=== PATIENT | female | born 1990 | race Caucasian/White ===

== ENCOUNTER 2020-02-07 13:38 | Emergency (ER) | payer OTHER, SELFPAY ==
[2020-02-07 13:48] VITALS: BP 109/59; PULSE 80; RESP 16; TEMP 36.8; O2SAT 100
--- NOTE | 2020-02-07 14:11 | ED.URI ---
HPI - URI/Sore Throat General Chief Complaint: Upper Respiratory Infection Stated Complaint: sore throat Time Seen by Provider: 02/07/20 14:11 Source: patient Mode of arrival: ambulatory Limitations: no limitations History of Present Illness HPI Narrative: Ken Cespedes is a 29 yo female with no PMH who is here with a sore throat , rated pain in throat as 9/10, headache today, that started 1 week ago. Related Data Allergies Allergy/AdvReac Type Severity Reaction Status Date / Time Penicillins Allergy Mild Rash Verified 02/07/20 14:04 Review of Systems Review of Systems: Narrative: CONSTITUTIONAL: Denies fever, chills, sweats. EYES: Denies visual changes, redness, discharge. ENT: Denies rhinorrhea, congestion, has sore throat, otalgia. Has headache CARDIOVASCULAR: Denies chest pain, palpitations, edema. RESPIRATORY: Denies dyspnea, wheezing, cough GASTROINTESTINAL: Denies abdominal pain, nausea, vomiting, diarrhea. GENITOURINARY: Denies dysuria, hematuria, abnormal discharge SKIN: Denies rash or itching. NEUROLOGIC: Denies numbness, or focal weakness. PSYCHIATRIC: Denies anxiety or depression. [facility] Family History Family History (Updated 02/07/20 @ 14:17 by Abena Sarmiento CNP) Other No active medical problems Social History Social History (Updated 02/07/20 @ 14:17 by Abena Sarmiento CNP) Smoking status: Never smoker Alcohol intake: current Gender identity (if verbalized by the patient): Female Exam Narrative: Exam Narrative: GENERAL: This is a well-nourished, well-developed patient, in mild distress. HEAD: normocephalic, atraumatic. EYES: Sclera clear/white. Vision is grossly intact. EARS: External ears normal, auditory canals clear and without drainage, TMs normal without perforation. Hearing grossly intact. NOSE: External nose normal without nasal discharge, nares without redness, no rhinorrhea. THROAT: Mucous membranes moist, erythema posterior pharynx with mucus but no exudate NECK: Neck supple, nmild tender CARDIOVASCULAR: Regular rate and rhythm without murmurs, gallops, or rubs. RESPIRATORY: Clear to auscultation. Breath sounds equal bilaterally. No wheezes, rales, or rhonchi. GASTROINTESTINAL: Abdomen soft, SKIN: warm, intact with no suspicious lesions or rash, good texture and turgor. NEURO: awake, alert, and oriented to person, place and time. There were no obvious focal neurologic abnormalities. Steady gait EXTREMITIES: Normal range of motion. BACK: Nontender without deformity Course Course Emergency Course: Nilo is started on prednisone, Jihan-discussed hydration take medication with patient. Patient states does not need a work excuse; patient is tested for COVID every Monday morning Vital Signs Vital signs: Vital Signs Temperature 98.2 F 02/07/20 13:48 Pulse Rate 80 02/07/20 13:48 Respiratory Rate 16 02/07/20 13:48 Blood Pressure 109/59 L 02/07/20 13:48 Pulse Oximetry 100 02/07/20 13:48 Temperature 98.2 F 02/07/20 13:48 Pulse Rate 80 02/07/20 13:48 Respiratory Rate 16 02/07/20 13:48 Blood Pressure 109/59 L 02/07/20 13:48 Pulse Oximetry 100 02/07/20 13:48 MDM - URI/Sore Throat Differential Diagnosis Differential diagnosis: Likely upper respiratory infection, sinusitis, pharyngitis and other Lab Data Labs: Strep Screen Presumptive Negative *(Reference Range: Negative)* Discharge Plan Discharge Clinical Impression: Cough Pharyngitis Qualifiers: Pharyngitis/tonsillitis etiology: unspecified etiology Qualified Code(s): J02.9 - Acute pharyngitis, unspecified Patient Disposition: Home, Self-Care Condition: Stable Instructions: Pharyngitis (ED) Additional Instructions: Sure to hydrate well, use Cepacol lozenges in addition to other medication for sore throat Prescriptions: New Cepacol Sore Throat (jair-men) 15-3.6 mg lozenge 1 lozenge MUCOUS MEM Q2-4H PRN (Reason: sore throat) Qt
== END 2020-02-07 14:25 | disposition home or self-care (01) ==
PROVIDERS: Emergency Provider Nurse Practitioner
DX: R05 Cough (principal); J02.9 Acute pharyngitis, unspecified
CPT/HCPCS: 87081; 87880; 99213; G0463

== ENCOUNTER 2020-08-30 15:09 | Emergency (ER) | payer OTHER, SELFPAY ==
[2020-08-30 15:33] VITALS: BP 113/57; RESP 16; TEMP 36.3; O2SAT 100
--- NOTE | 2020-08-30 15:47 | ED.GENADULT ---
HPI - General Adult General Chief complaint: Urogenital-Female Stated complaint: pos uti Source: patient Mode of arrival: ambulatory Limitations: no limitations History of Present Illness HPI narrative: Patient presents for evaluation of urinary symptoms. She reports urinary frequency for the last 2 weeks. Today she experienced some dysuria which is mild. She is also experiencing some low back pain bilaterally. No fever, chills, nausea, vomiting, abdominal pain, vaginal bleeding or discharge. LMP at the end of July. No recent STI exposures. States no chance of . She has had urinary tract infections in the past and this feels similar. No additional complaints or concerns. Related Data Allergies Allergy/AdvReac Type Severity Reaction Status Date / Time Penicillins Allergy Mild Rash Verified 02/07/20 14:04 Review of Systems Review of Systems: Narrative: CONSTITUTIONAL: Denies fever, chills, or sweats. EYES: Denies visual changes, redness, or discharge. ENT: Denies rhinorrhea, congestion, sore throat, or otalgia. CARDIOVASCULAR: Denies chest pain, palpitations, or edema. RESPIRATORY: Denies cough or dyspnea. GASTROINTESTINAL: Denies abdominal pain, nausea, vomiting, or diarrhea. GENITOURINARY: Reports urinary frequency and mild dysuria. Denies hematuria and other urinary symptoms. SKIN: Denies rash or itching. MUSCULOSKELETAL: Reports low back pain. Denies joint pain, or myalgia. NEUROLOGIC: Denies headache, numbness, dizziness, or weakness. PSYCHIATRIC: Denies anxiety or depression. PMFSH Past Medical History Medical History (Updated 08/30/20 @ 15:56 by PIA Hurtado, ) Depression Surgical History Surgical History No pertinent past surgical history Family History Family History Mother No active medical problems Social History Social History Smoking status: Never smoker Substance use: never Living arrangements: with family Gender identity (if verbalized by the patient): Female Spiritual care concerns: No Exam Narrative: Exam Narrative: GENERAL: Well-appearing, well-nourished, and in no acute distress. HEAD: Normocephalic, atraumatic. EYES: PERRLA and EOMI. ENT: Nares clear, no rhinorrhea or epistaxis. Mucous membranes moist. Oropharynx without tonsillar hypertrophy exudate or other lesions. Bilateral TMs pearly redd nonbulging NECK: Supple. No adenopathy or masses. No carotid bruits or JVD CHEST: Clear to auscultation. No respiratory distress. No wheezes rales or rhonchi HEART: Regular rate and rhythm. No murmur heard. Normal peripheral pulses. ABDOMEN: Soft, nontender, nondistended, normal active bowel sounds. No abdominal tenderness, no CVA tenderness EXTREMITIES: Normal range of motion. No edema. SKIN: Warm, dry, no rash. NEURO: No focal deficits. Alert and oriented x3. PSYCH: Normal mood and affect. Course Course Emergency Course: 30-year-old female presents with 2-week history of urinary frequency with mild dysuria as of today. Urine dipstick shows 1+ leukocytes. She states that there is no chance of . Offered to check for STIs, which patient declined. States that current symptoms are consistent with those previously experienced with urinary tract infections. Will start Macrobid. Send urine for culture. Follow-up outpatient for further evaluation and treatment and return for any decline in condition. Vital Signs Vital signs: Vital Signs Temperature 36.3 C L 08/30/20 15:33 Respiratory Rate 16 08/30/20 15:33 Blood Pressure 113/57 L 08/30/20 15:33 Pulse Oximetry 100 08/30/20 15:33 Temperature 36.3 C L 08/30/20 15:33 Respiratory Rate 16 08/30/20 15:33 Blood Pressure 113/57 L 08/30/20 15:33 Pulse Oximetry 100 08/30/20 15:33 Medical Decision
== END 2020-08-30 16:08 | disposition home or self-care (01) ==
PROVIDERS: Emergency Provider Nurse Practitioner
DX: N30.00 Acute cystitis without hematuria (principal)
CPT/HCPCS: 81003; 87077; 87086; 87088; 87186; 99213; G0463

== ENCOUNTER 2021-02-01 16:46 | Emergency (ER) | payer OTHER, SELFPAY ==
[2021-02-01 16:52] VITALS: BP 129/74; PULSE 84; RESP 18; TEMP 37.1; O2SAT 100
--- NOTE | 2021-02-01 17:34 | ED.GENADULT ---
HPI - General Adult General Chief complaint: Urogenital-Female Stated complaint: Possible UTI Time Seen by Provider: 02/01/21 17:36 Source: patient and RN notes reviewed Mode of arrival: ambulatory Limitations: no limitations History of Present Illness HPI narrative: 30 year old female who presents to [facility] care with 2 day history of frequency , urgency of urination with burning with urination. Patient states that she has some back pain but hard to tell if it is her chronic pain or if related to UTI, denies any visual blood in urine, denies any know fevers chills or sweats. no nausea or acute abdominal discomfort. Patient also states one week duration of pain to the right lower #30 tooth with the back of tooth eroded with some redness and swelling of the gums, patient states she has noted some foul clear drainage from area. Patient denies any difficulty with her breathing or any difficulty swallowing, no trismus noted. MD complaint: UTI complaints and dental Onset (ago): day(s) (2days of UTI symptoms, 1 week of dental pain) Location: mouth (dental abscess and dental caries #30) and back (lower) Radiation: non-radiation Severity: severe Severity scale (1-10): 10 Quality: burning and aching Pain Consistency: constant Relieving factors: none Exacerbating factors: cold therapy and eating Treatments prior to arrival: none Related Data Home Medications Medication Instructions Recorded Confirmed acetaminophen-codeine 1 - 2 tablet PO Q6H PRN 02/01/21 02/01/21 methocarbamol 750 mg PO QID 02/01/21 02/01/21 sertraline 100 mg PO DAILY 02/01/21 02/01/21 Allergies Allergy/AdvReac Type Severity Reaction Status Date / Time Penicillins Allergy Mild Rash Verified 02/01/21 17:07 Review of Systems Review of Systems: Narrative: CONSTITUTIONAL: Denies fever, chills, or sweats. EYES: Denies visual changes, redness, or discharge. ENT: Denies rhinorrhea, congestion, sore throat, or otalgia.positive for dental pain #30 tooth CARDIOVASCULAR: Denies chest pain, palpitations, or edema. RESPIRATORY: Denies cough or dyspnea. GASTROINTESTINAL: Denies abdominal pain, nausea, vomiting, or diarrhea. GENITOURINARY: Positive dysuria no visible hematuria. SKIN: Denies rash or itching. MUSCULOSKELETAL: Positive for chronic lower back pain, joint pain, or myalgia. NEUROLOGIC: Denies headache, numbness, or weakness. PSYCHIATRIC: Denies anxiety or depression. All systems reviewed & are unremarkable except as noted in HPI and below PMFSH Past Medical History Medical History (Updated 02/01/21 @ 18:22 by Raquel Logan NP) Chronic back pain Depression UTI (urinary tract infection) Surgical History Surgical History No pertinent past surgical history Family History Family History Mother No active medical problems Social History Social History (Updated 02/01/21 @ 18:22 by Raquel Logan NP) Smoking status: Never smoker Alcohol intake: current Alcohol use details: rare social Substance use: never Gender identity (if verbalized by the patient): Female Spiritual care concerns: No Comments At time of signature, agree with nursing past medical, surgical, social and family history. There is no relevant family history pertinent to the presenting complaint Exam Narrative: Exam Narrative: GENERAL: Well-appearing, well-nourished, and in no acute distress. HEAD: Normocephalic, atraumatic. EYES: PERRLA and EOMI. ENT: Nares clear, no rhinorrhea or epistaxis. Mucous membranes moist.TM normal with good light reflex, throat pink with no lesions noted or tonsil enlargement. #30 tooth has back eroded with swelling and redness surrounding tooth, NECK: Supple. no lymphadenopathy, no Dillon angina, no trismus noted. CHEST: Clear to auscultation. No respiratory distress. SAO2 100% on room air. HEART: Regular rate and rhythm. No murmur hear
== END 2021-02-01 17:58 | disposition home or self-care (01) ==
PROVIDERS: Emergency Provider Registered Nurse; PCP Family Medicine
DX: N39.0 Urinary tract infection, site not specified (principal); K04.7 Periapical abscess without sinus; F41.9 Anxiety disorder, unspecified
CPT/HCPCS: 81003; 87086; 99213; G0463

== ENCOUNTER 2021-05-13 15:15 | Emergency (ER) | payer OTHER, SELFPAY ==
[2021-05-13 15:20] VITALS: BP 115/63; PULSE 65; RESP 18; TEMP 37; O2SAT 100
--- NOTE | 2021-05-13 15:30 | ED.DENTAL ---
HPI - Dental/Oral General Chief complaint: Dental/Oral Stated complaint: Lump in mouth Time Seen by Provider: 05/13/21 15:30 Source: patient History of Present Illness HPI Narrative: Patient presents with a sore under her tongue at the base left side of her tongue. Patient states it is painful to touch and has not tried anything [id number] for her symptoms. Patient denies any complaints no rashes normally healthy. Related Data Allergies Allergy/AdvReac Type Severity Reaction Status Date / Time Penicillins Allergy Mild Rash Verified 05/13/21 15:31 Review of Systems Review of Systems: CONSTITUTIONAL: Denies fever, chills, or sweats. EYES: Denies visual changes, redness, or discharge. ENT: Denies rhinorrhea, congestion, sore throat, or otalgia. CARDIOVASCULAR: Denies chest pain, palpitations, or edema. RESPIRATORY: Denies cough or dyspnea. GASTROINTESTINAL: Denies abdominal pain, nausea, vomiting, or diarrhea. GENITOURINARY: Denies dysuria or hematuria. SKIN: Denies rash or itching. MUSCULOSKELETAL: Denies back pain, joint pain, or myalgia. NEUROLOGIC: Denies headache, numbness, or weakness. PSYCHIATRIC: Denies anxiety or depression. [facility] Past Medical History Medical History (Updated 05/13/21 @ 15:41 by PIA Hart) Chronic back pain Depression UTI (urinary tract infection) Surgical History Surgical History No pertinent past surgical history Family History Family History Mother No active medical problems Social History Social History (Updated 02/01/21 @ 18:22 by Raquel Logan NP) Smoking status: Never smoker Alcohol intake: current Alcohol use details: rare social Substance use: never Gender identity (if verbalized by the patient): Female Spiritual care concerns: No Comments At time of signature, agree with nursing past medical, surgical, social and family history. There is no relevant family history pertinent to the presenting complaint Exam Narrative: GENERAL: Well-appearing, well-nourished, and in no acute distress. HEAD: Normocephalic, atraumatic. EYES: PERRLA and EOMI. ENT: Nares clear, no rhinorrhea or epistaxis. Mucous membranes moist. NECK: Supple. CHEST: Clear to auscultation. No respiratory distress. HEART: Regular rate and rhythm. No murmur heard. Normal peripheral pulses. ABDOMEN: Soft, nontender, nondistended, normal active bowel sounds. EXTREMITIES: Normal range of motion. No edema. SKIN: Warm, dry, no rash. NEURO: No focal deficits. Alert and oriented x3. Becky Coma Scale Eye Opening: Spontaneous 4 Loraine Coma Scale Motor: Obeys Commands 6 Loraine Coma Scale Verbal: Oriented 5 Becky Coma Scale Total 15 HENMT: Mouth: Yes Abnormal oral and palatal mucosa present ulceration (to under sode of tongue consistent with canker sore) Course Vital Signs Vital signs: Vital Signs Temperature 37.0 C 05/13/21 15:20 Pulse Rate 65 05/13/21 15:20 Respiratory Rate 18 05/13/21 15:20 Blood Pressure 115/63 05/13/21 15:20 Pulse Oximetry 100 05/13/21 15:20 Temperature 37.0 C 05/13/21 15:20 Pulse Rate 65 05/13/21 15:20 Respiratory Rate 18 05/13/21 15:20 Blood Pressure 115/63 05/13/21 15:20 Pulse Oximetry 100 05/13/21 15:20 MDM - Dental/Oral Differential Diagnosis Differential diagnosis: Likely gingival abscess, dental caries, dental abscess, fracture of tooth, aphthous ulcer and other Discharge Plan Discharge Clinical Impression: Aphthous ulcer Patient Disposition: Home, Self-Care Condition: Stable Instructions: Antibiotic Form, Canker Sores (ED) Additional Instructions: Avoid any hot and/or spicy foods Use medication to canker sore as prescribed Follow-up with primary care provider in 2 to 3 days for reevaluation If any new or worsening symptoms go to ER immediately for further evaluation tr
== END 2021-05-13 15:45 | disposition home or self-care (01) ==
PROVIDERS: Emergency Provider Nurse Practitioner Family; PCP Family Medicine
DX: K12.0 Recurrent oral aphthae (principal)
CPT/HCPCS: 99213; G0463

== ENCOUNTER 2022-05-05 00:54 | Day surgery (SDC) | payer OTHER, SELFPAY ==
[2022-04-25 16:12] VITALS: BMI 24.8
--- NOTE | 2022-04-25 16:30 | PC.NURSE ---
Report to the Outpatient Waiting Room, entrance under the green pavilion located off [facility], at time 0600 on date 05/05/22. OR Time: 0730. Time changes happen often and if your time is changed the preop area will call you the afternoon before. - You and your visitor will be asked to self-screen and do not enter if you have any COVID symptoms. - Only one visitor and NO children visitors are allowed at this time. - The patient visitor is requested to leave or wait in car when not with patient due to restrictions. - A mask is required within the hospital. Patients may have clear liquids (water, carbonated beverages, clear teas, apple juice) until 3 hours prior to surgery with a maximum of 20 ounces 0430. - No food from midnight until time of surgery - Infants may have breast milk until 4 hours before surgery, infant formula 6 hours prior to surgery. - Children will be allowed to drink immediately following surgery. If applicable, please bring a bottle or sippy cup to assist with drinking. Juice, water, soda, and popsicles are readily available. For infants on formula, please bring formula the day of surgery. Pacifiers are allowed. Take the following medications with a SIP of water the morning of surgery: sertraline Medications to discontinue per physician multivitamin Date to take last dose 05/02/22 Please no make-up, nail german, hairspray, perfume, deodorant, or body powder the day of surgery. No jewelry (including any body piercings) or valuables the day of surgery, leave them at home. Please take a shower or bath the night before, or the morning of, surgery with an antibacterial soap. Wear comfortable, loose fitting clothing. Children are encouraged to wear pajamas. - Jewelry must be removed prior to entering the operating room. Rings and piercings that are not removed may be cut off. - The hospital will not accept responsibility for valuables. - Please leave all valuables, including medications, at home the day of surgery. If you are going home after surgery, a licensed rental car ferry driver must drive you home. - NO public transportation without another adult. - We recommend that an adult stay with you for 24 hours following discharge. - We also recommend that you do not drive, make important decision, drink alcoholic beverages, or take any drugs that were not prescribed by your health care provider for at least 24 hours after your discharge time. For Pediatric surgeries, we recommend two adults accompany the child home (only one inside the building at this time). Follow any additional instructions given to you from your surgeon. If you or anyone in your household have experienced Covid symptoms in the past week, please notify your surgeon or the nurse liaison at the phone number below for possible testing. Telephone instructions given to Ken Cespedes and asked if any additional questions and then verbalized understanding. Patient advised to call surgeon office or pre surgery nurse liaison [phone] if any additional questions.
[2022-05-05] VITALS (8 sets, daily range): BP systolic 105–130; BP diastolic 62–78; PULSE 76–114; RESP 12–24; TEMP 36.1–36.9; O2SAT 97–100
--- NOTE | 2022-05-05 06:50 | WPDANESEPPF ---
Anes - Initial Pre Proc Eval Procedure: Operation Date: 05/05/22 07:30 Proposed Procedures p Bilateral Breast Augmentation - Julio Cesar Harley MD Date/Time: 05/05/22 06:50 Surgeon: Julio Cesar Harley MD Pre Op Diagnosis: micromastia Patient Data Age: 32 Gender: F Height: 1.6 m Weight: 60.4 kg Last Vital Signs Temp 36.9 C 05/05/22 06:31 Pulse 76 05/05/22 06:31 Resp 16 05/05/22 06:31 BP 105/62 05/05/22 06:31 Pulse Ox 100 05/05/22 06:31 O2 Del Method Room Air 05/05/22 06:31 Allergies Allergy/AdvReac Type Severity Reaction Status Date / Time Penicillins Allergy Intermediate Hives Verified 05/05/22 06:37 Home Medications Medication Instructions Recorded Confirmed Type pediatric multivitamin no.25-folic 1 tablet PO DAILY 04/25/22 05/05/22 History acid 300 mcg chewable tablet (Flintstones Multivitamin) sertraline 100 mg tablet (Zoloft) 100 mg PO DAILY 04/25/22 05/05/22 History Patient hx anesthesia problems: none Family hx anesthesia problems: none Results Review: All pre-operative results and documents have been reviewed as part of the pre-operative evaluation. [facility] Past Medical History Medical History Chronic back pain Depression UTI (urinary tract infection) Surgical History Surgical History No pertinent past surgical history Family History Family History Mother No active medical problems Social History Social History Smoking status: Never smoker Alcohol intake: current Alcohol use details: rare social Substance use: never Living arrangements: alone Gender identity (if verbalized by the patient): Female Spiritual care concerns: No Anes - Eval Final PreProcedure Day of Procedure 05/05/22 06:50 Patient weight: normal Heart: regular rate and rhythm Lungs: clear to auscultation Airway: Mallampati scale class 1 Neurological: alert and oriented Last oral intake: >/= 8 hours ASA classification: II Emergent: no Anesthetic plan: proceed Anesthesia type and monitoring: general LMA and standard monitoring Results Review: All pre-operative results and documents have been reviewed as part of the pre-operative evaluation. Informed Consent: The patient's anesthetic plan and its attendant risks and benefits were discussed with the patient/family/POA. Questions were solicited and answers provided to the satisfaction of the patient/family/POA.
[2022-05-05] MEDS: LACTATED RINGERS 1,000 ML 30 ML IV CONT ×2 (06:53→08:23)
[2022-05-05] MEDS: SCOPOLAMINE 1.5 MG PATCH TRANSDERM (06:54)
--- NOTE | 2022-05-05 06:54 | WPDHPUPDATE1 ---
History and Physical Update Update Date/Time: 05/05/22 06:54 History and Physical has been reviewed, including an updated exam of the patient. There are NO changes in the patient's condition. Risks, benefits, and alternatives have been discussed and questions answered. Patient agrees to proceed with procedure.
--- NOTE | 2022-05-05 07:03 | W.PM.PROC2 ---
Procedure Note - Detailed Date of Procedure 05/05/22 Pre-op Diagnosis micromastia Post-op Diagnosis Same Procedure Performed Bilateral Augmentation Mammaplasty Surgeon Julio Cesar Harley MD Anesthesia General Findings Bilateral dual plane 1 augmentation Kalyan Cortez SoftTouch 485cc Right REF# [id number] SN [id number] Left REF# [id number] SN [id number] Description of Procedure She is here today for bilateral breast augmentation. Previously and again today the risks, benefits, alternatives were discussed in extensive detail. I wanted her to be very realistic about the risks involved as well as expectations. We discussed aftercare and what to monitor for. Made sure answered all of her questions to her satisfaction today and consent was obtained. Marked in the preoperative holding area with their verification. The patient was taken to the operating room placed supine on the operating table. Anesthesia was provided by anesthesiology. A surgical time-out was taken. We cleansed the skin and 1% lidocaine and 0.25% Marcaine with epinephrine was used anesthetize as a field block. She was prepped and draped in a standard sterile fashion. Tegaderm nipple Burger were placed. A 15 blade used to make an incision along the inframammary fold. Dissection was continued at 45 degree angle until the chest wall as identified. I incised the pectoralis major along its inferior border and completely released the inferior border leaving the medial border intact. I created a subpectoral pocket in the appropriate dimensions based on our preoperative planning for the implant. I then copiously irrigated with saline solution and verified a strict hemostasis. Next the use a triple antibiotic and Betadine containing solution to irrigate the pocket. I washed my gloves with the triple antibiotic and Betadine solution. We washed the implant immediately upon opening it with this solution and only opened it when we needed it. I used implant funnel and no-touch technique. The implant was introduced into the pocket using the funnel. Having verified positioning of the implant this was closed using 2-0 Vicryl followed by 3-0 Monocryl in a running subcuticular 4-0 Monocryl followed by tissue glue. Fluffs and surgical bra were placed. Patient was awoke and taken to PACU without difficulty. All instrument sponge counts were correct at the end of the case. Estimated Blood Loss 20 Drains No Packing No Pathology None sent Complications No immediate complications Condition Stable Disposition PACU
[2022-05-05] MEDS: TRANEXAMIC ACID 1,000MG/ISO100 1,000 MG/100 ML BAG 200 MG IVPB (07:23)
[2022-05-05] MEDS: BUPIVACAINE/EPINEPHRINE 0.25% 50 ML VIAL 30 ML INFILTRATE (07:24)
[2022-05-05] MEDS: NACL 0.9% IRRIG POUR BOTTLE 900 ML, GENTAMICIN SULFATE INJ 160 MG, CLINDAMYCIN PHOS INJ... IRRIGATION (07:24)
[2022-05-05] MEDS: LIDOCAINE HCL 1% PF 30 ML VIAL INFILTRATE (07:24)
[2022-05-05] MEDS: ceFAZolin 2 GM/D5W 50 ML 2 GM/50 ML BAG IVPB (07:30)
[2022-05-05] MEDS: HYDROmorphone HCL INJ (*CRX) 1 MG/ML SYR 0.5 MG IV PUSH ×4 (08:39→08:57)
[2022-05-05] MEDS: oxyCODONE HCL (*CRX) 5 MG TAB IR PO (09:42)
== END 2022-05-05 10:30 | disposition home or self-care (01) ==
PROVIDERS: PCP Family Medicine; Visit Provider Surgery Plastic and Reconstructive Surgery
PROC: (CPT 19325; principal; 2022-05-05 07:30)
DX: Z41.1 Encounter for cosmetic surgery (principal); N64.82 Hypoplasia of breast; F32.A Depression, unspecified
CPT/HCPCS: 19325; A9270; J0690; J1100; J1170; J1580; J2250; J2405; J2704; J3010; J7120

== ENCOUNTER 2023-07-25 10:42 | Emergency (ER) | payer OTHER, SELFPAY ==
[2023-07-25 10:54] VITALS: BP 105/70; PULSE 79; RESP 18; TEMP 37.1; O2SAT 100
--- NOTE | 2023-07-25 11:47 | ED.FEMALEGU ---
HPI - Female Genitourinary General Chief complaint: Urogenital-Female Stated complaint: Urinary Problem Time Seen by Provider: 07/25/23 11:48 Source: patient, RN notes reviewed and old records reviewed Mode of arrival: ambulatory Limitations: no limitations History of Present Illness HPI Narrative: 33 year old female who presents to [facility] care with complaints of urinary burning, foul odor of urine, and some frequency and urgency with voiding small amounts for the past 5 days with increased symptoms since last night. Patient reports no known fevers, chills or sweats, denies any nausea vomiting or diarrhea.Patient reports some perineal pressure and some low back pain, denies any CVA tenderness or any history of kidney stones. Patient denies any vaginal discharge or any concern for STD's MD elicited complaint: UTI Pertinent past history: other (UTI's) Onset (ago): day(s) (5) Severity: similar to previous episodes Severity scale (1-10): 4 Quality of pain: burning and aching Vaginal discharge: none Vaginal bleeding: none Related Data Home Medications Medication Instructions Recorded Confirmed pediatric multivitamin no.25-folic 1 tablet PO DAILY 04/25/22 07/25/23 acid 300 mcg chewable tablet (Flintstones Multivitamin) Allergies Allergy/AdvReac Type Severity Reaction Status Date / Time Penicillins Allergy Intermediate Hives Verified 07/25/23 11:14 Review of Systems Review of Systems: CONSTITUTIONAL: Denies fever, chills, or sweats. CARDIOVASCULAR: Denies chest pain, palpitations, or edema. RESPIRATORY: Denies cough or dyspnea. GASTROINTESTINAL: Denies abdominal pain, nausea, vomiting, or diarrhea. GENITOURINARY: Reports dysuria, frequency, urgency. Denies flank pain or hematuria, reports perineal pressure SKIN: Denies rash or itching. MUSCULOSKELETAL: reports low back pain or myalgia. Denies CVA tenderness NEUROLOGIC: Denies headache All systems reviewed & are unremarkable except as noted in HPI and below PMFSH Past Medical History Medical History (Updated 07/26/23 @ 00:02 by Artemio Rodriguez) Chronic back pain Depression UTI (urinary tract infection) Surgical History Surgical History (Updated 07/26/23 @ 21:24 by Raquel Logan NP) H/O breast augmentation Family History Family History Mother No active medical problems Social History Social History Smoking status: Never smoker Alcohol intake: current Alcohol use details: rare social Substance use: never Living arrangements: alone Gender identity (if verbalized by the patient): Female Spiritual care concerns: No Comments At time of signature, agree with nursing past medical, surgical, social and family history. There is no relevant family history pertinent to the presenting complaint Exam Narrative: GENERAL: Well-appearing, well-nourished, and in no acute distress. HEAD: Normocephalic, atraumatic. NECK: Supple. no lymphadenopathy CHEST: Clear to auscultation. No respiratory distress.SAO2 100% on room air HEART: Regular rate and rhythm. No murmur heard. Normal peripheral pulses. ABDOMEN: Soft, nontender, nondistended, normal active bowel sounds. No CVA tenderness perineal pressure reported with dysuria, urgency frequency and voiding of small amounts. EXTREMITIES: Normal range of motion. No edema. SKIN: Warm, dry, no rash. NEURO: No focal deficits. Alert and oriented x3. Course Course Emergency Course: Patient is aware of diagnosis, understands and agrees to treatment plan.? Anticipatory guidance given.? Patient agrees to follow-up as directed and is aware of reasons to seek care at the emergency department. Portions of this record may have been created with voice recognition software Level of Care: Express Care Visit Vital Signs Vital signs: Vital Signs Temperature 37.1 C 07/25/23 10:54 Pulse
== END 2023-07-25 12:00 | disposition home or self-care (01) ==
PROVIDERS: Emergency Provider Registered Nurse; PCP Family Medicine
DX: R30.0 Dysuria (principal); R39.15 Urgency of urination
CPT/HCPCS: 81003; 87086; 87088; 99213; G0463

== ENCOUNTER 2024-01-15 16:47 | Emergency (ER) | payer OTHER, SELFPAY ==
[2024-01-15 16:56] VITALS: BP 125/78; PULSE 78; RESP 20; TEMP 37.1; O2SAT 100
--- NOTE | 2024-01-15 16:59 | ED.EYEPROB ---
HPI - Eye Problem General Chief complaint: Eye Problems Stated complaint: poss pink eye Source: patient Mode of arrival: ambulatory Limitations: no limitations History of Present Illness HPI Narrative: 33-year-old female presented for complaint of right eye redness and itching with yellowed drainage. Onset today. Endorses nasal congestion, sore throat cough over the past several days. Denies shortness of breath, wheezing nausea vomiting, fevers or chills. No treatment prior to arrival. MD chief complaint: eye pain Related Data Allergies Allergy/AdvReac Type Severity Reaction Status Date / Time Penicillins Allergy Intermediate Hives Verified 07/25/23 11:14 Review of Systems Review of Systems: CONSTITUTIONAL: Denies body aches, fever, chills EYES:Endorses redness and drainage to right eye; Denies visual changes, FB sensation, photophobia ENT: Denies rhinorrhea, congestion, sore throat, or otalgia. CARDIOVASCULAR: Denies chest pain, palpitations RESPIRATORY: Denies cough or dyspnea. SKIN: Denies rash, itching, or wounds. MUSCULOSKELETAL: Denies back pain, joint pain, or myalgia. NEUROLOGIC: Denies headache, numbness, tingling, or weakness. All systems reviewed & are unremarkable except as noted in HPI and below PMFSH Past Medical History Medical History Chronic back pain Depression UTI (urinary tract infection) Surgical History Surgical History H/O breast augmentation Family History Family History Mother No active medical problems Social History Social History Smoking status: Never smoker Alcohol intake: current Alcohol use details: rare social Substance use: never Living arrangements: alone Gender identity (if verbalized by the patient): Female Spiritual care concerns: No Comments At time of signature, I have reviewed and agree with nursing past medical, surgical, social and family history unless otherwise noted. Please see nursing chart for further information. There is no relevant family history pertinent to the presenting complaint Exam Narrative: GENERAL: Well-appearing EYES: right conjunctival injection and purulent drainage, no eye lid swelling/redness, PERRLA EOMI. Lid eversion shows no foreign body ENT: Mucous membranes pink and moist. No rhinorrhea. TMs normal bilaterally. Throat normal. Uvula midline. CHEST: Clear to auscultation. ABDOMEN: Soft, nontender, nondistended SKIN: Warm, dry, no rash. Normal skin turgor. NEURO: No focal deficits. Alert and oriented x3 PSYCH: Normal affect. Course Course Emergency Course: Patient is aware of diagnosis, understands and agrees to treatment plan. Anticipatory guidance given. Patient agrees to follow-up as directed and is aware of reasons to seek care at the emergency department. Portions of this record may have been created with voice recognition software Level of Care: Express Care Visit Vital Signs Vital signs: Vital Signs Temperature 98.7 F 01/15/24 16:56 Pulse Rate 78 01/15/24 16:56 Respiratory Rate 20 01/15/24 16:56 Blood Pressure 125/78 01/15/24 16:56 Pulse Oximetry 100 01/15/24 16:56 Oxygen Delivery Room Air 01/15/24 16:56 Temperature 98.7 F 01/15/24 16:56 Pulse Rate 78 01/15/24 16:56 Respiratory Rate 20 01/15/24 16:56 Blood Pressure 125/78 01/15/24 16:56 Pulse Oximetry 100 01/15/24 16:56 Oxygen Delivery Room Air 01/15/24 16:56 MDM - Eye Problem Differential Diagnosis Differential diagnosis: Likely corneal abrasion, conjunctivitis, acute iritis and other Discharge Plan Discharge Clinical Impression: Bacterial conjunctivitis Patient Disposition: Home, Self-Care Condition: Stable Instructions: Antibiotic Form,
== END 2024-01-15 17:15 | disposition home or self-care (01) ==
PROVIDERS: Emergency Provider Nurse Practitioner Family; PCP Family Medicine
DX: H10.9 Unspecified conjunctivitis (principal)
CPT/HCPCS: 99213; G0463

== ENCOUNTER 2024-01-24 18:05 | Emergency (ER) | payer OTHER, SELFPAY ==
[2024-01-24 18:08] VITALS: BP 131/67; PULSE 79; RESP 20; TEMP 37.1; O2SAT 100
--- NOTE | 2024-01-24 18:18 | ED.URI ---
HPI - URI/Sore Throat General Chief Complaint: Upper Respiratory Infection Stated Complaint: Strep test Time Seen by Provider: 01/24/24 18:21 History of Present Illness HPI Narrative: 33-year-old female presented for complaint of sore throat and nasal congestion for about 4 weeks. Endorses painful swallow, throat pain is worse at night. She states she has not taken the time to be evaluated. She has taking ibuprofen. Denies shortness of breath, wheezing nausea, vomiting, fevers or chills. Related Data Allergies Allergy/AdvReac Type Severity Reaction Status Date / Time Penicillins Allergy Intermediate Hives Verified 01/24/24 18:10 Review of Systems Review of Systems: CONSTITUTIONAL: Denies body aches, fever, chills, or sweats. EYES: Denies visual changes, redness, or discharge. ENT: reports sore throat, rhinorrhea, congestion CARDIOVASCULAR: Denies chest pain, palpitations, or edema. RESPIRATORY: Denies dyspnea. GASTROINTESTINAL: Denies abdominal pain, nausea, vomiting, or diarrhea. SKIN: Denies rash, itching, or wounds. MUSCULOSKELETAL: Denies back pain, joint pain, or myalgia. NEUROLOGIC: Denies headache PMFSH Past Medical History Medical History Chronic back pain Depression UTI (urinary tract infection) Surgical History Surgical History H/O breast augmentation Family History Family History Mother No active medical problems Social History Social History Smoking status: Never smoker Alcohol intake: current Alcohol use details: rare social Substance use: never Living arrangements: alone Gender identity (if verbalized by the patient): Female Spiritual care concerns: No Exam Narrative: GENERAL: well-appearing, no acute distress. EYES: conjunctivae clear ENT: Mucous membranes moist. TMs pearly redd with normal light reflex bilaterally; no tragal tenderness. Oropharynx erythematous without lesions. Tonsils not enlarged and without exudate. No drooling, no hoarseness, no trismus, uvula midline. No tripod positioning, hot potato voice, or soft palate swelling. NECK: Supple. No lymphadenopathy CHEST: Clear to auscultation, breath sounds equal. No respiratory distress, speaks in full sentences. HEART: Regular rate and rhythm. No murmur heard. SKIN: Warm, dry, no rash. NEURO: Alert and oriented x3. Course Course Emergency Course: Patient is aware of diagnosis, understands and agrees to treatment plan. Anticipatory guidance given. Patient agrees to follow-up as directed and is aware of reasons to seek care at the emergency department. Portions of this record may have been created with voice recognition software Level of Care: Express Care Visit Vital Signs Vital signs: Vital Signs Temperature 98.7 F 01/24/24 18:08 Pulse Rate 79 01/24/24 18:08 Respiratory Rate 20 01/24/24 18:08 Blood Pressure 131/67 01/24/24 18:08 Pulse Oximetry 100 01/24/24 18:08 Oxygen Delivery Room Air 01/24/24 18:08 Temperature 98.7 F 01/24/24 18:08 Pulse Rate 79 01/24/24 18:08 Respiratory Rate 20 01/24/24 18:08 Blood Pressure 131/67 01/24/24 18:08 Pulse Oximetry 100 01/24/24 18:08 Oxygen Delivery Room Air 01/24/24 18:08 MDM - URI/Sore Throat MDM Narrative Medical decision making narrative: neg strep result reviewed with pt. Advise supportive treatments. Patient is appropriate for outpatient treatment and follow-up. Differential Diagnosis Differential diagnosis: Likely upper respiratory infection, viral infection and pharyngitis Discharge Plan Discharge Clinical Impression: Upper respiratory infection Patient Disposition: Home, Self-Care Condition: Stable Instructions: Antibiotic Form, Rhinosinusitis (ED) Additiona
[2024-01-24 18:20] VITALS: BP 131/67; PULSE 79; RESP 20; TEMP 37.1; O2SAT 100
[2024-01-24 18:44] LABS: EDSTREPNEGPOS1 Presumptive Negative
== END 2024-01-24 18:30 | disposition home or self-care (01) ==
PROVIDERS: Emergency Provider Nurse Practitioner Family; PCP Family Medicine
DX: J06.9 Acute upper respiratory infection, unspecified (principal)
CPT/HCPCS: 87081; 87880; 99213; G0463

== ENCOUNTER 2024-02-13 08:45 | Emergency (ER) | payer OTHER, SELFPAY ==
[2024-02-13 08:52] VITALS: BP 115/58; PULSE 73; RESP 18; TEMP 36.7; O2SAT 100
--- NOTE | 2024-02-13 08:56 | ED.EYEPROB ---
HPI - Eye Problem General Chief complaint: Eye Problems Stated complaint: left eye Time Seen by Provider: 02/13/24 08:55 Source: patient and RN notes reviewed Mode of arrival: ambulatory Limitations: no limitations History of Present Illness HPI Narrative: 33 year old female presents concern for left upper eyelid redness, itchiness for 3 days. She denies drainage from the eye, eye redness, vision changes, pain. She reports she is allergic to poison brody, she has been outside mowing the lawn but has no known direct exposure poison brody. chief complaint: other (Eyelid itchiness) Related Data Allergies Allergy/AdvReac Type Severity Reaction Status Date / Time Penicillins Allergy Intermediate Hives Verified 01/24/24 18:10 Review of Systems Review of Systems: CONSTITUTIONAL: Denies malaise, chills, sweats, or fever. EYES: Denies visual changes. Denies eye redness, irritation, discharge. ENT: Denies rhinorrhea, congestion, sinus pain, otalgia or sore throat. SKIN: Reports left upper eyelid redness, itchiness NEUROLOGIC: Denies numbness, weakness, or headache. PSYCHIATRIC: Denies anxiety or depression. All systems reviewed & are unremarkable except as noted in HPI and below PMFSH Past Medical History Medical History Chronic back pain Depression UTI (urinary tract infection) Surgical History Surgical History H/O breast augmentation Family History Family History Mother No active medical problems Social History Social History Smoking status: Never smoker Alcohol intake: current Alcohol use details: rare social Substance use: never Living arrangements: alone Gender identity (if verbalized by the patient): Female Spiritual care concerns: No Comments At time of signature, agree with nursing past medical, surgical, social and family history. There is no relevant family history pertinent to the presenting complaint Exam Narrative: GENERAL: Well-appearing, well-nourished, and in no acute distress. HEAD: Normocephalic, atraumatic. EYES: PERRLA, sclera clear, and EOMI. No nystagmus. Bilateral conjunctivae and sclera clear. Right Upper and lower eyelid unremarkable, no periorbital edema noted ENT: Nares clear, turbinates pink, no rhinorrhea or epistaxis. Mucous membranes moist. TM pearly redd with sharp light reflex bilaterally; no tragal tenderness. NECK: Supple. CHEST: No respiratory distress. Speaks in full sentences. HEART: Regular rate and rhythm. SKIN: Warm, dry. Left eyelid erythematous, plaque like rash NEURO: Alert and oriented x3. PSYCH: Normal mood and affect Course Course Emergency Course: Patient is aware of diagnosis, understands and agrees to treatment plan. Anticipatory guidance given. Patient agrees to follow-up as directed and is aware of reasons to seek care at the emergency department. Portions of this record may have been created with voice recognition software Level of Care: Express Care Visit Vital Signs Vital signs: Reviewed. MDM - Eye Problem MDM Narrative Medical decision making narrative: Consideration of the following conditions may be warranted for the presenting problem, they are not final diagnoses: Dermatitis, Bacterial conjunctivitis, allergic conjunctivitis, viral conjunctivitis, foreign body, blepharitis, chalazion, hordeolum, corneal abrasion, preseptal cellulitis, orbital cellulitis. No evidence of proptosis, ophthalmoplegia, vision loss, pain with eye movement. Exam findings show no acute concerns or changes; patient is non-toxic appearing and is in no distress. Patient is appropriate for outpatient treatment and follow-up. Critical Care Time Critical Care Time Critical Care Time: No Discharge Plan Discharge Clinical Impressi
== END 2024-02-13 09:14 | disposition home or self-care (01) ==
PROVIDERS: Emergency Provider Nurse Practitioner; PCP Family Medicine
DX: L30.9 Dermatitis, unspecified (principal)
CPT/HCPCS: 99213; G0463

== ENCOUNTER 2024-10-07 08:17 | Emergency (ER) | payer OTHER, SELFPAY ==
[2024-10-07 08:26] VITALS: BP 128/59; PULSE 88; RESP 20; TEMP 36.3; O2SAT 100
--- OUTSIDE RECORDS SUMMARY | 2024-10-07 08:36 | XMS_ITS | Clinical Summary ---
Author Organization [facility] Address [address] [address] Care Team Providers Care Solution Make Up Operator Name Role Phone Andrew Brownlee MD Primary Care Provider [phone] Allergies Active Allergy Reactions Criticality Noted Date Comments Penicillins Hives,Rash Reaction: Hives, Skin Rash, , Medications No known medications Active Problems No known active problems Social History Tobacco Use Types Packs/Day Years Used Date Smoking Tobacco: Never Alcohol Use Standard Drinks/Week Comments No 0 (1 standard drink = 0.6 oz pur e alcohol) Personal Safety Answer Date Recorded Getting School Help Needed Not on file 02/02 Comments Unknown Sex and Gender Information Value Date Recorded Sex Assigned at Not on file Legal Sex Female 5:50 PM 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 Gender Identity Not on file Sexual Orientation Not on file Obstetrics History Last Filed Vital Signs Vital Sign Reading Time Taken Comments Blood Pressure 118/60 01/14/2023 4:16 PM CDT Pulse 91 01/14/2023 4:16 PM CDT Temperature 36.5 C (97.7 F) 01/14/2023 4:16 PM CDT Respiratory Rate 18 01/14/2023 4:16 PM CDT Oxygen Saturation 100% 01/14/2023 4:16 PM CDT Inhaled Oxygen Concentration - - Weight 65.8 kg (145 lb) 01/14/2023 4:16 PM CDT Height 160 cm (5' 3 ) 01/14/2023 4:16 PM CDT Body Mass Index 25.69 01/14/2023 4:16 PM CDT Plan of Treatment Health Maintenance Due Date Last Done Comments Cervical Cancer Screening 1990 Depression Screening 1991 Hepatitis C Screening 1991 Regular Well Visit/Exam 18-64 2009 Varicella Vaccines (2 of 2 - 13+ 2-dose series) 02/09/2016 01/12/2016 Covid-19 Vaccine (2 - 2023- season) 2024 02/10/2021 Influenza Vaccine (#1) 2024 , 04/15/2021, 07/01/2017, Additional history exists DTaP/Tdap/Td Vaccine (10 - Td or Tdap) 07/01/2027 07/01/2017, 01/12/2016, 06/05/2013, Additional history exists Hepatitis B Screening Completed 03/26/1998 , 11/21/1997, 10/22/1997 HPV Vaccines Aged Out No longer eligi ble based on patient's age to complete this topic Pneumococcal vaccine <65 Aged Out No longer eligible based on patient's age to complete this topic Insurance [facility] Care Teams Solution Make Up Operator Relationship Specialty Start Date End Date Andrew Brownlee MD [address] [address] PCP - General Family Medicine 08/31/22
--- OUTSIDE RECORDS SUMMARY | 2024-10-07 08:36 | XMS_ITS | Encounter Summary ---
Author Organization [facility] Address [address] [place] [address] Phone Care Team Providers Care Business Performance Analyst Name Role Phone Catina Ram MD Unavailable Andrew Brownlee MD Primary Care Provider [phone] Reason for Visit * Reason Comments Medication Refill Encounter Details Date Type Department Care Team (Late st Contact Info) Description 05/16/2021 Refill [facility] [address] [place] [address] Andrew Brownlee MD [address] [place] [address] Medication Refill Social History Tobacco Use Types Packs/Day Years Used Date Smoking Tobacco: Never Smokeless Tobacco: Never Alcohol Use Standard Drinks/Week Comments No 0 (1 standard drink = 0.6 oz pur e alcohol) PHQ-2 Answer Date Recorded Total Score - Questions 1-9 3 040 08/2020 Education Answer Date Recorded What is the highest level of school you have completed or the highest degree you have received? Some college, no degree 08/02/2020 Sexually Active Control Partners Comments Not Currently Male Comments No Sex and Gender Information Value Date Recorded Sex Assigned at Not on file Legal Sex Female 7:06 PM CDT Gender Identity Not on file Sexual Orientation Not on file documented as of this encounter Miscellaneous Notes * Telephone Encounter - Marylu Khan RN - 05/18/2021 10:53 AM CDT Medication failed the protocol, provider to review and approve the medication order if appropriate. Requested Prescriptions Pending Prescriptions Disp Refills sertraline (ZOLOFT) 100 MG Tablet [Pharmacy Med Name: SERTRALINE HCL 100 MG TABLET] 45 Tablet 2 Sig: TAKE 1 AND 1/2 TABLETS BY MOUTH DAILY SSRI (6 Month Refill Only) Protocol Failed - 05/16/2021 5:02 PM Failed - Patient has established therapy with SSRI for at least 6 months Passed - No test in the past 12 months or most recent test was negative Passed - No active on record Passed - Visit with relevant provider in past 6 months or upcoming 90 days Recent Visits Date Type Provider Dept 01/28/21 Office Visit Andrew Brownlee MD [facility] Showing recent visits within past 182 days and meeting all other requirements Future Appointments No visits were found meeting these conditions. Showing future appointments within next 90 days and meeting all other requirements Passed - Has an encounter in the past 6 months with a depression, anxiety, adjustment disorder, OCD, or PTSD visit diagnosis documented in this encounter Plan of Treatment Not on file documented as of this encounter Visit Diagnoses Diagnosis Anxiety Anxiety state, unspecified documented in this encounter Additional Health Concerns Assessment Noted Time PHQ-9 Depression Total Score: 3 10/24/19 21 9:00 AM CDT documented as of this encounter Care Teams Business Performance Analyst Relationship Specialty Start Date End Date Andrew Brownlee MD PCP - General Family Medicine 01/14/19 04/10/24 Catina Ram MD Consulting Physician Obstetrics & Gynecology 05/16/16 documented as of this encounter
--- OUTSIDE RECORDS SUMMARY | 2024-10-07 08:36 | XMS_ITS | Encounter Summary ---
Author Organization [facility] Address [address] [facility] [place] [address] Phone Care Team Providers Care Supervisor Harvesting Name Role Phone Catina Ram MD Unavailable [phone] Andrew Brownlee MD Primary Care Provider [phone] Reason for Visit * Reason Comments Medication Refill Encounter Details Date Type Department Care Team (Late st Contact Info) Description 07/25/2021 Refill [facility] - Family Medicine - [address] [place] [id number] Andrew Brownlee MD [address] [place] [address] Medication Refill Social History Tobacco Use Types Packs/Day Years Used Date Smoking Tobacco: Never Smokeless Tobacco: Never Alcohol Use Standard Drinks/Week Comments No 0 (1 standard drink = 0.6 oz pur e alcohol) PHQ-2 Answer Date Recorded Total Score - Questions 1-9 3 08/2020 Education Answer Date Recorded What is [...] encounter Miscellaneous Notes * Telephone Encounter - Shraddha Schaefer RN - 07/26/2021 6:23 PM CST Medication failed the protocol, provider to review and approve the medication order if appropriate. Last fill 05/18/2021 for a 30 day supply. Requested Prescriptions Pending Prescriptions Disp Refills sertraline (ZOLOFT) 100 MG Tablet [Pharmacy Med Name: SERTRALINE 100MG TABLETS] 30 Tablet Sig: TAKE 1 TABLET BY MOUTH DAILY SSRI (6 Month Refill Only) Protocol Failed - 07/25/2021 3:45 PM Failed - Patient has established therapy with SSRI for at least 6 months Passed - No test in the past 12 months or most recent test was negative Passed - No active on record Passed - Visit with relevant provider in past 6 months or upcoming 90 days Recent Visits Date Type Provider Dept 01/28/21 Office Visit Andrew Brownlee MD [facility] Showing recent visits within past 182 days and meeting all other requirements Future Appointments No visits were found meeting these conditions. Showing future appointments within next 90 days and meeting all other requirements Passed - Has an encounter in the past 6 months with a depression, anxiety, adjustment disorder, OCD, or PTSD visit diagnosis ATOLOGICAL SURGEON documented in this encounter Plan of Treatment Not on file documented as of this encounter Visit Diagnoses Diagnosis Anxiety Anxiety state, unspecified documented in this encounter Additional Health Concerns Assessment Noted Time PHQ-9 Depression Total Score: 3 10/24/19 21 9:00 AM CDT documented as of this encounter Care Teams Supervisor Harvesting Relationship Specialty Start Date End Date Andrew Brownlee MD PCP - General Family Medicine 01/14/19 04/10/24 Catina Ram MD Consulting Physician Obstetrics & Gynecology 05/16/16 documented as of this encounter
--- OUTSIDE RECORDS SUMMARY | 2024-10-07 08:36 | XMS_ITS ---
Care Plan - [facility] Created on: October 07, 2024 COBY PHAM Elliott : 1990 Sex: Female Author Organization [facility] Address [address] [place] [address] Phone Care Team Providers Care Production Support Specialist Name Role Phone TAMMY LEI, MICHELLE C Unavailable [phone]
--- OUTSIDE RECORDS SUMMARY | 2024-10-07 08:36 | XMS_ITS | Clinical Summary ---
Author Organization [facility] Address [address] [place] [address] Phone Care Team Providers Care Label Folder Name Role Phone TAMMY LEI, MICHELLE Dorman Unavailable [phone] Reason for Visit and Chief Complaint gynecologic annual exam - The Chief Complaint is: had tender area under right armpit after Covid vaccine, but now is gone Problems Includes: Problems addressed during this encounter and other active Problems Current Visit Onset Date Resolved Date Provider Conditio n Status History of Allergic Rhinitis 12/23/2016 Unknown MICHELLE MUNOZ MD Resolved Last Documented On 11/09/2017 9:46AM ; [facility] Note: was Closed. History of Depression 12/23/2016 Unknown MICHELLE MUNOZ MD Resolved Last Documented On 11/09/2017 9:46AM ; [facility] Note: was Closed. History of Recurrent Loss (Gravid) 12/23/2016 Unknown MICHELLE MUNOZ MD Resolved Last Documented On 11/09/2017 9:46AM ; [facility] Note: was Closed. Depression 11/24/2016 JOSY Ovalle DIANE BC Active Last Documented On 11/24/2016 2:39PM ; [facility] Note: Unchanged Past Visits Onset Date Resolved Date Provider Condition Status Nephrolithiasis 06/27/2018 JOSY BARRAGAN P BC Active Last Documented On 8 10:06AM ; [facility] Type AB blood, Rh positive 07/12/2016 JOSY SEXTON RN DIANE BC Active Last Documented On 6 2:16PM ; [facility] Plan of Treatment - Clinical summary provided to patient - Last Documented On 01/18/2021 11:03AM ; [facility] PT TO CALL WITH ANY CHANGE IN STATUS ALL QUESTIONS ANSWERED WITH UNDERSTANDING VERBALIZED BY PT. - Last Documented On 01/18/2021 11:03AM ; [facility] Referrals To Diagnosis Neurologist [facility] [address] [place] [address] - Low back pain Note: dull pain w/palpation at site of epidural from 2017 delivery, rates 6 on 0-10 scale Last Documented On 2 11:12AM ; [facility] Instructions to patient Instructions for patient : B reast Self Exam discussed and technique reviewed Last Documented On 10:42AM ; [facility] Use a condom during sexual i ntercourse Last Documented On 10:42AM ; [facility] Instructed to call if excess chris bleeding or abdominal/pelvic pain Last Documented On 10:42AM ; [facility] Recommend diet and exercise at least 30 min three times per week Last Documented On 10:42AM ; [facility] Education and Decision Aids were provided during visit for: Patient Education: Daily yan cium and vitamin D Last Documented On 10:42AM ; [facility] Assessments Includes: Assessments from this encounter Findings - NORMAL FEMALE EXAM - Last Documented On 01/18/2021 11:03AM ; [facility] - Screen malignant neoplasm cervix - Last Documented On 01/18/2021 11:03AM ; [facility] Instructions Includes: Instructions from this encounter Instructions to patient Instructions for patient : B reast Self Exam discussed and technique reviewed Last Documented On 10:42AM ; [facility] Use a condom during sexual i ntercourse Last Documented On 10:42AM ; [facility] Instructed to call if excess chris bleeding or abdominal/pelvic pain Last Documented On 10:42AM ; [facility] Recommend diet and exercise at least 30 min three times per week Last Documented On 06/28/202 1 10:42AM ; [facility] Education and Decision Aids were provided during visit for: Patient Education: Daily yan cium and vitamin D Last Documented On 1 10:42AM ; [facility] Medical Equipment - Implanted Devices Includes: Current Devices No Medical Equipment Recorded Medications Includes: Medications discussed during this encounter and other current Medications Discontinued / Stopped on this date on 10/21/2019 [facility] Oral Capsule Provider: Diagnosis: Last Documented On 1 10:36AM By TRISTON SAPP LPN ; [facility] Sertraline HCl 100 MG Oral Tablet Provide r: Diagnosis: Last Documented On 1 10:36AM By TRISTON SAPP LPN ; [facility] Multi Vitamin Daily Oral Tablet Provider: Diagnosis: Last Documented On 1 10:36AM By TRISTON SAPP LPN ; [facility] Current Medications (continue as prescribed) Mirena (52 MG) 20 MCG/DAY Intrauterine Intrauterine de vice 02/09/2023 Provider: Diagnosis: Last Documented On 05/25/2023 3:02PM By Machelle Augustine ; [facility] Past Medications on file Ibuprofen 800 MG Oral Tablet 02/09/2023 - 02/16/2023 Provider: JOSY ESCOBAR Diagnosis: Encounter for in itial prescription of other contraceptives One tablet three times a day TAKE DIRECTED W/FOOD Last Documented On 3 8:38AM By JOSY VALLE ; [facility] Sertraline HCl 100MG Oral Tablet 04/12/2018 - 04/28/2018 Provider: JOSY ESCOBAR Diagnosis: Major depressive disorder, recurrent, moderate One tablet daily Last Documented On 8 9:21AM By JOSY VALLE ; [facility] Sertraline HCl 50MG Oral Tablet 04/06/2018 - 04/13/2018 Provider: JOSY CHAKRABORTY Diagnosis: Major depressive disorder, recurrent, moderate 1 po q day......ed Last Documented On 8 6:29PM By MARIAH CODY ; [facility] Sertraline HCl 50MG Oral Tablet 11/21/2017 - 12/12/2017 Provider: JOSY CHAKRABORTY Diagnosis: Major depressive disorder, recurrent, moderate One tablet daily Last Documented On 8 4:09PM By JOSY VALLE ; [facility] Macrobid 100MG Oral Capsule 05/11/2017 - 05/18/2017 Pr ovider: JOSY CHAKRABORTY Diagnosis: Dysuria One tablet twice a day Last Documented On 7 3:20PM By JOSY VALLE ; [facility] Ferrous Gluconate 324 (37.5 Fe)MG Oral Tablet 04/28/2017 - 08/26/2017 Provider: JOSY CHAKRABORTY Diagnosis: Anemia complicat ing , third trimester One tablet twice a day Last Documented On 7 11:13AM By JOSY VALLE ; [facility] Plus 27-1MG Oral Tablet 11/24/2016 - 11/19/2017 Provider: JOSY CHAKRABORTY Diagnosis: Irregular menstr uation, unspecified 1 capsule daily Last Documented On 7 2:01PM By JOSY VALLE ; [facility] Terconazole 0.8 % Cream 07/08/2016 - 07/11/2016 Provid er: JOSY CHAKRABORTY Diagnosis: Acute vaginitis as directed 1 ildefonso in vagina at HS x 3 Last Documented On 6 2:30PM By JOSY VALLE ; [facility] Plus 27-1 MG Tablet 07/05/2016 - 06/30/2017 Provider: JOSY CHAKRABORTY Diagnosis: Encounter for ot h general cnsl and advice on procreation One tablet daily Last Documented On 6 4:08PM By JOSY VALLE ; [facility] Naproxen 500 MG Tablet 01/20/2016 - 01/27/2016 Provide r: JOSY CHAKRABORTY Diagnosis: Pelvic and perin eal pain One tablet twice a day ONE T AB TWICE A DAY WITH FOOD DON'T EXCEED 2 TABS IN 24 HOURS Last Documented On 6 4:17PM By JOSY VALLE ; [facility] Medications Administered Includes: Administered Medications from this encounter No Administered Medications Recorded Vital Signs Includes: Vital Signs from this encounter Vital Name 01/18/2021 10:31A Blood Pressure Standing (mmHg) 128/64 Temp-Oral (F) 98.2 Height (in) 63 Weight (lb) 142 Body Mass Index (kg/m2) 25.2 Body Surface Area (m2) 1.7 Last Documented: On 01/18/2021 10:33A M ; [facility] Results Includes: Results discussed during this encounter No Results Recorded For Specified Dates History of Present Illness Includes: History of Present Illness from this encounter HPI - Allergy list reviewed. Social History Description Last Updated Activities 01/18/2021 Last Documented On 11:03AM ; [facility] Alcohol use seldom 01/18/2021 Last Documented On 11:03AM ; [facility] Alcohol use: 2 drinks or less per day no ne 01/18/2021 Last Documented On 11:03AM ; [facility] Amount of sleep 01/18/2021 Last Documented On 11:03AM ; [facility] Education history 01/18/2021 Last Documented On 1 11:03AM ; [facility] Educational level 01/18/2021 Last Documented On 1 11:03AM ; [facility] Exercising regularly 01/18/2021 Last Documented On 1 11:03AM ; [facility] In monogamous relationship last coitus 1 week ago 01/18/2021 Last Documented On 11:03AM ; [facility] Job change works midnights [facility] 01/18/2021 Last Documented On 1 11:03AM ; [facility] Marital history Single 01/18/2021 Last Documented On 1 11:03AM ; [facility] Non-smoker 01/18/2021 Last Documented On 1 11:03AM ; [facility] Not using drugs 01/18/2021 Last Documented On 11:03AM ; [facility] Personal history 01/18/2021 Last Documented On 1 11:03AM ; [facility] Sexually active 01/18/2021 Last Documented On 1 11:03AM ; [facility] Smoking status : Never smoker 01/18/2021 Last Documented On 1 11:03AM ; [facility] Social history unchanged single parent n o assistance from FOB 01/18/2021 Last Documented On 1 11:03AM ; [facility] Current nonsmoker 01/18/2021 Last Documented On 11:03AM ; [facility] Procedures and Surgical History Includes: Procedures from this encounter Procedures Code Diagnosis Performing Provider Service L ocation Service Date education and instructions Last Documented On 1 10:42AM ; [facility] explanation of plan Last Documented On 1 10:42AM ; [facility] discharge medications reconciled with current wv dication list 1111F Last Documented On 1 10:35AM ; [facility] review of medications documented 1160F Last Documented On 10:35AM ; [facility] Discussed Contraception Last Documented On 1 10:42AM ; [facility] Urged Exercise and Diet , exercise at le ast 30 min three times per week Last Documented On 1 10:42AM ; [facility] Clinical summary provided to patient Last Documented On 1 10:42AM ; [facility] cervical Pap smear 24219 Last Documented On 1 10:42AM ; [facility] Medical History Includes: Medical History addressed during this encounter Description Last Updated Sexually active 01/11/2023 Last Documented On 1 10:31AM ; [facility] History of cervical Pap smear 10/21/2019 01/18/2021 Last Documented On 1 11:03AM ; [facility] Contraception: uses condoms 100% 021 Last Documented On 1 11:03AM ; [facility] Last pap smear date 10/21/2019 01/18/2021 Last Documented On 1 11:03AM ; [facility] LMP: 01/16/2021 01/18/2021 Last Documented On 1 11:03AM ; [facility] PRIMARY CARE PROVIDER : Dr Brownlee 0 Last Documented On 1 10:31AM ; [facility] Vaginal delivery x 2 10/21/2019 Last Documented On 1 10:31AM ; [facility] Para 2 04/12/2018 Last Documented On 1 10:31AM ; [facility] Result: normal 11/21/2017 Last Documented On 1 10:31AM ; [facility] Baby thriving STA Nicole Adame 39- 1/7wks #6 12oz 08/11/2017 Last Documented On 1 10:31AM ; [facility] Depression 06/09/2017 Last Documented On 1 10:31AM ; [facility] History of allergic rhinitis Seasonal Last Documented On 1 10:31AM ; [facility] History of depression 06/09/2017 Last Documented On 1 10:31AM ; [facility] History of Gardasil 06/09/2017 Last Documented On 1 10:31AM ; [facility] History of recurrent loss (gra vid) 06/09/2017 Last Documented On 1 10:31AM ; [facility] Not taking medication for depression Last Documented On 1 10:31AM ; [facility] Aborta 2 11/24/2016 Last Documented On 1 10:31AM ; [facility] 4 11/24/2016 Last Documented On 1 10:31AM ; [facility] Family History Includes: Family History addressed during this encounter Description Last Updated Family history of diabetes mellitus PGGM 10/21/2019 Last Documented On 1 10:31AM ; [facility] Paternal grandmother's histo ry of malignant female breast neoplasm Pat, GMA 01/20/2016 Last Documented On 1 10:31AM ; [facility] Review of Systems Includes: Review of Systems from this encounter Systemic: Feeling fine and not tiring easily. No fever, no chills, no unusual bleeding, and no recent weight change. Head: No headache. Neck: No neck pain and no swollen glands in the neck. Eyes: No vision problems. Breasts: No breast symptoms, no breast lump, no pain in breast, and patient performs self breast exams. Cardiovascular: No chest pain or discomfort, no palpitations, no intermittent leg claudication, and no varicosities. Pulmonary: No pulmonary symptoms and no dyspnea. Gastrointestinal: No heartburn and no indigestion. No nausea, no vomiting, no abdominal pain, and no melena. No diarrhea and no constipation. Genitourinary: No change in urinary frequency and no incomplete emptying of bladder. No urinary loss of control and no dysuria. No genital lesion, no pain during intercourse, and no vaginal dryness. Normal menses and no nonmenstrual bleeding. No vaginal discharge. Endocrine: No polydipsia, no hot flashes, and libido has not changed. Hematologic: No blood clotting problems. Musculoskeletal: No back pain and no muscle aches. Pain localized to one or more joints dull pain at site of prvious epidural. Neurological: No dizziness. Psychological: No anxiety, no depression, and a desire to continue living. Skin: No pruritus. No skin lesions and no rash. Allergic and Immunologic: No hay fever. Mental Status Includes: Mental Status from this encounter Description Oriented to time, place, and person No anxiety A desire to continue living Functional Status Includes: Functional Status from this encounter No Functional Status Recorded Physical Exam Includes: Physical Exam from this encounter Allergies Includes: Active Allergies Substance Type Reaction Onset Date Resolved Date Statu s SEASONAL Allergy 01/20/2016 Active Last Documented On 3 3:01PM ; [facility] Encounters Encounter Provider Location Date Check-In Time Check-Out Time Diagnosis WELL WOMAN - ESTABLISHED PT JOSY LAWSON RN DIANE [facility] 01/19/20 21 10:27AM 10:59AM Screen Malignant Neoplasm Cervix,Normal Female Exam Insurance Includes: Active Insurance Policies Plan Name Member ID Group # Subscriber Relationship Effect chris Dates 1 - [facility] [id number] [employer] Self Clinical Notes Includes: Clinical Notes from this encounter No Clinical Notes Recorded
--- OUTSIDE RECORDS SUMMARY | 2024-10-07 08:36 | XMS_ITS | Clinical Summary ---
Author Organization [facility] Address [address] [place] [address] Phone Care Team Providers Care Mechanical Piping Designer Name Role Phone Catina Ram MD Unavailable [phone] Allergies Active Allergy Reactions Criticality Noted Date Comments Penicillins Hives,Rash,Swelling High 12/11/2015 Medications No known medications Active Problems Problem Noted Date Diagnosed Date Acute midline low back pain without sciatica 05/2019 Moderate episode of recurrent major depressive d isorder 01/14/2019 Anxiety 03/22/2016 Physical exam, routine (Adult) 03/22/2016 Resolved Problems Problem Noted Date Diagnosed Date Resolved Date Pyelonephritis 07/03/2017 01/14/2019 Sepsis 07/03/2017 01/14/2019 Hydronephrosis 07/03/2017 01/14/2019 Hydroureter 07/03/2017 01/14/2019 Transaminitis 07/03/2017 01/14/2019 Hyperglycemia 07/03/2017 01/14/2019 Anemia 07/03/2017 01/14/2019 Immunizations Immunization Administration Dates Next Due DTAP VACCINE 09/20/1992 DTP Vaccine 05/08/1995 DTP-Hib 1991,1991,1991 Hepatitis B Vaccine,unspecif ied Formulation 03/26/1998,11/21/1997,10/22/1997 Hib Vaccine,unspecified Formulation 06/19/1996 Inactivated Polio Vaccine 09/20/1992,1991 Influenza Vaccine 08/05/2015,08/05/2015 Influenza Vaccine greater than 3 yrs 06/14/2011 Influenza Vaccine, Quadrivalent, PF 03/31/2022,0 04/15/2021,07/01/2017 Influenza Vaccine,unspecifie d Formulation 05/21/2003 Influenza, Seasonal, Injecta ble, Undefined 06/05/2013 MMR Vaccine 04/18/1995,06/19/1992 OPV 05/09/1995,09/18/1992,1991 TD VACCINE 05/21/2003 TDAP Vaccine 07/01/2017, 6,06/05/2013,2004 Varicella Vaccine Live 01/12/2016 Family History Medical History Relation Name Comments Congestive Heart Failure Father Diabetes Father High Cholesterol Father Hypertension Father Hypertension Mother Relation Name Status Comments Father Alive Mother Alive Social History Tobacco Use Types Packs/Day Years Used Date Smoking Tobacco: Never Smokeless Tobacco: Never Tobacco Cessation:Counseling Given: Yes Alcohol Use Standard Drinks/Week Comments No 0 [...] on file Sexual Orientation Not on file Last Filed Vital Signs Vital Sign Reading Time Taken Comments Blood Pressure 129/79 01/28/2024 7:30 PM CDT Pulse 79 01/28/2024 7:30 PM CDT Temperature 36.8 C (98.2 F) 01/28/2024 5:25 PM CDT Respiratory Rate 16 01/28/2024 7:30 PM CDT Oxygen Saturation 100% 01/28/2024 7:30 PM CDT Inhaled Oxygen Concentration - - Weight 76.2 kg (168 lb) 01/28/2024 5:25 PM CDT Height 160 cm (5' 3 ) 01/28/2024 5:25 PM CDT Body Mass Index 29.76 01/28/2024 5:25 PM CDT Plan of Treatment Health Maintenance Due Date Last Done Comments Hepatitis C Virus (HCV) Screening 1991 HPV/Cotest 2021 Cervical Cancer Screening (CCS) 10/20/2022 Pap Smear 10/20/2022 10/21/2019, 08/11/2017 Influenza Immunization (#1) 2024 09/0 02/2022, 04/15/2021, 07/01/2017, Additional history exists SARS-COV-2 Immunization ( - season) 2024 02/10/2021 DTaP/Tdap/Td Immunization (10 - Td or Tdap) 07/01/2027 07/01/2017, 01/12/2016, 06/05/2013, Additional history exists Td Immunization Every 10 Years (Adults With 1 Tdap) 07/01/2027 07/01/2017, 01/12/2016, 06/05/2013, Additional history exists Respiratory Syncytial Virus (RSV) Immunization (Adult) (1 - 1-dose 75+ series) 2066 Hepatitis B Immunization Completed 998, 11/21/1997, 10/22/1997 Meningococcal Immunization (ACWY) Aged Out No longer eligible based on patient's age to complete this topic Pneumococcal Immunization Combined Aged Out No longer eligible based on patient's age to complete this topic Rotavirus Immunization Aged Out No lo nger eligible based on patient's age to complete this topic Procedures Procedure Name Priority Date/Time Associated Diagnosis Comments PATHOLOGY CYTOLOGY PRECISION MACHINING INSTRUCTOR Routine 08/11/2017 from Last 3 Months or Most Recently Relevant to Health Maintenance Results * PATHOLOGY CYTOLOGY PRECISION MACHINING INSTRUCTOR (08/11/2017) Specimen of unknown material (specimen) Walter Feliciano MD PATHOLOGY/CYTOLOGY ORDERABLES Final Result from Last 3 Months or Most Recently Relevant to Health Maintenance Insurance MEDICAID [employer] Advance Directives * Full Code (Latest Code Status on File) Date Activated Date Inactivated Comments 07/03/2017 11:44 AM 07/06/2017 5:21 PM CPR-Full Treatment: FULL ARREST: Attempt Resuscitation/CPR wit intubation and mechanical ventilation. PRE-ARREST: Use entire range of life support measures to stabilize the patient. * Full Code Date Activated Date Inactivated Comments 06/29/2017 2:54 AM 07/01/2017 6:49 PM CPR-Full Kevin atment: FULL ARREST: Attempt Resuscitation/CPR wit intubation and mechanical ventilation. PRE-ARREST: Use entire range of life support measures to stabilize the patient. * Full Code Date Activated Date Inactivated Comments 06/22/2017 9:24 AM 06/22/2017 1:33 PM CPR-Full T reatment: FULL ARREST: Attempt Resuscitation/CPR wit intubation and mechanical ventilation. PRE-ARREST: Use entire range of life support measures to stabilize the patient. * Full Code Date Activated Date Inactivated Comments 06/19/2017 9:13 AM 06/19/2017 1:11 PM CPR-Full T reatment: FULL ARREST: Attempt Resuscitation/CPR wit intubation and mechanical ventilation. PRE-ARREST: Use entire range of life support measures to stabilize the patient. * Full Code Date Activated Date Inactivated Comments 06/10/2017 11:06 AM 06/10/2017 2:55 PM CPR-Full Treatment: FULL ARREST: Attempt Resuscitation/CPR wit intubation and mechanical ventilation. PRE-ARREST: Use entire range of life support measures to stabilize the patient. Care Teams Mechanical Piping Designer Relationship Specialty Start Date End Date Catina Ram MD Consulting Physician Obstetrics & Gynecology 05/16/16
--- OUTSIDE RECORDS SUMMARY | 2024-10-07 08:36 | XMS_ITS | Data Portability ---
Author Organization [facility] [employer], Main Office Address [address] [place] [address] Care Team Providers Care Cafe Lead Name Role Phone [facility] Referring Provider SHAAN VICENTE Primary Care Provider Assessment Encounter Date Assessment Date Assessment LastModified by Organization Details LastModified Time 07/11/2024 07/11/2024 This note is dictated and transcribed by [employer]. Director variances may occur. Despite proofreading, typographical errors may occur. Occasional wrong-word or 'xjtrw-p-winu' substitutions may have occurred due to the inherent limitations of voice recording. Read the chart carefully and recognize, using context, where substitutions have occurred. Not available 07/11/2024 10:07:57 08/08/2024 08/08/2024 This note is dictated and transcribed by [employer]. Director variances may occur. Despite proofreading, typographical errors may occur. Occasional wrong-word or 'ykwav-y-spac' substitutions may have occurred due to the inherent limitations of voice recording. Read the chart carefully and recognize, using context, where substitutions have occurred. Not available 08/08/2024 10:04:18 Plan of Treatment Reminders Order Date Submit Date Provider Last Modified By Organization Details Last Modified Time Details Appointments None record ed. Lab None record ed. Referral None record ed. Procedures None record ed. Surgeries None record ed. Imaging XR, ankle, 3 or more view 025 08/08/19 25 [email or web address] [facility] [place], [address] [place] [address], [address], [place], [address], 5 10:05:01 Medication Orders None record ed. Patient TargetsNo targets recorded. Patient InstructionsNo instructions recorded. Reason for Referral None Reported. Results Created Date Observation Date Name Description Value Unit Range Abnormal Flag Note LastModifiedBy Organization Detail LastModifiedTime 08/08/19 25 XR, ankle , 3 or more view No observ ation record ed. [email or web address] [facility] [address], [address], [place], [address], 08/08/2024 10:05:01 Result Notes None recorded. Problems Name Problem SNOMED Code Status Onset Date Resolution Date Notes Provider Name and Address Organization Details Recorded Time Sprain of right ankle 398430849342118 05 Active 2023 Venkatesh Dunn DPM [address] [facility], [address], [place], [address], [employer] 10:08:06 Fracture of distal end of fibula 882842593 Active 2023 Venkatesh Dunn DPM [address], [address], [place], [address], [employer] 10:09:22 Problem Notes None recorded. Procedures Surgical History None recorded. Imaging Results Imaging Date Name Status LastModified by Organiz ation Details LastModified Time 08/08/2024 XR, ankle, 3 or more view completed [email or web address] [facility] [place] [id number] [facility], [address], [place], [address], 08/08/2024 10:05:01 Procedure Notes None recorded. Medical Equipment None Reported. Allergies Allergen ID Allergen Name Allergen Category Reaction Reaction Severity Criticality Documentation Date Start Date Code Code System Note Provider Name and Address Organization Details Recorded Time 55025 Product containin g penicilli n (product) medicatio n Not available Not available Not available 07/11/2024 38449 8001 SNOMED Regi sapp, [employer] 4 10:48:43 Medications Name Sig Start Date Stop Date Status Note LastModified by Organization Details LastModified Time azithromyci n 250 mg tablet TAKE 2 TABLETS BY MOUTH TODAY, THEN TAKE 1 TABLET DAILY FOR 4 DAYS DIRECTED 07/11 completed Not Available Not Available Not Available ofloxacin 0.3 % eye drops PUT 2 DROPS INTO AFFECTED EYE(S) EVERY 6HOURS FOR 5 DAYS 07/11 completed Not Available Not Available Not Available naltrexone 50 mg tablet TAKE 1 TABLET BY MOUTH EVERY DAY IN THE MORNING 07/11 completed Not Available Not Available Not Available meloxicam 7.5 mg tablet active Not Available Not Available Not Available hydrocortis one 1 % topical cream with perineal applicator 1 APPLIC TOPICALLY THREE TIMES A DAY NEEDED FOR ITCHING 07/11 completed Not Available Not Available Not Available bupropion HCl XL 150 mg 24 hr tablet, extended release TAKE 1 TABLET BY MOUTH EVERY DAY IN THE MORNING 07/11 completed Not Available Not Available Not Available nitrofurant oin monohydrate /macrocryst als 100 mg capsule TAKE 1 CAPSULE BY MOUTH TWICE A DAY FOR 7 DAYS 07/11 completed Not Available Not Available Not Available Vitals Date Recorded Heart rate Respiratory rate Oxygen saturation Oxygen saturation in Arterial blood by Pulse oximetry Systolic blood pressure Diastolic blood pressure Provider Name and Address Organization Details Last Updated DateTime 4 114 /min 14 /min 99 % 99 % 127 mm[Hg] 70 mm[Hg] Crissy Harrell [employer] 4 09:29:55 Date Recorded Body height Body mass index (BMI) Body weight Provider Name and Address Organization Details Last Updated DateTime 07/11/2024 160.02 cm 31.2 kg/m2 50858.26 g Regi Antunez [employer] 07/11/2024 10:48:27 Date Recorded Body height Body mass index (BMI) Body weight Heart rate Respiratory rate Oxygen saturation Oxygen saturation in Arterial blood by Pulse oximetry Systolic blood pressure Diastolic blood pressure Provider Name and Address Organization Details Last Updated DateTime 5 160.02 cm 31.2 kg/m2 19253.2 6 g 82 /min 14 /min 99 % 99 % 109 mm[Hg] 55 mm[Hg] Crissy Harrell [employer] 09:45:25 Social History Question Answer Notes LastModified by Organizat ion Details LastModified Time Tobacco Smoking Status Never Smoker [facility] 07/11/2024 10:49:51 What Is Your Level Of Alcohol Consumption? None [email or web address] Information not available 07/11/2024 Sex: Unknown Functional Status None recorded. Mental Status None recorded. Family History Nothing Reported. Medical History No medical history recorded. Gynecological HistoryNo gynecological history recorded. Obstetrics History GPAL:G 0 P 0 0 0 0 Past Encounters Encounter ID Performer Location Encounter Start Date Encounter Closed Date Diagnosis/Indication Diagnosis SNOMED-CT Code Diagnosis ICD10 Code Diagnosis Note [id number] Venkaetsh Dunn DPM [facility] Podiatry [address], [address] [address] 07/11/2024 09:14:12 07/22/2024 09:29:12 Sprain of right ankle [id number] 7083487 S93.401A x-rays reviewed- chip fracture distal fibulacont inue cam boot- daily when walking for 4-5 weeksrice therapyfol low-up 4-5 weeks Fracture o f distal end of fibula 308895171 S82.891A x-rays reviewed- stable chip fracture distal fibula [id number] Venkatesh Dunn DPM [facility] [address], [address] [address] 08/08/2024 09:17:48 08/19/2024 10:48:38 Sprain of right ankle 3930537754 4171768 S93.401A resolvedco ntinue supportive shoe gearfollow -up as needed Fracture o f distal end of fibula 451593137 S82.891A x-rays reviewed- stable chip fracture distal fibula- healedas above Health Concerns Section Related Observation LastModified by Organization Detai ls LastModified Time None Recorded Concern Status LastModified by Organization Details LastModified Time None Recorded Advance Directives Directive None Recorded Payers Encounter Date Sequence Insurance Name Policy Number Policy Walls Covered Member ID Walls Member ID Guarantor Name 07/11/2024 1 [employer] MALIKA Cespedes [id number] Ken Cespedes 08/08/2024 1 [facility] [employer] Cespedes [id number] Ken Cespedes Notes Date Note Type Note Provider Name and Address Organization Details Recorded Time 07/11/2024 text/html . Patient is a 34-year-old female she presents the office with complaints of an injury to the right ankle she states she was at a trampoline park a few days ago she was jumping and sprained her ankle. Patient had x-rays which shows mild chip fracture to the lateral distal fibula. Patient has bruising and swelling about the lateral ankle she was seen in the emergency room she was given a cam boot she has been icing and been minimal weight-bearing. Patient states she is no longer in any discomfort. Patient denies any other complaints.injury date occurred on 07/06/2024 Venkatesh Dunn DPM [address] [facility], [facility] [employer], [place], [address], [employer] 07/11/2024 11:18:50 08/08/2024 text/html . Patient is a 34-year-old female who returns the office for follow-up on ankle sprain and chip fracture. Patient is in normal shoe gear she has continued walking and working she states she is not having any discomfort at all with weight-bearing she denies any giving out of the ankle. Patient denies any other complaints. Venkatesh Dunn DPM [address] [employer], [facility] [address], [place], [address], [employer] 08/08/2024 10:05:12 OBGyn Episode No OBEpisode recorded.
--- OUTSIDE RECORDS SUMMARY | 2024-10-07 08:36 | XMS_ITS | Referral Summary ---
Author Organization [facility] Address [address] [place] [address] Care Team Providers Care Power Plant Operator Apprentice Name Role Phone Andrew Brownlee MD Primary Care Provider Allergies Active Allergy Reactions Criticality Noted Date [...] on file Legal Sex Female 5:50 PM [employer] Gender Identity Not on file Sexual Orientation [...] 01/14/2023 4:16 PM CDT Plan of Treatment Not on file Insurance [facility] Care Teams Power Plant Operator Apprentice Relationship Specialty Start Date End Date Andrew Brownlee MD [address] [address] PCP - General Family Medicine 08/31/22
--- OUTSIDE RECORDS SUMMARY | 2024-10-07 08:37 | XMS_ITS | Continuity of Care Document ---
Author Organization [facility] Address [address] [address] [place] [address] Phone Care Team Providers Care Portable Power Tool Repairer Name Role Phone Alireza Fry MD Unavailable Unavailable Allergies, Adverse Reactions, Alerts Substance Reaction Status Criticality Penicillins Active No Information Medications Medication Instructions Dosage Effective Dates (start - stop) Status Comments Xanax 1 mg tablet take 1 tablet by oral route 2 times every day as needed 1 MG - Active PRN for anxi ety, avoid driving or oeprate machiens Celexa 20 mg tablet take 1 tablet by oral route every day 20 MG - Active Procedures Procedure Date OFFICE/OUTPATIENT VISIT, EST OFFICE/OUTPATIENT VISIT, EST OFFICE/OUTPATIENT VISIT, EST PREV VISIT, NEW, AGE 18-39 OFFICE/OUTPATIENT VISIT, NEW Advance Directives Directive Yes / No Effective Date File Name No Information Encounters Encounter Description Practice Location Reason(s) For Visit Diagnoses Date Provider Providers Copied on Encounter [facility], [address], [id number], tel:[phone] [facility] No Information 6 Ang Lay. [address], [place], [place], [address] , [place]. [phone] [facility], [address], [place], [place], [address], tel:[phone] [facility] No Information 6 Ang Lay. [address], [place], [place], [address] , [place]. tel:[phone] OFFICE/OUTPA TIENT VISIT, [facility], [address], [place], [place], [address], [place] tel:[phone] [facility] Anxiety (chief complaint) anxiety1 (chief complaint) anemia1 (chief complaint) Generalized anxiety disorderAnemia 6 Ang Lay. [address], [place], [place], [address] , [place]. tel:[phone] Referring Provider: Minnie Pandey [address], [place], [place], [address]. tel:[phone] OFFICE/OUTPA TIENT VISIT, [facility], [address], [place], [place], [address], [place] tel:[phone] [facility] anemia1 (chief complaint) anxiety1 (chief complaint) AnemiaGeneralized anxiety disorder 6 Ang Lay. [address], [place], [place], [address] , [place]. tel:[phone] Referring Provider: Minnie [address], [place], [place], [address]. tel:[phone] OFFICE/OUTPA TIENT VISIT, [facility], [address], [place], [place], [address], [place] tel:[phone] [facility] anxiety1 (chief complaint) nevus (chief complaint) Generalized anxiety disorderNevus, non-neoplastic 6 Ang Lay. [address], [place], [place], [address] , [place]. tel:[phone] Referring Provider: Minnie Pandey [address], [place], [place], [address]. tel:[phone] PREV VISIT, NEW, AGE 18-39 [facility], [address], [place], [place], [address], [place] tel:[phone] [facility] PHysical (chief complaint) Encounter for general adult medical exam w abnormal findingsGeneralized anxiety disorderInsomnia, unspecified 201 6 Ang Lay. [address] [facility] [address], [place], [place], [address] , . tel:[phone] Referring Provider: Minnie Pandey [facility] [address], [place], [place], [address]. tel:[phone] Family History Family Member Type Diagnosis Age At Onset Sister Problem (finding) Depression Mother Problem (finding) Alive and well Father Problem (finding) Coronary artery disease Mother Problem (finding) Depression Sister Problem (finding) Alive and well Payers Payer name Insurance type Covered democrat ID Authoriza tion(s) No Information Social History Type Description Quantity Date Captured Comments Alcohol Use Details Unknown Caffeine Use Details Unknown Tobacco Use Status Smoking Status No Information Sex Female Chief Complaint And Reason For Visit No Information Plan Of Treatment Date Type Action Status Referral Ordered: Julio Cesar Harley (related to Encounter for general adult medical exam w abnormal findings) ordered Referral Referred To: Julio Cesar Harley [address] [place], [phone] Ordered: Referrals: Julio Cesar Harley. Evaluate and treat ordered History Of Present Illness Encounter Date Complaint History Of Prese nt Illness anemia1 P:t has not done lab yet. Pt denies any GI bleeding anxiety1 Pt has chronic a nxiety and depression. Pt doing ok with celexa and xanax. pt denies any suicidal or homcidial thought Pt doing ok with current meds. Pt denies any crying spells Anxiety anxiety1 Pt has chronic a nxiety and depression .Pt takes celexa and xanax Pt doing better Pt denies any suicidal or homicidal thought. Pt feels more relaxed and is able to deal with things better. anemia1 Pt is mildly ane jacqueline. Pt denies any GI blood loss. Pt has regular period and she bleeds 4-5 days and is not heavy Pt has IUD. Pt denies any dizziness nevus Pt has birthmark nevus on front of neck. Pt made appointment to see plastic surgeon in November. Pt denies any size change anxiety1 Pt has chronic a nxiety and depression. Pt takes celexa and xanax and doing better. pt states that 0.5 mg xanax does not help and she has to take two of it to work. Pt states that she overall feels much better Pt denies any suicidal or homicdial thought PHysical 25 yo female nee ds annual physical. Pt states that she has not been feeling like herself. Pt has been feeling depressed and anxous all the time. Pt keeps hyperventilating. Pt states that she did not have great childhood growing up and she is having interperonsonal relationship at work. Pt feels poor mood and also anxious. Pt has crying spells. Pt denies any suicidal or homicdial thought. Pt denies any other complaints. Pt took xanax long time ago which helped. Pt has difficulty falling asleep also due to anxiety and depression. Pt has a mole on chest area causing irritation sometimes. No change in size Instructions Date Instruction Additional Infor mation No Information Assessments Type Assessment Date No Information
--- OUTSIDE RECORDS SUMMARY | 2024-10-07 08:37 | XMS_ITS | Clinical Summary ---
Author Organization [facility] Address [address] [place] [address] Phone Care Team Providers [employer] Sales Executive Name Role Phone TAMMY LEI, MICHELLE Dorman Unavailable [phone] Reason for Visit and Chief Complaint The Chief Complaint is: IUD check Problems Includes: Problems addressed during this encounter and other active Problems Current Visit Onset Date Resolved Date Provider Conditio n Status History of Allergic Rhinitis 12/23/2016 Unknown MICHELLE MUNOZ MD Resolved Last Documented On 11/09/2017 9:46AM ; [facility] Note: was Closed. History of Depression 12/23/2016 Unknown MICHELLE MUNOZ MD Resolved Last Documented On 11/09/2017 9:46AM ; [facility] Note: was Closed. 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 Past Visits Onset Date Resolved Date Provider Condition Status Nephrolithiasis 06/27/2018 JOSY LAWSON RN Vasquez P BC Active Last Documented On 8 10:06AM ; [facility] Depression 11/24/2016 JOSY LAWSON RN DIANE BC Active Last Documented On 7 2:39PM ; [facility] Note: Unchanged Type AB blood, Rh positive 07/12/2016 JOSY SEXTON RN DIANE BC Active Last Documented On 6 2:16PM ; [facility] Plan of Treatment No Plan of Treatment Recorded Assessments Includes: Assessments from this encounter Findings - [Z30.09 - Encounter for other general counseling and advice on contraception] Contraceptive management - Last Documented On 05/25/2023 3:11PM ; [facility] Medical Equipment - Implanted Devices Includes: Current Devices No Medical Equipment Recorded Medications Includes: Medications discussed during this encounter and other current Medications Current Medications (continue as prescribed) Mirena (52 MG) 20 MCG/DAY Intrauterine Intrauterine de vice 02/09/2023 Provider: Diagnosis: Last Documented On 05/25/2023 3:02PM By Machelle Augustine ; [facility] Past Medications on file Ibuprofen 800 MG Oral Tablet 02/09/2023 - 02/16/2023 Provider: JOSY LAWSON RN DIANE Diagnosis: Encounter for in itial prescription of other contraceptives One tablet three times a day TAKE DIRECTED W/FOOD Last Documented On 3 8:38AM By JOSY ELMORE ; [facility] Sertraline HCl 100MG Oral Tablet 04/12/2018 - 04/28/2018 Provider: JOSY ESCOBAR Diagnosis: Major depressive disorder, recurrent, moderate One tablet daily Last Documented On 8 9:21AM By JOSY ELMORE ; [facility] Sertraline HCl 50MG Oral Tablet 04/06/2018 - 04/13/2018 Provider: JOSY ESCOBAR Diagnosis: Major depressive disorder, recurrent, moderate 1 po q day......ed Last Documented On 8 6:29PM By MARIAH CODY ; [facility] Sertraline HCl 50MG Oral Tablet 11/21/2017 - 12/12/2017 Provider: JOSY LAWSON RN DIANE Diagnosis: Major depressive disorder, recurrent, moderate One tablet daily Last Documented On 8 4:09PM By JOSY VALLE ; [facility] Macrobid 100MG Oral Capsule 05/11/2017 - 05/18/2017 Pr ovider: JOSY LAWSON RN DIANE Diagnosis: Dysuria One tablet twice a day Last Documented On 7 3:20PM By JOSY VALLE ; [facility] Ferrous Gluconate 324 (37.5 Fe)MG Oral Tablet 04/28/2017 - 08/26/2017 Provider: JOSY CHAKRABORTY Diagnosis: Anemia complicat ing , third trimester One tablet twice a day Last Documented On 7 11:13AM By JOSY VALLE ; [facility] Plus 27-1MG Oral Tablet 11/24/2016 - 11/19/2017 Provider: JOSY CHAKRABORTY Diagnosis: Irregular menstr uation, unspecified 1 capsule daily Last Documented On 7 2:01PM By JOSY VALLE ; [facility] Terconazole 0.8 % Cream 07/08/2016 - 07/11/2016 Provid er: JOSY CHAKRABORTY Diagnosis: Acute vaginitis as directed 1 ildefonso in vagina at HS x 3 Last Documented On 6 2:30PM By JOSY VALLE ; [facility] Plus 27-1 MG Tablet 07/05/2016 - 06/30/2017 Provider: JOSY CHAKRABORTY Diagnosis: Encounter for ot h general cnsl and advice on procreation One tablet daily Last Documented On 6 4:08PM By JOSY VALLE ; [facility] Naproxen 500 MG Tablet 01/20/2016 - 01/27/2016 Provide r: JOSY CHAKRABORTY Diagnosis: Pelvic and perin eal pain One tablet twice a day ONE T AB TWICE A DAY WITH FOOD DON'T EXCEED 2 TABS IN 24 HOURS Last Documented On 6 4:17PM By JOSY VALLE ; [facility] Medications Administered Includes: Administered Medications from this encounter No Administered Medications Recorded Vital Signs Includes: Vital Signs from this encounter Vital Name 05/25/2023 02:56P Blood Pressure Sitting L 112/74 BP Cuff Size Regular Height (in) 63 Weight (lb) 142 Body Mass Index 25.2 Body Surface Area 1.7 Last Documented: On 05/25/2023 3:03PM ; [facility] Results Includes: Results discussed during this encounter No Results Recorded For Specified Dates History of Present Illness Includes: History of Present Illness from this encounter HPI - Allergy list reviewed - Medication list reviewed - No unusual bleeding - No pelvic pain - No vaginal discharge Social History No Social History Recorded - Smoking Status Unknown Procedures and Surgical History Includes: Procedures from this encounter Procedures Code Diagnosis Performing Provider Service L ocation Service Date follow-up visit for annual exam Last Documented On 3 3:11PM ; [facility] Patient reassured IUD in cor rect position and she may rely on it for contraception Last Documented On 3 3:11PM ; [facility] Surgical History Last Updated Surgical / procedural history Gel Breast Implants-04/202201/11/2023 Last Documented On 3 2:56PM ; [facility] Medical History Includes: Medical History addressed during this encounter Description Last Updated Contraception: Mirena 05/25/2023 Last Documented On 3 3:11PM ; [facility] Last pap smear date 12/202205/25/2023 Last Documented On 3 3:11PM ; [facility] LMP: 05/20/2023 denies any unprotected 1 07/25/2022 Last Documented On 3 3:11PM ; [facility] Sexually active last unprotected about a month ago 01/11/2023 Last Documented On 3 2:56PM ; [facility] History of cervical Pap smear 12/2020 Last Documented On 3 2:56PM ; [facility] History of Pap smear done 12/2020 023 Last Documented On 3 2:56PM ; [facility] PRIMARY CARE PROVIDER : Dr Brownlee 0 Last Documented On 3 2:56PM ; [facility] Sexually active with 3 partners in the l ast year 10/21/2019 Last Documented On 3 2:56PM ; [facility] Vaginal delivery x 2 10/21/2019 Last Documented On 3 2:56PM ; [facility] Para 2 04/12/2018 Last Documented On 3 2:56PM ; [facility] Result: normal 11/21/2017 Last Documented On 3 2:56PM ; [facility] is breast-feeding and plans on breast feeding x 6 months. Supplemenets with formula about 1/2 of the time 08/11/2017 Last Documented On 3 2:56PM ; [facility] Baby thriving KATHI Adame 39- 1/7wks #6 12oz 08/11/2017 Last Documented On 3 2:56PM ; [facility] Depression 06/09/2017 Last Documented On 3 2:56PM ; [facility] History of allergic rhinitis Seasonal Last Documented On 3 2:56PM ; [facility] History of depression 06/09/2017 Last Documented On 3 2:56PM ; [facility] History of Gardasil 06/09/2017 Last Documented On 3 2:56PM ; [facility] History of recurrent loss (gra vid) 06/09/2017 Last Documented On 3 2:56PM ; [facility] Not taking medication for depression Last Documented On 3 2:56PM ; [facility] Aborta 2 11/24/2016 Last Documented On 3 2:56PM ; [facility] 4 11/24/2016 Last Documented On 3 2:56PM ; [facility] Family History Includes: Family History addressed during this encounter Description Last Updated Parkinsons-MGM 01/11/2023 Last Documented On 3 2:56PM ; [facility] Family history of malignant female breas t neoplasm PGM 01/11/2023 Last Documented On 3 2:56PM ; [facility] Family history of diabetes mellitus PG 10/21/2019 Last Documented On 3 2:56PM ; [facility] Paternal grandmother's histo ry of malignant female breast neoplasm Pat, GMA 01/20/2016 Last Documented On 3 2:56PM ; [facility] Review of Systems Includes: Review of Systems from this encounter No Review of Systems Recorded Mental Status Includes: Mental Status from this encounter No Mental Status Recorded Functional Status Includes: Functional Status from this encounter No Functional Status Recorded Physical Exam Includes: Physical Exam from this encounter Allergies Includes: Active Allergies Substance Type Reaction Onset Date Resolved Date Statu s SEASONAL Allergy 01/20/2016 Active Last Documented On 3 3:01PM ; [facility] Encounters Encounter Provider Location Date Check-In Time Check-Out Time Diagnosis FOLLOW UP JOSY LAWSON RN DIANE [facility] 05/25/20 23 2:55PM 3:12PM Contraceptive Management Insurance Includes: Active Insurance Policies Plan Name Member ID Group # Subscriber Relationship Effect chris Dates 1 - [facility] [id number] BASILIAELVA Elliott AGUILERAVERO Self Clinical Notes Includes: Clinical Notes from this encounter * Progress note Date Encounter Last Documented by 05/25/2023 FOLLOW UP Last documented on 05/25/2023; 3:11 PM, JOSY LAWSON RN DIANE ; [facility] Active Problems & Conditions - F32.9 - Depression - Nephrolithiasis - Z80.3 - Paternal Grandmother's History of Breast Neoplasm Malignant Female - Pat, GMA - Z67.30 - Type AB blood, Rh positive Chief Complaint The Chief Complaint is: IUD check. History of Present Illness - Allergy list reviewed - Medication list reviewed - No unusual bleeding - No pelvic pain - No vaginal discharge Current Medication - Mirena (52 MG) 20 MCG/DAY Intrauterine Intrauterine device 0 days, 0 refills Past Medical/Surgical History Other: Primary Care Provider: Dr Brownlee Reported: LMP: 05/20/2023 denies any unprotected, Last pap smear date 12/2022 result: normal, and Contraception: Mirena. Medical: Depression. Surgical / Procedural: Surgical / procedural history Gel Breast Implants- 04/2022. Medications: Not taking medication for depression. Immunization History: History of Gardasil. Dietary: is breast-feeding and plans on breast feeding x 6 months. Supplemenets with formula about 1/2 of the time. : Baby thriving STA Nicole Adame 39- 1/7wks #6 12oz, 4, para 2, aborta 2, and history of the : vaginal delivery x 2. Sexual: Sexually active last unprotected about a month ago and with 3 partners in the last year. Other: Cervical Pap smear 12/2020 Diagnoses: Allergic rhinitis Seasonal. Recurrent loss (gravid). Depression Procedural: - Pap smear done 12/2020 Allergies - SEASONAL Family History Parkinsons-MGM Diabetes mellitus PGGM Malignant female breast neoplasm PGM Paternal grandmother's: Malignant female breast neoplasm Pat, GMA Physical Findings - Vitals taken 05/25/2023 02:56 pm BP-Sitting L 112/74 mmHg BP Cuff Size Regular Height 63 in Weight 142 lbs Body Mass Index 25.2 kg/m2 Body Surface Area 1.7 m2 General Appearance: - In no acute distress. Pelvic: Cervix: - Normal IUD easily visible. - IUD string was visualized. Uterus: - IUD was easily palpable. - Not tender. Assessment - [Z30.09 - Encounter for other general counseling and advice on contraception] Contraceptive management Therapy - Patient reassured IUD in correct position and she may rely on it for contraception. - Follow-up visit for annual exam. Plan StartCited - Other PHY ORDER/COMMENT annual after 01/12/24 thanks EndCited Health Reminders - Assess BMI satisfied 05/25/2023.
--- OUTSIDE RECORDS SUMMARY | 2024-10-07 08:37 | XMS_ITS | Clinical Summary ---
Author Organization [facility] Address [address] [place] [address] Phone Care Team Providers Care Chief Deputy Sheriff Name Role Phone TAMMY LEI, MICHELLE Dorman Unavailable [phone] Reason for Visit and Chief Complaint gynecologic annual exam - The Chief Complaint is: WWE. Pt would like a Mirberny Problems Includes: Problems addressed during this encounter and other active Problems Current Visit Onset Date Resolved Date Provider Conditio n Status History of Allergic Rhinitis 12/23/2016 Unknown MICHELLE MUNOZ MD Resolved Last Documented On 11/09/2017 9:46AM ; [facility] Note: was Closed. History of Depression 12/23/2016 Unknown MICHELLE MUNOZ MD Resolved Last Documented On 11/09/2017 9:46AM ; [facility] Note: was Closed. History of Recurrent Loss (Gravid) 12/23/2016 Unknown MICHELLE MUNOZ MD Resolved Last Documented On 11/09/2017 9:46AM ; [facility] Note: was Closed. Depression 11/24/2016 JOSY Ovalle DIANE BC Active Last Documented On 11/24/2016 2:39PM ; [facility] Note: Unchanged Past Visits Onset Date Resolved Date Provider Condition Status Nephrolithiasis 06/27/2018 JOSY BARRAGAN P BC Active Last Documented On 8 10:06AM ; [facility] Type AB blood, Rh positive 07/12/2016 JOSY SEXTON RN DIANE BC Active Last Documented On 6 2:16PM ; [facility] Plan of Treatment - Clinical summary provided to patient - Last Documented On 01/11/2023 3:45PM ; [facility] PT TO CALL WITH ANY CHANGE IN STATUS ALL QUESTIONS ANSWERED WITH UNDERSTANDING VERBALIZED BY PT. - Last Documented On 01/11/2023 3:45PM ; [facility] Instructions to patient Instructions for patient : B reast Self Exam discussed and technique reviewed Last Documented On 3 3:24PM ; [facility] Use a condom during sexual i ntercourse Last Documented On 3 3:24PM ; [facility] Instructed to call if excess chris bleeding or abdominal/pelvic pain Last Documented On 3 3:24PM ; [facility] Recommend diet and exercise at least 30 min three times per week Last Documented On 3 3:24PM ; [facility] Education and Decision Aids were provided during visit for: Patient Education: Daily yan cium and vitamin D Last Documented On 3 3:24PM ; [facility] Assessments Includes: Assessments from this encounter Findings - [Z01.419 - Encounter for gynecological examination (general) (routine) without abnormal findings] NORMAL FEMALE EXAM - Last Documented On 01/11/2023 3:45PM ; [facility] - [Z12.4 - Encounter for screening for malignant neoplasm of cervix] Screen malignant neoplasm cervix - Last Documented On 01/11/2023 3:45PM ; [facility] Instructions Includes: Instructions from this encounter Instructions to patient Instructions for patient : B reast Self Exam discussed and technique reviewed Last Documented On 3 3:24PM ; [facility] Use a condom during sexual i ntercourse Last Documented On 3 3:24PM ; [facility] Instructed to call if excess chris bleeding or abdominal/pelvic pain Last Documented On 3 3:24PM ; [facility] Recommend diet and exercise at least 30 min three times per week Last Documented On 3 3:24PM ; [facility] Education and Decision Aids were provided during visit for: Patient Education: Daily yan cium and vitamin D Last Documented On 3 3:24PM ; [facility] Medical Equipment - Implanted Devices Includes: Current Devices No Medical Equipment Recorded Medications Includes: Medications discussed during this encounter and other current Medications Current Medications (continue as prescribed) Mirena (52 MG) 20 MCG/DAY Intrauterine Intrauterine de vice 02/09/2023 Provider: Diagnosis: Last Documented On 05/25/2023 3:02PM By Machelle Augustine ; [facility] Past Medications on file Ibuprofen 800 MG Oral Tablet 02/09/2023 - 02/16/2023 Provider: JOSY ESCOBAR Diagnosis: Encounter for in itial prescription of other contraceptives One tablet three times a day TAKE DIRECTED W/FOOD Last Documented On 3 8:38AM By JOSY VALLE ; [facility] Sertraline HCl 100MG Oral Tablet 04/12/2018 - 04/28/2018 Provider: JOSY ESCOBAR Diagnosis: Major depressive disorder, recurrent, moderate One tablet daily Last Documented On 8 9:21AM By JOSY VALLE ; [facility] Sertraline HCl 50MG Oral Tablet 04/06/2018 - 04/13/2018 Provider: JOSY ESCOBAR Diagnosis: Major depressive disorder, recurrent, moderate 1 po q day......ed Last Documented On 8 6:29PM By MARIAH CODY ; [facility] Sertraline HCl 50MG Oral Tablet 11/21/2017 - 12/12/2017 Provider: JOSY ESCOBAR Diagnosis: Major depressive disorder, recurrent, moderate One tablet daily Last Documented On 8 4:09PM By JOSY VALLE ; [facility] Macrobid 100MG Oral Capsule 05/11/2017 - 05/18/2017 Pr ovider: JOSY ESCOBAR Diagnosis: Dysuria One tablet twice a day Last Documented On 7 3:20PM By JOSY VALLE ; [facility] Ferrous Gluconate 324 (37.5 Fe)MG Oral Tablet 04/28/2017 - 08/26/2017 Provider: JOSY ESCOBAR Diagnosis: Anemia complicat ing , third trimester One tablet twice a day Last Documented On 7 11:13AM By JOSY VALLE ; [facility] Plus 27-1MG Oral Tablet 11/24/2016 - 11/19/2017 Provider: JOSY CHAKRABORTY Diagnosis: Irregular menstr uation, unspecified 1 capsule daily Last Documented On 7 2:01PM By JOSY VALLE ; [facility] Terconazole 0.8 % Cream 07/08/2016 - 07/11/2016 Provid er: JOSY ESCOBAR Diagnosis: Acute vaginitis as directed 1 ildefonso in vagina at HS x 3 Last Documented On 6 2:30PM By JOSY VALLE ; [facility] Plus 27-1 MG Tablet 07/05/2016 - 06/30/2017 Provider: JOSY CHAKRABORTY Diagnosis: Encounter for ot h general cnsl and advice on procreation One tablet daily Last Documented On 6 4:08PM By JOSY VALLE ; [facility] Naproxen 500 MG Tablet 01/20/2016 - 01/27/2016 Provide r: JOSY ESCOBAR Diagnosis: Pelvic and perin eal pain One tablet twice a day ONE T AB TWICE A DAY WITH FOOD DON'T EXCEED 2 TABS IN 24 HOURS Last Documented On 6 4:17PM By JOSY VALLE ; [facility] Medications Administered Includes: Administered Medications from this encounter No Administered Medications Recorded Vital Signs Includes: Vital Signs from this encounter Vital Name 01/11/2023 03:07P Blood Pressure Sitting L 114/70 BP Cuff Size Regular Temp-Temporal 98.5 Height (in) 63 Weight (lb) 145 Body Mass Index 25.7 Body Surface Area 1.7 Last Documented: On 01/11/2023 3:14PM ; [facility] Results Includes: Results discussed during this encounter No Results Recorded For Specified Dates History of Present Illness Includes: History of Present Illness from this encounter HPI - Allergy list reviewed - Medication list reviewed Social History Description Last Updated 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/2023 Last Documented On 3 3:45PM ; [facility] In monogamous relationship last coitus 1 month ago 01/11/2023 Last Documented On 3 3:45PM ; [facility] Activities 01/11/2023 Last Documented On 3 3:45PM ; [facility] Alcohol use seldom 01/11/2023 Last Documented On 3 3:45PM ; [facility] Alcohol use: 2 drinks or less per day no ne 01/11/2023 Last Documented On 3 3:45PM ; [facility] Amount of sleep 01/11/2023 Last Documented On 3 3:45PM ; [facility] Current nonsmoker 01/11/2023 Last Documented On 3 3:45PM ; [facility] Education history 01/11/2023 Last Documented On 3 3:45PM ; [facility] Educational level 01/11/2023 Last Documented On 3 3:45PM ; [facility] Exercising regularly 01/11/2023 Last Documented On 3 3:45PM ; [facility] Marital history Single 01/11/2023 Last Documented On 3 3:45PM ; [facility] Non-smoker 01/11/2023 Last Documented On 3 3:45PM ; [facility] Not using drugs 01/11/2023 Last Documented On 3 3:45PM ; [facility] Personal history 01/11/2023 Last Documented On 3 3:45PM ; [facility] Sexually active 01/11/2023 Last Documented On 3 3:45PM ; [facility] Smoking status : Never smoker 01/11/2023 Last Documented On 3 3:45PM ; [facility] Social history unchanged single parent n o assistance from FOB 01/11/2023 Last Documented On 3 3:45PM ; [facility] Not using alcohol 01/11/2023 Last Documented On 3 3:45PM ; [facility] Sexually active with 1 partners in the l ast year 01/11/2023 Last Documented On 3 3:45PM ; [facility] Tobacco non-user 01/11/2023 Last Documented On 3 3:45PM ; [facility] Procedures and Surgical History Includes: Procedures from this encounter Procedures Code Diagnosis Performing Provider Service L ocation Service Date education and instructions Last Documented On 3 3:24PM ; [facility] explanation of plan Last Documented On 3 3:24PM ; [facility] Discussed Contraception Pt. instructed she must abstain or use a reliable method of contraception until IUD can be placed. Partner had vasectomy 06/14, but has not had negative sperm counts as of today. All questions answered Last Documented On 3 3:45PM ; [facility] Urged Exercise and Diet , exercise at le ast 30 min three times per week Last Documented On 3 3:24PM ; [facility] Clinical summary provided to patient Last Documented On 3 3:24PM ; [facility] cervical Pap smear 08496 Last Documented On 3 3:24PM ; [facility] history of cervical Pap smear 12/2020 00135 Last Documented On 3 3:15PM ; [facility] Surgical History Last Updated Surgical / procedural history Gel Breast Implants-04/202201/11/2023 Last Documented On 3 3:45PM ; [facility] Medical History Includes: Medical History addressed during this encounter Description Last Updated Last pap smear date 12/202001/11/2023 Last Documented On 3 3:45PM ; [facility] Sexually active last unprotected about a month ago 01/11/2023 Last Documented On 3 3:45PM ; [facility] LMP: 01/08/2023 01/11/2023 Last Documented On 3 3:45PM ; [facility] History of cervical Pap smear 12/2020 Last Documented On 3 3:45PM ; [facility] History of Pap smear done 12/2020 023 Last Documented On 3 3:45PM ; [facility] Last pap smear date 12/202001/11/2023 Last Documented On 3 3:45PM ; [facility] PRIMARY CARE PROVIDER : Dr Brownlee 0 Last Documented On 3 2:58PM ; [facility] Vaginal delivery x 2 10/21/2019 Last Documented On 3 2:58PM ; [facility] Para 2 04/12/2018 Last Documented On 3 2:58PM ; [facility] Result: normal 11/21/2017 Last Documented On 3 2:58PM ; [facility] Baby thriving STA Nicole Adame 39- 1/7wks #6 12oz 08/11/2017 Last Documented On 3 2:58PM ; [facility] Depression 06/09/2017 Last Documented On 3 2:58PM ; [facility] History of allergic rhinitis Seasonal Last Documented On 3 2:58PM ; [facility] History of depression 06/09/2017 Last Documented On 3 2:58PM ; [facility] History of Gardasil 06/09/2017 Last Documented On 3 2:58PM ; [facility] History of recurrent loss (gra vid) 06/09/2017 Last Documented On 3 2:58PM ; [facility] Not taking medication for depression Last Documented On 3 2:58PM ; [facility] Aborta 2 11/24/2016 Last Documented On 3 2:58PM ; [facility] 4 11/24/2016 Last Documented On 3 2:58PM ; [facility] Family History Includes: Family History addressed during this encounter Description Last Updated Parkinsons-MGM 01/11/2023 Last Documented On 3 3:45PM ; [facility] Family history of malignant female breas t neoplasm PGM 01/11/2023 Last Documented On 3 3:45PM ; [facility] Family history of diabetes mellitus PGGM 10/21/2019 Last Documented On 3 2:58PM ; [facility] Paternal grandmother's histo ry of malignant female breast neoplasm Pat, GMA 01/20/2016 Last Documented On 3 2:58PM ; [facility] Review of Systems Includes: Review of Systems [...] No blood clotting problems. Musculoskeletal: No back pain, no muscle aches, and no localized joint pain. Neurological: No dizziness. Psychological: No anxiety, no [...] Active Last Documented On 3 3:01PM ; [facility] Encounters Encounter Provider Location Date Check-In Time Check-Out Time Diagnosis [facility] PT JOSY LAWSON RN DIANE [facility] 01/12/20 23 2:56PM 3:42PM Screen Malignant Neoplasm Cervix,Normal Female Exam Insurance Includes: Active Insurance Policies Plan Name Member ID Group # Subscriber Relationship Effect chris Dates 1 - [facility] [id number] [employer] Self Clinical Notes Includes: Clinical Notes from this encounter * Progress note Date Encounter Last Documented by 01/11/2023 [facility] PT Last documented on 01/11/2023; 3:45 PM, JOYS LAWSON RN NP ; [facility] Active Problems & Conditions - F32.9 - Depression - Nephrolithiasis - Z80.3 - Paternal Grandmother's History of Breast Neoplasm Malignant Female - Pat, GMA - Z67.30 - Type AB blood, Rh positive Chief Complaint The Chief Complaint is: WWE. Pt would like a Mirena. [facility] visit Reason For Visit Gynecologic annual exam. History of Present Illness - Allergy list reviewed - Medication list reviewed Current Medication - None Past Medical/Surgical History Other: Primary Care Provider: Dr Brownlee Reported: LMP: 01/08/2023, Last pap smear date 12/2020, and last pap smear date result: normal. Medical: Depression. Surgical / Procedural: Surgical / procedural history Gel Breast Implants- 04/2022. Medications: Not taking medication for depression. Immunization History: History of Gardasil. : Baby thriving [place] [address]- 07/30wks #6 12oz, 4, para 2, aborta 2, and history of the : vaginal delivery x 2. Sexual: Sexually active last unprotected about a month ago. Other: Cervical Pap smear 12/2020 Diagnoses: Allergic rhinitis Seasonal. Recurrent loss (gravid). Depression Procedural: - Pap smear done 12/2020 Social History Social history unchanged single parent no assistance from FOB. 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 Tobacco use: Current nonsmoker and non-smoker. Smoking status: Never smoker. Alcohol: Not using alcohol. Alcohol use seldom and alcohol use: 2 drinks or less per day none. Drug Use: Not using drugs. Habits: Amount of sleep. Exercising regularly. Education: Educational level. Activities: Activities. Marital: Marital history Single. Sexual: Sexually active. In monogamous relationship last coitus 1 month ago. Sexually active with 1 partners in the last year. Allergies - SEASONAL Family History Parkinsons-MGM Diabetes mellitus PGGM Malignant female breast neoplasm PGM Paternal grandmother's: Malignant female breast neoplasm Pat, GMA Review Of Systems Systemic: Feeling fine and not tiring easily. [...] No blood clotting problems. Musculoskeletal: No back pain, no muscle aches, and no localized joint pain. Neurological: No dizziness. Psychological: No anxiety, no depression, and a desire to continue living. Skin: No pruritus. No skin lesions and no rash. Allergic and Immunologic: No hay fever. Physical Findings - Vitals taken 01/11/2023 03:07 pm BP-Sitting L 114/70 mmHg BP Cuff Size Regular Temp-Temporal 98.5 F Height 63 in Weight 145 lbs Body Mass Index 25.7 kg/m2 Body Surface Area 1.7 m2 Standard Measurements: - Patient was not observed to be obese. General Appearance: - Normal. - Well developed. - Well nourished. - In no acute distress. Neck: - Normal. Appearance: - Neck was not swollen. - Neck was symmetrical. Palpation: - No tenderness of the neck. Thyroid: - Showed no abnormalities. - Did not have a nodule. - Not tender. - Is normal. Eyes: General/bilateral: Pupils: - PERRL. Nose: Right Side Of Nose: - Normal. Left Side Of Nose: - Normal. Oral Cavity: - General condition was good. Gums: - Examination showed no abnormalities. Teeth: - Dental no abnormalities. Lymph Nodes: - No adenopathy. - Cervical lymph nodes: normal. - Supraclavicular lymph Nodes: normal. Breasts: General/bilateral: - Palpation of the breast revealed dense, thickened tissue. - No abnormal breast secretion was observed. - No dimpling was seen in the breast. - No breast asymmetry was observed. - No breast mass was found. - No tenderness of the breast. Right Breast: - Normal. - Was normal to palpation. Left Breast: - Normal. - Was normal to palpation. Lungs: - Respiration rhythm and depth was normal. - Clear to auscultation. - No wheezing was heard. - No rhonchi were heard. Cardiovascular: - System: normal. Heart Rate And Rhythm: - Normal. - Heart rhythm regular. Heart Sounds: - Normal. - S1 normal. - S2 normal. - No gallop was heard. Murmurs: - No murmurs were heard. Edema: - Not present. Abdomen: - No organomegaly. Visual Inspection: - Abdomen was normal on visual inspection. Palpation: - Abdominal non-tender. Liver: - Not enlarged. Spleen: - Not enlarged. Urinary System: Bladder: - Normal. - Not tender. Urethra: - Normal. - Meatus showed no abnormalities. - No mass on the urethra. Genitalia: External: - Genitalia showed no abnormalities. Pelvic: - No ovarian mass. Vagina: - Mucosa was normal. - No vaginal discharge was observed. - No cystocele was observed. - No rectocele was observed. Cervix: - Normal. - No cervical discharge. - Showed no lesion. - Did not demonstrate pain elicited by motion. - No inflammation. - No stenosis. Uterus: - Normal. - Positioned midline. - Mobile. - Uterine size is normal. - Not tender. Uterine Adnexae: - Normal. - Uterine adnexa was not tender. - No tubal mass was noted. Rectovaginal: - Tissue was normal. Perineum: - Normal. - No lesions. - No rashes. - No hirsutism. Rectal: - Exam: Anus Examination: - External hemorrhoids were observed. - Anus was normal. Musculoskeletal System: Fingers: General/bilateral: - No cyanosis of the fingers. - No acropachy of the fingers was observed. Neurological: - Oriented to time, place, and person. Psychiatric: - Mood was not anxious. Appearance: - Grooming was normal. Affect: - Not agitated. Skin: - General appearance was normal. - Texture was normal. - Turgor was normal. - No cyanosis. - Moisture was normal. - No skin lesions. - No perineal lesions. - No rash. Tests Pathology: Cytology: Cervical Pap smear. Assessment - [Z01.419 - Encounter for gynecological examination (general) (routine) without abnormal findings] NORMAL FEMALE EXAM - [Z12.4 - Encounter for screening for malignant neoplasm of cervix] Screen malignant neoplasm cervix Previous Tests Pathology: Cytology: Cervical Pap smear 12/2020. Therapy - Urged Exercise and Diet, exercise at least 30 min three times per week. - Education and instructions. - Discussed Contraception Pt. instructed she must abstain or use a reliable method of contraception until IUD can be placed. Partner had vasectomy 06/14, but has not had negative sperm counts as of today. All questions answered. - Clinical summary provided to patient. - Explanation of plan. 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 Health Reminders - Assess BMI satisfied 01/11/2023. - Assess Tobacco Use satisfied 01/11/2023.
--- OUTSIDE RECORDS SUMMARY | 2024-10-07 08:37 | XMS_ITS | Patient Health Summary ---
Author Organization [facility] Address [address] [place] [address] Care Team Providers Care Perianesthesia Manager Name Role Phone Bridget Haji MD Primary Care Provider Note from [facility],non-owned Affiliates and Associated Physician Practices is amultiple site organization consisting of ambulatory clinics and hospital sitesin [place], [place], [place] and [place]. This disclosure is being madepursuant to the Care Everywhere program and may not contain all information available regarding this patient. Last updated 18.[facility] Allergies * Penicillins(Swelling) Medications * Be aware that medications may not be up to date on this document. Alwaysverify current medications with the patient. * Vit-Fe Fumarate-FA ( VITAMIN) 28-0.8 MG tablet Take 1 Tab by mouth once daily. * ferrous gluconate 324 MG tablet Take 324 mg by mouth 2 times daily. * NIFEdipine (PROCARDIA) 20 MG capsule(Started 06/14/2011) Take 1 Cap by mouth every 6 hours. 2 refills left Active Problems Problem Noted Date Diagnosed Date Supervision of normal 06/13/2011 Anemia 06/13/2011 H/O: 1 miscarriage 06/13/2011 UTI (urinary tract infection) 06/13/2011 Immunizations * INFLUENZA VACCINE(Given 06/14/2011) Social History Tobacco Use Types Packs/Day Years Used Date Smoking Tobacco: Never Smokeless Tobacco: Never Tobacco Cessation:Counseling Given: No Alcohol Use Standard Drinks/Week Comments No 0 (1 standard drink = 0.6 oz pur e alcohol) Sex and Gender Information Value Date Recorded Sex Assigned at Not on file Gender Identity Not on file Sexual Orientation Not on file Last Filed Vital Signs Vital Sign Reading Time Taken Comments Blood Pressure 129/61 06/14/2011 11:14 AM NEEDLE BAR MOLDER Pulse 116 06/13/2011 8:45 PM NEEDLE BAR MOLDER Temperature 35.8 C (96.5 F) 06/14/2011 7:25 AM NEEDLE BAR MOLDER Respiratory Rate 18 06/14/2011 7:25 AM NEEDLE BAR MOLDER Oxygen Saturation - - Inhaled Oxygen Concentration - - Weight 68 kg (150 lb) 06/13/2011 3:25 PM NEEDLE BAR MOLDER Height 160 cm (5' 3 ) 06/13/2011 3:25 PM NEEDLE BAR MOLDER Body Mass Index 26.57 06/13/2011 3:25 PM NEEDLE BAR MOLDER Procedures * CULTURE STREP GROUP A(Performed 2014) * LAB RESULTS ORDER(Performed 06/16/2011) * IMAGING/RADIOLOGY/XRAY RESULTS ORDER(Performed 06/16/2011) * IP CONSULT TO NEONATOLOGY(Performed 06/14/2011) * SONOGRAM - COMPLETE(Performed 06/14/2011) * GLUCOSE PROTEIN KETONE URINE - POINT OF CAR(Performed 06/13/2011) * INFLUENZA A+B ANTIGEN RAPID(Performed 06/13/2011) * BLOOD TYPE VERIFICATION(Performed 06/13/2011) * DRUG SCREEN URINE TRIAGE PANEL(Performed 06/13/2011) * CULTURE STREP B(Performed 06/13/2011) * CHLAMYDIA + GC AMPLIFIED PROBE(Performed 06/13/2011) * URINALYSIS REFLEX MICROSCOPIC REFLEX CULTURE(Performed 06/13/2011) * CULTURE URINE(Performed 06/13/2011) * TYPE + SCREEN PANEL(Performed 06/13/2011) * COMPREHENSIVE METABOLIC PANEL(Performed 06/13/2011) * CBC W AUTO DIFFERENTIAL(Performed 06/13/2011) Results * CULTURE STREP GROUP A (2014 2:09 PM CDT) Culture Beta Strep No Growth of Groups A, C or G Beta Streptococc us. [facility] Throat swab (specimen) ENTIRE THROAT (SURFACE REGION OF NECK) / Unknown 2014 2:09 PM CDT 2014 9:44 PM CDT Narrative [facility] - 03/20/2014 7:54 AM CDT GianfrancoSpecimen#[id number] Gianfranco Loc/Rm/Bed: EXPCARE B// Historical Provider LAB - MICROBIOLOG Y ORDERABLES [id number] [place] [address], [facility] [phone] * LAB RESULTS ORDER (06/16/2011 11:57 AM NEEDLE BAR MOLDER) Narrative Transcriptions Document, Scanned - 06/16/2011 11:57 AM CST Scanned Document LAB - THERAPEUTIC DR DIANA MONITORING ORDERABLES * IMAGING/RADIOLOGY/XRAY RESULTS ORDER (06/16/2011 11:57 AM NEEDLE BAR MOLDER) Anatomical Region Laterality Modality Other Narrative Transcriptions Document, Scanned - 06/16/2011 11:57 AM CST Scanned Document IMAGING * IP CONSULT TO NEONATOLOGY (06/14/2011 12:53 PM NEEDLE BAR MOLDER) Narrative Sierra Morris MD - 06/14/2011 12:53 PM NEEDLE BAR MOLDER Sierra Morris MD 06/14/2011 12:53 PM Maternal Consult Note Coby Pham [phone] Today's Date: 06/13/2011 Estimated Gestational Age: 34w4d Estimated Weight: 2370 Date Requested: 1121 Reason for requesting consultation: labor. HPI: She presented at [place] earlier today for complaints of lower back pain that began on Monday evening. She did not try any therapy for her pain . She reports the pain becoming progressively more bothersome over the weekend so she went to the ED at the OSH. She had some urinary frequency, but denies any dysuria or hematuria. She endorses subjective fevers as well as some nausea and vomiting x1 this morning. She reports feeling occasional contractions over the last few weeks, but nothing persistent or painful. At the OSH her initial temperature was 100.7. Additionally, she was noted to be having irregular contractions approximatly 4-7 minutes apart. Her UA was sent and came back with moderate leukocytes and 2+ bacteria so she was given a dose of macrobid 100mg x1 in addition to the 20mg of Procardia she was given for uterine contractions. Patient is past appropriate gestational age for steroids.rotine cultures pending. labs reviewed Blood type: AB+ Rh status: Positive Ab screen:Negative Rubella: immune Hep B surface antigen:Negative RPR: negative HIV:Negative GCT: 129 GBS: pending Findings: Maternal History: OB History Grav Para Term Abortions TAB SAB Ect Mult Living 2 1 1 unknown Current Medications: ferrous sulfate tablet 325 mg, Oral, BID WC influenza virus vacc (FLUARIX; FLUZONE) injection 0.5 mL, Intramuscular, Immunization - Once plus 27-1 MG tablet 1 Tab, Oral, QDAY No current facility-administered medications on file prior to encounter. No current outpatient prescriptions on file prior to encounter. Other medications used during : none Social History: reports that she has never smoked. She has never used smokeless tobacco. She reports that she does not currently drink alcohol or use illicit drugs. Family History: family history includes Diabetes in her paternal grandmother. Finisher Screwdown: Feeding: discussed, and patient is agreeable. Briefly discussed adverse outcome risks with 34 4/7 wk prematurity with mother at bedside including: MEDICAL COMMUNICATION SPECIALIST/development - Discussed effects on feeding ability, poor regulation of temperature and respiratory centers. Increased risk of intracranial/intraventricular hemorrhage compared with term , less significant with increasing gestational age at delivery. Future risk for developmental delay, and in severe cases cerebral palsy. Recommended early intervention services and OT/PT as needed for concerns. Respiratory - Discussed possibility of needing respiratory support including intubation with mechanical ventilation, and possible need for surfactant. Increased risk of bronchopulmonary dysplasia with penitentiary prognosis related to severity of condition. steroids may assist lung maturity. Delayed feeding - Discussed poor feeding/swallowing coordination. Possible need for IV nutrition with TPN and delayed GI feeding. Possible need for gavage feeding by NGT. Delayed feeding may result in oral aversion and oral motor dysfunction. Recommended early expression of breastmilk. Recommend c/s for additional support. Necrotizing Enterocolitis- Increased risk for NEC with prematurity with penitentiary prognosis depending on severity of condition. Retinopathy of Prematurity- Discussed risks to vision with prematurity of retina and early screening in period. Hyperbilirubinemia- Discussed jaundice requiring phototherapy given combined risk factors of prematurity, delayed enteric feeds, and possibility of infection or any condition which may result in hemolysis. Cardiovascular-Discussed persistant circulation with persisting PDA requiring treatment with medication or in severe cases, surgical ligation. Immature immune system- Discussed risk of sepsis and susceptibility of infection. Discussed need for antibiotic treatment after with pending sepsis evaluation. Immediate and prolonged hospital stay Discussed possible need for ICU care. Discussed possible need for IV lines, umbilical/central lines, possible blood transfusion, intubation/ventilator support. Discussed possible need for infant transfer to [facility] early in life. General Morbidity and Mortality - Reviewed survival data for infants of comparable gestational age and birthweight. Impression and plan: 2370 at 34 4/7 wk EGA gestation with threatened PTL. Additional risk factors: 1. Explained above risks in detail and general care, patient understood and questions were answered. 2. Mother aware to contact our team with further questions. 3. Plan to provide neonatology support in case of delivery. 4. Discuss with Attending for further recommendations. Thanks for the consult, please contact us for questions. Neonatology Attending Consult Addendum: Resident note reviewed, OB chart reviewed and spoke with Dr Perrin.. Spoke with mother. Significant information is mom is 21yo A1 now at 34 5/7 weeks with EDD1/21/06 and EFW 2370 grams, vertex by bedside US. complications include UTI with TPTL admitted 06/13.Currently on macrobid, procardia, PNV, Fe. P{renatal labs include type AB pos, GBS unknown, others all normal.Possible morbidities and mortality as well as likely procedures as per resident note. Mom to go home today and expects to deliver in [place] close to term. Finisher Screwdown will be Dr Choi in [place].Mom to breastfeed. If mom does return in labor we discussed delivery room care and anticipating discharge at 34-36 weeks when able to nipple and maintain temperature. Sierra Morris MD 06/14/2011 12:50 PM Procedure Note Sierra Morris MD - 06/13/2011 5:54 PM CST Maternal Consult Note Coby Pham [phone] Today's Date: 06/13/2011 Estimated Gestational Age: 34w4d Estimated Weight: 2370 Date Requested: 1121 Reason for requesting consultation: labor. HPI: She presented at [place] earlier today for complaints of lower back painthat began on Monday evening. She did not try any therapy for her pain .She reports the pain becoming progressively more bothersome over theweekend so she went to the ED at the OSH. She had some urinary frequency,but denies any dysuria or hematuria. She endorses subjective fevers aswell as some nausea and vomiting x1 this morning. She reports feelingoccasional contractions over the last few weeks, but nothing persistent orpainful. At the OSH her initial temperature was 100.7. Additionally, shewas noted to be having irregular contractions approximatly 4-7 minutesapart. Her UA was sent and came back with moderate leukocytes and 2+bacteria so she was given a dose of macrobid 100mg x1 in addition to [id number] of Procardia she was given for uterine contractions. Patient is past appropriate gestational age for steroids.rotine culturespending. labs reviewed Blood type: AB+ Rh status: Positive Ab screen:Negative Rubella: immune Hep B surface antigen:Negative RPR: negative HIV:Negative GCT: 129 GBS: pending Findings: Maternal History: OB History Grav Para Term Abortions TAB SAB Ect Mult Living 2 1 1 unknown Current Medications: ferrous sulfate tablet 325 mg, Oral, BID WC influenza virus vacc (FLUARIX; FLUZONE) injection 0.5 mL, Intramuscular,Immunization - Once plus 27-1 MG tablet 1 Tab, Oral, QDAY No current facility-administered medications on file prior to encounter. No current outpatient prescriptions on file prior to encounter. Other medications used during : none Social History: reports that she has never smoked. She hasnever used smokeless tobacco. She reports that she does not currentlydrink alcohol or use illicit drugs. Family History: family history includes Diabetes in herpaternal grandmother. Finisher Screwdown: Feeding: discussed, and patient is agreeable. Briefly discussed adverse outcome risks with 34 4/7 wk prematurity withmother at bedside including: MEDICAL COMMUNICATION SPECIALIST/development - Discussed effects on feeding ability, poorregulation of temperature and respiratory centers. Increased risk ofintracranial/intraventricular hemorrhage compared with term , lesssignificant with increasing gestational age at delivery. Future risk fordevelopmental delay, and in severe cases cerebral palsy. Recommended earlyintervention services and OT/PT as needed for concerns. Respiratory - Discussed possibility of needing respiratory supportincluding intubation with mechanical ventilation, and possible need forsurfactant. Increased risk of bronchopulmonary dysplasia with long termprognosis related to severity of condition. steroids may assistfetal lung maturity. Delayed feeding - Discussed poor feeding/swallowing coordination.Possible need for IV nutrition with TPN and delayed GI feeding. Possibleneed for gavage feeding by NGT. Delayed feeding may result in oralaversion and oral motor dysfunction. Recommended early expression ofbreastmilk. Recommend c/s for additional support. Necrotizing Enterocolitis- Increased risk for NEC with prematurity withlong term prognosis depending on severity of condition. Retinopathy of Prematurity- Discussed risks to vision with prematurity ofretina and early screening in period. Hyperbilirubinemia- Discussed jaundice requiring phototherapygiven combined risk factors of prematurity, delayed enteric feeds, andpossibility of infection or any condition which may result in newbornhemolysis. Cardiovascular-Discussed persistant circulation with persisting PDArequiring treatment with medication or in severe cases, surgical ligation. Immature immune system- Discussed risk of sepsis andsusceptibility of infection. Discussed need for antibiotic treatment afterbirth with pending sepsis evaluation. Immediate and prolonged hospital stay - Discussed possible need for ICUcare. Discussed possible need for IV lines, umbilical/central lines,possible blood transfusion, intubation/ventilator support. Discussedpossible need for infant transfer to [facility] early in life. General Morbidity and Mortality - Reviewed survival data for infants ofcomparable gestational age and birthweight. Impression and plan: 2370 at 34 4/7 wk EGA gestation with threatened PTL. Additional risk factors: 1. Explained above risks in detail and general infant care,patient understood and questions were answered. 2. Mother aware to contact our team with further questions. 3. Plan to provide neonatology support in case of delivery. 4. Discuss with Attending for further recommendations. Thanks for the consult, please contact us for questions. Neonatology Attending Consult Addendum: Resident note reviewed, OB chart reviewed and spoke with Dr Perrin.. Spokewith mother. Significant information is mom is 21yo A1 now at 34 5/7weeks with EDD1 and EFW 2370 grams, vertex by bedside US. complications include UTI with TPTL admitted 06/13.Currently onmacrobid, procardia, PNV, Fe. P{renatal labs include type AB pos, GBSunknown, others all normal.Possible morbidities and mortality as well aslikely procedures as per resident note. Mom to go home today and expectsto deliver in [place] close to term. Finisher Screwdown will be Dr Steph Liu.Mom to breastfeed. If mom does return in labor we discusseddelivery room care and anticipating discharge at 34-36 weeks when able tonipple and maintain temperature. Sierra Morris MD 06/14/2011 12:50 PM Farideh Brown MD INPATIENT CONSULT OR DERABLES * SONOGRAM - COMPLETE (06/14/2011 10:16 AM NEEDLE BAR MOLDER) Anatomical Region Laterality Modality Other 06/14/2011 10:1 6 AM NEEDLE BAR MOLDER Narrative 06/15/2011 1:31 PM NEEDLE BAR MOLDER [facility] PHONE: FAX: Pat. Name: COBY PHAM Pat. No: [id number] Study Date: 06/14/2011 10:16am , Age: 08 1990, 21 Pregnancies: 2, Para 0, Ab 1 LMP: Unknown GA by US: 32w4d GA Selected: 34w5d (From Known E) VERITO: 07/21/2011 Referring MD: PABLO AYALA MD Plodding Operator: Kemi Mcdowell RN, RDMS Hist/Ind: Anatomy Screen UTI PTL MEASUREMENTS & AGE GROWTH EVALUATION Measurement GA Range Srce %for GA Ratios ----- ---- ------- BPD 8.1 cm 32w5d (20w5e-80k9d) Hadl BPD 20% FL/BPD 0.79 (0.71 - 0.87) HC 28.6 cm 31w3d (48f4w-98i3w) Hadl HC <05 FL/AC 0.22 (0.20 - 0.24) AC 28.7 cm 32w5d (53w0h-24s7y) Hadl AC 20% HC/AC 1.00 (0.94 - 1.13) FL 6.4 cm 33w0d (92h8j-74u9n) Hadl FL 24% CI 0.83 (0.70 - 0.86) HL 5.6 cm 32w5d (96r8p-50a2b) Joseph HL 17% GA for sonogram 32w4d (82r2w-69j9h) based on (HL,BPD,HC,AC,FL) Avg Heart Rate: 140 bpm Amniotic Fluid Index: 12.4cm (08.0-24.9) DOPPLER Umbilical - Mid Cord S/D 2.30 CLINICAL SUMMARY Study Number: 1 A groves fetus is identified in cephalic presentation. The measurements today are consistent with appropriate growth compared to previous examination. The VERITO selected is based on a prior ultrasound examination (unconfirmed). The amniotic fluid volume is within normal limits. The placenta is posterior, Grade 2. No major malformations are seen. The patient was advised that ultrasound does not allow detection of all structural or chromosomal abnormalities. DOPPLER STUDIES: The umbilical artery Doppler S/D ratio is 2.3, which is within normal limits for gestational age IMPRESSION: Groves IUP at 34w5d Normal amniotic fluid volume Appropriate growth Placental location: Posterior No major malformations are seen today within the limitations of ultrasound RECOMMEND: Follow up ultrasound as clinically indicated Thank you for allowing us the opportunity to care for your patient cc: Inpatient at time of study Carloz Beltrán MD <Electronic Signature> 06/15/2011 01:30pm Farideh Brown MD [facility] ORDERABLES * GLUCOSE PROTEIN KETONE URINE - POINT OF CAR (06/13/2011 9:00 PM NEEDLE BAR MOLDER) Glucose UA negative Negative [facility] Protein UA negative Negative [facility] Ketone UA moderate Negative [facility] QC Verified yes Yes [facility] POC T TESTING Urine specimen (specimen) URINE / Unknown 06/13/2011 9:00 PM NEEDLE BAR MOLDER Farideh Brown MD LAB - POINT OF CARE ORDERABLES [facility] [place] [address] * INFLUENZA A+B ANTIGEN RAPID (06/13/2011 8:35 PM NEEDLE BAR MOLDER) Influenza A Antigen PRESUMPTIVE NEGATIVE Negative [facility] Influenza B Antigen PRESUMPTIVE NEGATIVE Negative [facility] Comment Influenza A/B [facility] Comment: The sensitivity of this assay has been shown to range between 10-70% for the detection of 2009 H1N1 influenza (formerly called novel H1N1 influenza or swine flu) and between 20-100% for seasonal influenza viruses. A presumptive negative result sullivan not exclude influenza virus infection. If influenza is circulating in your community, a diagnosis of influenza should be considered based on a patient's clinical presentation and empiric antiviral treatment should be considered if indicated. Miscellaneous samples (specimen) NASOPHARYNGEAL SWAB / Unknown 06/13/2011 8:35 PM NEEDLE BAR MOLDER 06/13/2011 8:48 PM NEEDLE BAR MOLDER Alessandra Park MD LAB - MICROBIOLOGY O RDERABLES Performing Organization Address City/[facility]/ZIP Co de Phone Number [facility] [address] [place] [address] * BLOOD TYPE VERIFICATION (06/13/2011 5:10 PM NEEDLE BAR MOLDER) ABO Rh AB Pos SEE BELOW [facility] Comment: Weak D testing is not performed at [facility] BLOOD SPECIMEN / Unknown 06/13/2011 5:10 PM NEEDLE BAR MOLDER 06/13/2011 5:47 PM NEEDLE BAR MOLDER Bridget Haji MD LAB - BLOOD BA NK ORDERABLES Performing Organization Address [facility] Co de Phone Number [facility] [address] [place] [phone] * CHLAMYDIA + GC AMPLIFIED PROBE (06/13/2011 5:10 PM NEEDLE BAR MOLDER) Chlamydia trachomatis Amplified Probe Negative [facility] GC Amplified Probe Negative [facility] Comment Amplified Probe [facility] Comment: Comments and Normal Ranges for Component Amplified Probe Comment Results based on detection/no detection of RNA by amplified method. Miscellaneous samples (specimen) PART OF UTERINE CERVIX / Unknown 06/13/2011 5:10 PM NEEDLE BAR MOLDER 06/13/2011 5:44 PM NEEDLE BAR MOLDER Narrative Resulting Agency Comment Performed By [facility] [address] [address] Farideh Brown MD LAB - MICROBIOLOGY O RDERABLES Performing Organization Address [facility] Co de Phone Number [facility] [address] [place] [phone] * CULTURE STREP B (06/13/2011 5:10 PM NEEDLE BAR MOLDER) Result [facility] Comment: Final CULTURE NO growth of beta-hemolytic strep Group B Miscellaneous samples (specimen) MISCELLANEOUS SAMPLES / Unknown 06/13/2011 5:10 PM NEEDLE BAR MOLDER 06/13/2011 5:44 PM NEEDLE BAR MOLDER Narrative Resulting Agency Comment Performed By [facility] [address] Farideh Brown MD LAB - MICROBIOLOGY O RDERABLES Performing Organization Address City/[facility] Co de Phone Number [facility] [address] [place] [address] * DRUG SCREEN TRIAGE PANEL (06/13/2011 5:10 PM NEEDLE BAR MOLDER) [facility] Phencyclidine Screen Urine NOT DETECTED 25 ng/dl [facility] Benzodiazepines Screen Urine NOT DETECTED 300 ng/ml [facility] Cocaine Screen Urine NOT DETECTED 300 ng/ml [facility] Amphetamines Screen Urine NOT DETECTED 1000 ng/ml [facility] Cannabinoids Screen Urine NOT DETECTED 50 ng/ml [facility] Opiate Screen Urine NOT DETECTED 300 ng/ml [facility] Barbiturates Screen Urine NOT DETECTED 300 ng/ml [facility] URINE / Unknown 06/13/2011 5 :10 PM NEEDLE BAR MOLDER 06/13/2011 5:43 PM NEEDLE BAR MOLDER Farideh Brown MD LAB - URINE CHEMISTR Y ORDERABLES Performing Organization Address [facility] Co de Phone Number [facility] [address] [place] [address] * (ABNORMAL) URINALYSIS ROUTINE W/REFLEX TO CULTURE (06/13/2011 4:00 PM NEEDLE BAR MOLDER) [facility] Source Clean Catch [facility] Color UA Yellow [facility] Character UA Clear [facility] Glucose UA NEGATIVE NEGATIVE mg/dl [facility] Bilirubin UA NEGATIVE NEGATIVE [facility] Ketone UA >=80(H) NEGATIVE mg/dl [facility] Specific Raymond UA 1.010 1.003 - 1.030 [facility] Blood UA NEGATIVE NEGATIVE [facility] pH UA 6.5 5.0 - 9.0 [facility] Protein UA NEGATIVE NEGATIVE-TR CARMINA mg/dl [facility] Urobilinogen UA 0.2 0.2 - 1.0 Remy Units/dl [facility] Nitrite UA NEGATIVE NEGATIVE [facility] Leukocyte UA MODERATE(H) NEGATIVE [facility] WBC UA 7-15(H) 0 - 2 HPF [facility] RBC UA None Seen None Seen HPF [facility] Epithelial Cell UA 4-5 Squamous None Seen HPF [facility] Mucus UA Moderate(H) [facility] Bacteria UA Few(H) None Seen [facility] Urine Culture Reflexed to culture [facility] Urine specimen (specimen) URINE SPECIMEN OBTAINED BY CLEAN CATCH PROCEDURE / Unknown 06/13/2011 4:00 PM NEEDLE BAR MOLDER 06/13/2011 4:33 PM NEEDLE BAR MOLDER Farideh Brown MD LAB - URINALYSIS ORD ERABLES Performing Organization Address [facility] [place]/[facility] Co de Phone Number [facility] [address] [place] [phone] * CULTURE URINE (06/13/2011 4:00 PM NEEDLE BAR MOLDER) Result [facility] Comment: Final CULTURE >100,000 CFU/mL urogenital/skin nena URINE SPECIMEN OBTAINED BY CLEAN CATCH PROCEDURE / Unknown 06/13/2011 4:00 PM NEEDLE BAR MOLDER 06/13/2011 5:24 PM NEEDLE BAR MOLDER Narrative Resulting Agency Comment Performed By [facility] [address] Bridget Haji MD LAB - MICROBIO LOGY ORDERABLES Performing Organization Address [facility] [place]/[facility] de Phone Number [facility] [address] [place] [phone] * TYPE + SCREEN PANEL (06/13/2011 3:23 PM NEEDLE BAR MOLDER) ABO Rh AB Pos SEE BELOW [facility] Comment: Weak D testing is not performed at [facility] Antibody Screen Neg [facility] Previous History Check Done No historical blood type. Blood type confirmation needed prior to transfusion. [facility] Miscellaneous samples (specimen) BLOOD SPECIMEN / Unknown 06/13/2011 3:23 PM NEEDLE BAR MOLDER 06/13/2011 3:43 PM NEEDLE BAR MOLDER Farideh Brown MD LAB - BLOOD BANK ORD ERABLES Performing Organization Address [facility] [place]/[facility] Co de Phone Number [facility] [address] [place] [phone] * (ABNORMAL) CBC W AUTO DIFFERENTIAL (06/13/2011 3:23 PM NEEDLE BAR MOLDER) WBC 18.8(H) 4.0 - 10.0 K/CUMM [facility] RBC 3.28(L) 3.80 - 5.80 M/CUMM [facility] Hemoglobin 8.8(L) 12.0 - 16.0 gm/dL [facility] Hematocrit 27.3(L) 37.0 - 47.0 % [facility] MCV 83.2 80.0 - 100.0 fl [facility] MCH 26.8 26.0 - 34.0 pg [facility] MCHC 32.2 31.0 - 37.0 gm/dL [facility] Platelet Count 246 150 - 400 K/[facility] RDW 13.2 11.5 - 14.5 % [facility] Granulocytes % 83.7(H) 50 - 70 % [facility] Lymphocytes % 4.9(L) 20 - 40 % [facility] Monocytes % 10.3 0 - 12 % [facility] Eosinophils % 0.1 0 - 5 % [facility] Basophils % 0.2 0 - 2 % [facility] Granulocytes Absolute 15.77(H) 2.00 - 7.00 x1000/cmm [facility] Lymphocytes Absolute 0.93 0.80 - 4.00 x1000/cmm [facility] Monocytes Absolute 1.94(H) 0.00 - 1.20 x1000/cmm [facility] Eosinophils Absolute 0.02 0.00 - 0.50 x1000/cmm [facility] Basophils Absolute 0.03 0.00 - 0.20 x1000/cmm [facility] Blood specimen (specimen) BLOOD SPECIMEN / Unknown 06/13/2011 3:23 PM NEEDLE BAR MOLDER 06/13/2011 3:43 PM NEEDLE BAR MOLDER Farideh Brown MD LAB - HEMATOLOGY ORD ERABLES Performing Organization Address City/State/[facility] Co de Phone Number [facility] [address] [place] [address] * (ABNORMAL) COMPREHENSIVE METABOLIC PANEL (06/13/2011 3:23 PM NEEDLE BAR MOLDER) Sodium 138 136 - 145 mmol/L [facility] Potassium 3.4(L) 3.5 - 5.1 mmol/L [facility] Chloride 105 98 - 107 mmol/L [facility] BUN 5(L) 7 - 21.0 mg/dl [facility] Creatinine 0.44(L) 0.5 - 1.3 mg/dl [facility] Glucose 78 65 - 105 mg/dl [facility] Calcium 8.9 8.5 - 10.1 mg/dl [facility] Alkaline Phosphatase 123 38 - 126 U/L [facility] AST 22 5.0 - 40 U/L [facility] Bilirubin Total 0.2 0.2 - 1.0 mg/dl [facility] Protein Total 6.7 6.4 - 8.2 gm/dl [facility] Albumin 2.9(L) 3.4 - 5.0 gm/dl [facility] CO2 20(L) 22 - 30 mmol/L [facility] ALT 22 12.0 - 78.0 U/L [facility] eGFR by MDRD >60 >60 mL/min/1.7 3m2 [facility] Comment eGFR [facility] Comment: The eGFR does not apply to patients who are younger than 18 or older than 70. Blood specimen (specimen) BLOOD SPECIMEN / Unknown 06/13/2011 3:23 PM NEEDLE BAR MOLDER 06/13/2011 3:43 PM NEEDLE BAR MOLDER Farideh Brown MD LAB - CHEMISTRY [facility] Organization Address City/State/[facility] Co de Phone Number [facility] [address] [place] [address] Care Teams Perianesthesia Manager Relationship Specialty Start Date End Date Bridget Haji MD [address] [phone] PCP - General 01/15/18
--- OUTSIDE RECORDS SUMMARY | 2024-10-07 08:37 | XMS_ITS | Referral Summary ---
Author Organization [facility] Address [address] [place] [address] Care Team Providers Care Data Governance Consultant Name Role Phone Bridget Haji MD Primary Care Provider Source Comments [facility],non-owned Affiliates and Associated Physician Practices is amultiple site organization consisting of ambulatory clinics and hospital sitesin [place], [place], [place] and [place]. This disclosure is being madepursuant to the Care Everywhere program and may not contain all information available regarding this patient. Last updated 18.[facility] Allergies Active Allergy Reactions Criticality Noted Date Comments Penicillins Swelling 06/13/2011 Medications * Be aware that medications may not be up to date on this document. Alwaysverify current medications with the patient. Medication Sig Dispensed Refills Start Date End Date Status Vit-Fe Fumarate-FA ( VITAMIN) 28-0.8 MG tablet Take 1 Tab by mouth once daily. Active ferrous gluconate 324 MG tablet Take 324 mg by mouth 2 times daily. Active NIFEdipine (PROCARDIA) 20 MG capsule Take 1 Cap by mouth every 6 hours. 90 2 06/14/2011 Active Active Problems Problem Noted Date Diagnosed Date Supervision of normal 06/13/2011 Overview (06/13/2011): Dating by L=13w per ACOG AB+/I/-/-, HIV NR neg QS GCT 129 GBS pending Anemia 06/13/2011 Overview (06/13/2011): Currently taking BID iron H/O: 1 miscarriage 06/13/2011 Overview (06/13/2011): No D&C. In 2009. UTI (urinary tract infection) 06/13/2011 Overview (06/13/2011): Urine culture pending Immunizations Name Administration Dates Next Due INFLUENZA VACCINE 06/14/2011 Social History Tobacco Use Types Packs/Day Years [...] Comments Blood Pressure 129/61 06/14/2011 11:14 AM SUB ARC OPERATOR Pulse 116 06/13/2011 8:45 PM SUB ARC OPERATOR Temperature 35.8 C (96.5 F) 06/14/2011 7:25 AM SUB ARC OPERATOR Respiratory Rate 18 06/14/2011 7:25 AM SUB ARC OPERATOR Oxygen Saturation - - Inhaled Oxygen Concentration - - Weight 68 kg (150 lb) 06/13/2011 3:25 PM SUB ARC OPERATOR Height 160 cm (5' 3 ) 06/13/2011 3:25 PM SUB ARC OPERATOR Body Mass Index 26.57 06/13/2011 3:25 PM SUB ARC OPERATOR Plan of Treatment Not on file Advance Directives * FULL RESUSCITATION (Latest Code Status on File) Date Activated Date Inactivated Comments 06/13/2011 4:49 PM 06/15/2011 1:40 AM Care Teams Data Governance Consultant Relationship Specialty Start Date End Date Bridget Haji MD [address] [phone] [facility] - General 01/15/18
--- OUTSIDE RECORDS SUMMARY | 2024-10-07 08:37 | XMS_ITS | Data Portability ---
Author Organization JARED Veena VELARDE Address [address] [facility] [place] [address] Care Team Providers Care Nurse Aide Name Role Phone HAWK FORMAN Primary Care Provider Unavail able Assessment Encounter Date Assessment Date Assessment LastModified by Organization Details LastModified Time 06/11/2015 06/11/2015 Assessment: 25 yo P1 for routine senior compensation consultant visit Plan Pelvic US for location of IUD Counseled regarding prevention of STD's Counseled regarding contraceptive options Advised avoidance of tobacco, alcohol, and drugs BSE reviewed and recommended. [email or web address] Not available 06/11/2015 20:32:45 Plan of Treatment Reminders Order Date Submit Date Provider Last Modified By Organization Details Last Modified Time Details Appointments None record ed. Lab TSH, ultra- sensit chris, serum 2023 [facility], [address] [place] [address], [address], 4 06:20:38 HbA1c (hemog lobin A1c), blood 2023 024 [facility], [address] [facility] [address], [address], 4 06:20:39 lipid panel, serum 2023 024 [facility], [address] [facility], [facility] 2, [place], [address], 4 06:20:35 CMP, serum or plasma 2023 024 [facility], [address] [place] [address] 2, [place], [address], 4 06:20:36 bacter ial vagino sis + vagini tis panel, vagina l 2014 015 [place] [facility], [address] [facility], [address], [place], [address], 5 12:05:18 Referral podiat rist referr al 2023 024 nigel Dunn DPM, [address] [facility], [facility] 2, [place], [address], 5 16:27:14 plasti c surgeo n referr al 2020 021 [email or web address] Alec Whiteside MD, [address] [place], [address], 1 16:03:16 Procedures None record ed. Surgeries None record ed. Imaging ultras ound, comple te pelvic 2014 015 [place] Nate Altamirano (Radiology), [address] [place], [address], 5 15:02:11 Medication Orders sertra line 50 mg tablet 2023 024 [id number], [address] [place], [address], 4 17:38:22 naltre xone 50 mg tablet 2023 024 [id number], [address], [place], [place], [id number], 4 17:37:09 buprop ion HCl XL 150 mg 24 hr tablet , extend ed releas e 2023 024 [facility] #[id number], [address], [place], [place], [id number], 17:37:07 Patient TargetsNo targets recorded. Patient Instructions Encounter Date Encounter Id Patient Instructions Last Modified By Organization Details Last Modified Time 06/11/2015 [id number] Patient was informed that the IUD string was not located, as such an ultrasound would be needed to rule out displaced IUD. [email or web address] Not available 06/11/2015 20:18:27 11/06/2020 [id number] skin lesions: ca re instructions [email or web address] Not available 11/06/2020 11:53:56 05/28/2024 [id number] A healthy lifestyle: care instructions [email or web address] Not available 05/28/2024 10:39:37 07/11/2024 [id number] Attending Physician Attestation I did not personally see or examine the patient with the resident. I was physically present to provide indirect supervision through entire encounter. I have reviewed the documentation and agree with the history, physical findings, work-up, and medical decision making as recorded. Shabnam Brian MD [email or web address] Not available 07/11/2024 17:41:41 Reason for Referral Plastic Surgeon Referral for Skin lesion Referring Physician: Elizabeth García, Internal Medicine, Encounter Date: 11/06/2020 Diamond Cutter Referral for Frac ture of distal end of fibula Referring Physician: Cricket Mukherjee, Access Services Representative, Encounter Date: 07/11/2024 Results Created Date Observation Date Name Description Value Unit Range Abnormal Flag Note LastModifiedBy Organization Detail LastModifiedTime 05/28/2005/29/2024 LIPID PANEL cholesterol, total 166 mg/dL 100-19 9 Not Available [facility] ([facility]) [address] [facility], [place], [address], 05/29/2024 06:20:35 05/28/20 24 05/29/2024 LIPID PANEL triglyceride s 84 mg/dL 0-149 Not Available [facility] ([facility]) [address] [facility], [place], [address], 05/29/2024 06:20:35 05/28/2016 0605/29/2024 LIPID PANEL HDL cholesterol 45 mg/dL >39 Not Available [facility] ([facility]) [address] [place], [address], 05/29/2024 06:20:35 05/28/20 24 05/29/2024 LIPID PANEL VLDL cholesterol yan 16 mg/dL 5-40 Not Available [facility] ([facility]) [address] [place], [address], 05/29/2024 06:20:35 05/28/20 24 05/29/2024 LIPID PANEL LDL chol calc ([facility]) 105 mg/dL 0-99 above high normal Not Available [facility] ([facility]) [address] [place], [address], 05/29/2024 06:20:35 05/28/20 24 05/29/2024 COMP. METAB OLIC PANEL (14) glucose 68 mg/dL 70-99 below low normal Not Available [facility] ([facility]) [address] [place], [address], 05/29/2024 06:20:36 05/28/20 24 05/29/2024 COMP. METAB OLIC PANEL (14) BUN 10 mg/dL 6-20 Not Available [facility] ([facility]) [address] [place], [address], 05/29/2024 06:20:36 05/28/20 24 05/29/2024 COMP. METAB OLIC PANEL (14) creatinine 0.70 mg/dL 0.57-1 .00 Not Available [facility] ([facility]) [address] [place], [address], 05/29/2024 06:20:36 05/28/20 24 05/29/2024 COMP. METAB OLIC PANEL (14) eGFR 117 mL/mi n/1.7 3 >59 Not Available [facility] ([facility]) [address] [place], [address], 05/29/2024 06:20:36 05/28/20 24 05/29/2024 COMP. METAB OLIC PANEL (14) BUN/creatini ne ratio 14 9-23 Not Available [facility] ([facility]) [address] [place], [address], 05/29/2024 06:20:36 05/28/20 24 05/29/2024 COMP. METAB OLIC PANEL (14) sodium 141 mmol/ L 134-14 4 Not Available [facility] ([facility]) [address] [place], [address], 05/29/2024 06:20:36 05/28/20 24 05/29/2024 COMP. METAB OLIC PANEL (14) potassium 4.3 mmol/ L 3.5-5. 2 Not Available [facility] ([facility]) [address] [facility] [place], [address], 05/29/2024 06:20:36 05/28/20 24 05/29/2024 COMP. METAB OLIC PANEL (14) chloride 104 mmol/ L 96-106 Not Available [facility] ([facility]) [address] [facility] [place], [address], 05/29/2024 06:20:36 05/28/20 24 05/29/2024 COMP. METAB OLIC PANEL (14) carbon dioxide, total 24 mmol/ L 20-29 Not Available [facility] ([facility]) [address] [facility] [place], [address], 05/29/2024 06:20:36 05/28/20 24 05/29/2024 COMP. METAB OLIC PANEL (14) calcium 9.4 mg/dL 8.7-10 .2 Not Available [facility] ([facility]) [address] [facility] [place], [address], 05/29/2024 06:20:36 05/28/20 24 05/29/2024 COMP. METAB OLIC PANEL (14) protein, total 6.8 g/dL 6.0-8. 5 Not Available [facility] ([facility]) [address] [facility], [place], [address], 05/29/2024 06:20:36 05/28/20 24 05/29/2024 COMP. METAB OLIC PANEL (14) albumin 4.4 g/dL 3.9-4. 9 Not Available [facility] ([facility]) [address] [facility], [place], [address], 05/29/2024 06:20:36 05/28/20 24 05/29/2024 COMP. METAB OLIC PANEL (14) globulin, total 2.4 g/dL 1.5-4. 5 Not Available [facility] ([facility]) [address] [facility], [place], [address], 05/29/2024 06:20:36 05/28/20 24 05/29/2024 COMP. METAB OLIC PANEL (14) bilirubin, total <0.2 mg/dL 0.0-1. 2 Not Available [facility] ([facility]) [address] [facility], [place], [address], 05/29/2024 06:20:36 05/28/20 24 05/29/2024 COMP. METAB OLIC PANEL (14) alkaline phosphatase 96 IU/L 44-121 Not Available [facility] ([facility]) [address] [facility], [place], [address], 05/29/2024 06:20:36 05/28/20 24 05/29/2024 COMP. METAB OLIC PANEL (14) AST (SGOT) 21 IU/L 0-40 Not Available [facility] ([facility]) [address] [facility], [place], [address], 05/29/2024 06:20:36 05/28/20 24 05/29/2024 COMP. METAB OLIC PANEL (14) ALT (SGPT) 16 IU/L 0-32 Not Available [facility] ([facility]) [address] [facility], [place], [address], 05/29/2024 06:20:36 05/28/20 24 05/29/2024 TSH RFX ON ABNOR MAL TO FREE T4 TSH 2.850 uIU/m L 0.450- 4.500 Not Available [facility] ([facility]) [address] [facility], [place], [address], 05/29/2024 06:20:38 05/28/20 24 05/28/2024 HEMOG LOBIN A1C hemoglobin A1C 5.5 % 4.8-5. 6 Predi abete s: 5.7 - 6.4 Diabe fan: >6.4 Glyce jacqueline contr ol for adult s with diabe fan: <7.0 Not Available [facility] ([facility]) [address] [facility], [place], [address], 05/29/2024 06:20:39 07/10/20 15 07/09/2015 ultra sound , compl ete pelvi c No observ ation record ed. [email or web address] [address], [place], [address], 07/15/2015 09:42:13 Result Notes None recorded. Problems Name Problem SNOMED Code Status Onset Date Resolution Date Notes Provider Name and Address Organization Details Recorded Time Overweight 386590194 Active 2023 Hawk Forman MD Attn: Accounting ,[address] [facility], [place], [address] , [place] [facility] 4 01:32:20 Generalized anxiety disorder 64693435 Active 2023 Hawk Forman MD Attn: Accounting ,[address] [facility], [place], [address] , [place] [facility] 4 01:32:22 Chronic back pain 798079105 Active 2023 Hawk Forman MD Attn: Accounting ,[address] [facility], [place], [address] , [place] [facility] 4 01:32:25 Fracture of distal end of fibula 394334734 Active 2023 Cricket Mukherjee MD Attn: Accounting ,[address] [facility], [place], [address] , [place] [facility] 4 17:36:53 Urinary tract infectious disease 48435018 Active Oumou Bellamy MA null, [place] - [facility] 5 16:32:12 Problem Notes None recorded. Procedures Surgical History Date Name Laterality Status Provider Name and Address Organization Details Recorded Time 03/15/2020 Date of Last Pap Smear completed Ed Lynch MA [place] - [facility] 11/06/2020 11:29:54 Imaging Results Imaging Date Name Status LastModified by Organiz ation Details LastModified Time 07/09/2015 ultrasound, complete pelvic completed [address], [address], 07/15/2015 09:42:13 Procedure Notes None recorded. Medical Equipment None Reported. Allergies Allergen ID Allergen Name Allergen Category Reaction Reaction Severity Criticality Documentation Date Start Date Code Code System Note Provider Name and Address Organization Details Recorded Time 830877 Product containin g penicilli n (product) medicatio n rash Not available Not available 11/06/2020 54723 8001 SNOMED Not Available Not Available Not Available Medications Name Sig Start Date Stop Date Status Note LastModified by Organization Details LastModified Time azithromyc in 250 mg tablet TAKE 2 TABLETS BY MOUTH TODAY, THEN TAKE 1 TABLET DAILY FOR 4 DAYS DIRECTED 05/28 completed Not Available Not Available Not Available ofloxacin 0.3 % eye drops PUT 2 DROPS INTO AFFECTED EYE(S) EVERY 6HOURS FOR 5 DAYS 05/28 completed Not Available Not Available Not Available naltrexone 50 mg tablet TAKE 1 TABLET BY MOUTH EVERY DAY IN THE MORNING 07/11 completed Not Available Not Available Not Available prednisone 20 mg tablet TK 2 TS PO D 11/06 completed Not Available Not Available Not Available sertraline 100 mg tablet TK 1 T PO D 11/06 completed Not Available Not Available Not Available ciprofloxa savanna 500 mg tablet Take 1 tablet twice a day by oral route as directed for 3 days. 11/06 completed Not Available Not Available Not Available lamotrigin e 25 mg tablet TAKE 1 TABLET BY MOUTH DAILY 11/06 completed Not Available Not Available Not Available meloxicam 7.5 mg tablet active Not Available Not Available Not Available sertraline 50 mg tablet Take 1 tablet every day by oral route. 2023 active Not Available Not Available Not Avai lable hydrocorti sone 1 % topical cream with perineal applicator 1 APPLIC TOPICALL Y THREE TIMES A DAY NEEDED FOR ITCHING 05/28 completed Not Available Not Available Not Available bupropion HCl XL 150 mg 24 hr tablet, extended release TAKE 1 TABLET BY MOUTH EVERY DAY IN THE MORNING 07/11 completed Not Available Not Available Not Available nitrofuran toin monohydrat e/macrocry stals 100 mg capsule TAKE 1 CAPSULE BY MOUTH TWICE A DAY FOR 7 DAYS 05/28 completed Not Available Not Available Not Available hydrocodon e 5 mg-acetami nophen 300 mg tablet 11/06 completed Not Available Not Available Not Available Zepbound 2.5 mg/0.5 mL subcutaneo us pen injector Inject 0.5 mL every week by subcutan eous route for 28 days, for weight loss. 07/11 completed Not taking due to insuran ce. Not Available Not Available Not Available Vitals Date Recorded Body height Body mass index (BMI) Body weight Body temperature Oxygen saturation Oxygen saturation in Arterial blood by Pulse oximetry Heart rate Systolic blood pressure Diastolic blood pressure Provider Name and Address Organization Details Last Updated DateTime 1 161.93 cm 25.1 kg/m2 07138.3 2 g 98.1 [degF] 100 % 100 % 84 /min 102 mm[Hg] 60 mm[Hg] Ed Lynch MA [place] [facility] 1 11:35:17 Date Recorded Body weight Body height Body temperature Heart rate Body mass index (BMI) Systolic blood pressure Diastolic blood pressure Provider Name and Address Organization Details Last Updated DateTime 5 37847.9 6995 g 160.02 cm 98.2 [degF] 62 /min 23.9 kg/m2 114 mm[Hg] 58 mm[Hg] Alyson Quiles MA [facility] 5 11:38:08 Date Recorded Body height Body mass index (BMI) Body weight Heart rate Respiratory rate Body temperature Systolic blood pressure Diastolic blood pressure Provider Name and Address Organization Details Last Updated DateTime 4 162.56 cm 29.6 kg/m2 38592.9 4 g 84 /min 18 /min 98.3 [degF] 110 mm[Hg] 74 mm[Hg] Jennifer Gamboa MA [facility] 4 09:43:34 Date Recorded Body height Body mass index (BMI) Body weight Heart rate Oxygen saturation Oxygen saturation in Arterial blood by Pulse oximetry Body temperature Respiratory rate Systolic blood pressure Diastolic blood pressure Provider Name and Address Organization Details Last Updated DateTime 4 162.56 cm 29.7 kg/m2 15762.1 2 g 98 /min 99 % 99 % 98 [degF] 18 /min 115 mm[Hg] 76 mm[Hg] Melissa Kramer [facility] 4 17:12:12 Social History Question Answer Notes LastModified by Organizat ion Details LastModified Time Tobacco Smoking Status Never Smoker Ed Lynch MA [facility], [facility] 11/06/2020 11:29:27 What Is Your Level Of Alcohol Consumption? None Information not available 11/06/2020 What Was The Date Of Your Most Recent Tobacco Screening? 07/11/2024 Information not available 07/11/2024 Do You Use Any Illicit Or Recreational Drugs? No Information not available 05/28/2024 Has Tobacco Cessation Counseling Been Provided? Yes Information not available 05/28/2024 On What Date Was Tobacco Cessation Counseling Provided? 07/11/2024 Information not available 07/11/2024 Do You Or Have You Ever Used Any Other Forms Of Tobacco Or Nicotine? No Information not available 11/06/2020 Sex: Female Functional Status None recorded. Mental Status None recorded. Family History Nothing Reported. Medical History No medical history recorded. Gynecological History Statement/Question Response Abnormal Pap N Date of LMP 06/23/2024 Menses Monthly Y Date of Last Pap Smear 03/15/2020 Duration of Flow (days) 5 LMP Approximate Obstetrics History GPAL:G 2 P 1 0 0 1 Type Value Full Term 1 Living 1 Total 2 Past Encounters Encounter ID Performer Location Encounter Start Date Encounter Closed Date Diagnosis/Indication Diagnosis SNOMED-CT Code Diagnosis ICD10 Code Diagnosis Note [id number] MD Nate Oj[facility] ([facility]) [address] [facility] [address] [place] [address] 06/11/2015 11:18:51 06/12/2015 09:40:16 Family planning surveillance 184027723 Z30.09 Venereal d isease screening 792218585 Z11.3 [id number] Elizabeth García MD [facility] (Adult Med) [address] [place] [address] 11/06/2020 11:07:08 11/09/2020 12:41:14 Skin lesion 27112673 L98.9 One locates on the front neck about 1 cm in size, light pink in color, papilla in shape, another one locates on the left temporal scalp near the hair line about half cm in size, similar color and shape but smaller. Discussed with patient, she agreed for the referral. [id number] MD Nate Billings 14 IM [address] [facility] [address] [place] [address] 05/28/2024 09:26:23 06/07/2024 15:25:34 Overweight 972543504 E66.3 Chronic, uncontroll ed- Will attempt generic contrave for possible coverage Generalize d anxiety disorder 09484937 F41.1 Chronic, uncontroll ed- Will provide generic contrave (buproprio n component) to address anxiety Chronic back pain 813383 002 G89.29 Chronic, uncontroll edPt taking NSAIDs consistent ly for back pain [id number] MD Nate THOMPSON 14 IM [address] [facility] [address] [place] [address] 07/11/2024 16:50:01 07/19/2024 15:25:22 Generalized anxiety disorder 30410006 F41.1 did not tolerate wellbutrin return to sertraline 50 mg po odRTC 6 weeks Fracture o f distal end of fibula 912223182 S82.891A mild chip fracture to the lateral distal fibula per Dr. Dunn's note 07/11will have pt sign releasewil l refer to podiatry Health Concerns Section Related Observation LastModified by Organization Detai ls LastModified Time None Recorded Concern Status LastModified by Organization Details LastModified Time None Recorded Advance Directives Directive None Recorded Payers Encounter Date Sequence Insurance Name Policy Number Policy Walls Covered Member ID Walls Member ID Guarantor Name 06/11/2015 1 [place] [id number] Radhapaula Cespedes [id number] Ken Cespedes 06/11/2015 1 [place] [facility] Ken Cespedes [id number] Ken Cespedes 11/06/2020 1 [facility] (MEDICAID HMO) [id number] Toddanthonybatool Cespedes [id number] Toddanthonybatool Cespedes 05/28/2024 1 [facility] Toddanthonybatool Cespedes [id number] anthonybatool Cespedes 07/11/2024 1 [employer] [id number] meek Cespedes Notes Date Note Type Note Provider Name and Address Organization Details Recorded Time 11/06/2020 text/html Office visit, ne w patient, allergic to penicillins. 1 skin lesions . one on the front neck one on the left temporal scalp. Elizabeth García MD Attn: Accounting,[address] [place], [address], [facility] 11/06/2020 11:54:34 05/28/2024 text/html 34 yo who presen ts today to discuss weight loss- PT reports that she has been working out- Practicing calorie restriction- Pt presents with desire to receive a medication to assist her into her weight loss goal- 172- Goal: 125- Pt mentioned a 4 mile walking goal - Pt states that she has anxiety that has caused her to seclude herself recently- Isolating- Pt was previously on sertraline, however felt it made her more flushed- Previously on Fluoxetine, however did not continue - Single,- Messy divorce- 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 She reports on Monday she was at a [employer] and was jumping and landed on her right foot, avulsing her R foot. She immediately felt pain. She reports going to [place] urgent care and had an X Ray which reportedly showed a fracture vs ligament tear. She saw Dr. Dunn, podiatry, and per his note the XR showed mild chip fracture to the lateral distal fibula . She is requesting a podiatry referral as that is how her insurance will cover it. She otherwise has no concerns today. She also reports being prescribed of wellbutrin 150 mg po od which she did not tolerate, and she is requesting today to go back to the sertraline 50 mg po od. She states it was too strong and made her feel very uncomfortable. SHABNAM BRIAN MD Attn: Accounting,[address] [facility], [place], [address], [facility] - [facility] 07/18/2024 22:52:32 OBGyn Episode No OBEpisode recorded.
--- OUTSIDE RECORDS SUMMARY | 2024-10-07 08:37 | XMS_ITS | Clinical Summary ---
Author Organization [facility] Address [address] [place] [address] Care Team Providers Care Mri Assistant Name Role Phone Bridget Haji MD Primary Care Provider Source Comments [facility],non-owned Affiliates and Associated Physician Practices is amultiple site organization consisting of ambulatory clinics and hospital sitesin [place], [place], [place] and [place]. This disclosure is being madepursuant to the Care Everywhere program and may not contain all information available regarding this patient. Last updated 18.[facility] Allergies Active Allergy Reactions Criticality Noted Date [...] Administration Dates Next Due INFLUENZA VACCINE 06/14/2011 Family History Medical History Relation Name Comments Cancer - Ovarian Maternal Grandmother Breast Cancer after age 50 or unknown Paternal Grandmo ther Diabetes Paternal Grandmother Relation Name Status Comments Maternal Grandmother Paternal Grandmother Social History Tobacco Use Types Packs/Day Years [...] Comments Blood Pressure 129/61 06/14/2011 11:14 AM HAND BUFFER Pulse 116 06/13/2011 8:45 PM HAND BUFFER Temperature 35.8 C (96.5 F) 06/14/2011 7:25 AM HAND BUFFER Respiratory Rate 18 06/14/2011 7:25 AM HAND BUFFER Oxygen Saturation - - Inhaled Oxygen Concentration - - Weight 68 kg (150 lb) 06/13/2011 3:25 PM HAND BUFFER Height 160 cm (5' 3 ) 06/13/2011 3:25 PM HAND BUFFER Body Mass Index 26.57 06/13/2011 3:25 PM HAND BUFFER Plan of Treatment Health Maintenance Due Date Last Done Comments PAP SMEAR 1991 HIV SCREENING 2006 HEPATITIS C SCREENING 03/13/2009 DTAP/TDAP/TD VACCINES (1 - Tdap) 2010 HEPATITIS B VACCINE (1 of 3 - 19+ 3-dose series) 2010 COVID-19 VACCINE ( - 2023-2 5 season) 2024 INFLUENZA VACCINE (#1) 2024 06/14/2011 DEPRESSION SCREENING 07/24/2024 ZOSTER VACCINE (1 of 2) 2041 HIB VACCINE Aged Out No longer eligi ble based on patient's age to complete this topic HPV VACCINE Aged Out No longer eligi ble based on patient's age to complete this topic MENINGOCOCCAL (Group B) VACC INE SHARED DECISION-MAKING Aged Out No longer eligibl e based on patient's age to complete this topic MENINGOCOCCAL GROUPS A/C/Y/W VACCINE Aged Out No longer eligible b ased on patient's age to complete this topic PNEUMOCOCCAL VACCINE Aged Out No long er eligible based on patient's age to complete this topic Advance Directives * FULL RESUSCITATION (Latest Code Status on File) Date Activated Date Inactivated Comments 06/13/2011 4:49 PM 06/15/2011 1:40 AM Care Teams Mri Assistant Relationship Specialty Start Date End Date Bridget Haji MD [address] [address] PCP - General 01/15/18
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
--- OUTSIDE RECORDS SUMMARY | 2024-10-07 08:37 | XMS_ITS | Clinical Summary ---
Author Organization [facility] Address [address] [place] [address] Phone Care Team Providers Care Waste Disposal Plant Operator Name Role Phone TAMMY LEI, MICHELLE Lakia Unavailable [phone] Reason for Visit and Chief Complaint [Patient Encounter] Problems Includes: Problems addressed during this encounter and other active Problems All Visits Onset Date Resolved Date Provider Condition S tatus Nephrolithiasis 06/27/2018 JOSY LAWSON RN Vasquez P BC Active Last Documented On 8 10:06AM ; [facility] Depression 11/24/2016 JOSY LAWSON RN DIANE Active Last Documented On 7 2:39PM ; [facility] Note: Unchanged Type AB blood, Rh positive 07/12/2016 JOSY SEXTON RN DIANE Active Last Documented On 6 2:16PM ; [facility] Plan of Treatment No Plan of Treatment Recorded Assessments Includes: Assessments from this encounter No Assessments Recorded Medical Equipment - Implanted Devices Includes: Current Devices No Medical Equipment Recorded Medications Includes: Medications discussed during this encounter and other current Medications Current Medications (continue as prescribed) Mirena (52 MG) 20 MCG/DAY Intrauterine Intrauterine de vice 02/09/2023 Provider: Diagnosis: Last Documented On 05/25/2023 3:02PM By Machelle Augustine ; [facility] Medications Administered Includes: Administered Medications from this encounter No Administered Medications Recorded Results Includes: Results discussed during this encounter No Results Recorded For Specified Dates History of Present Illness Includes: History of Present Illness from this encounter No History of Present Illness Recorded Social History No Social History Recorded - Smoking Status Unknown Medical History Includes: Medical History addressed during this encounter No Medical History Recorded Family History Includes: Family History addressed during this encounter No Family History Recorded Review of Systems Includes: Review of Systems from this encounter No Review of Systems Recorded Mental Status Includes: Mental Status from this encounter No Mental Status Recorded Functional Status Includes: Functional Status from this encounter No Functional Status Recorded Physical Exam Includes: Physical Exam from this encounter No Physical Exam Recorded Allergies Includes: Active Allergies Substance Type Reaction Onset Date Resolved Date Statu s SEASONAL Allergy 01/20/2016 Active Last Documented On 3 3:01PM ; [facility] Encounters Encounter Provider Location Date Check-In Time Check-Out Time Diagnosis [Patient Encounter] DAVID AHSSAN DIANE-PALMER 02/07/2020 2:22PM 11:59PM Insurance Includes: Active Insurance Policies Plan Name Member ID Group # Subscriber Relationship Effect chris Dates 1 - [facility] [id number] COBY PHAM Self Clinical Notes Includes: Clinical Notes from this encounter No Clinical Notes Recorded
--- OUTSIDE RECORDS SUMMARY | 2024-10-07 08:37 | XMS_ITS | Clinical Summary ---
Author Organization [facility] Address [address] [place] [address] Phone Care Team Providers Care Valving Machine Operator Name Role Phone TAMMY LEI, MICHELLE Dorman Unavailable [phone] Reason for Visit and Chief Complaint visit for: IUD Insertion - The Chief Complaint is: Mirena Insert. LOT: [id number] EXP: 10/2024 LMP: 02/03/2023 Problems Includes: Problems addressed during this encounter and other active Problems Current Visit Onset Date Resolved Date Provider Conditio n Status History of Allergic Rhinitis 12/23/2016 Unknown MICHELLE MUNOZ MD Resolved Last Documented On 11/09/2017 9:46AM ; [facility] Note: was Closed. History of Depression 12/23/2016 Unknown MICHELLE MUNOZ MD Resolved Last Documented On 11/09/2017 9:46AM ; [facility] Note: was Closed. 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 Past Visits Onset Date Resolved Date Provider Condition Status Nephrolithiasis 06/27/2018 JOSY LAWSON RN N P BC Active Last Documented On 8 10:06AM ; [facility] Depression 11/24/2016 JOSY LAWSON RN NP BC Active Last Documented On 7 2:39PM ; [facility] Note: Unchanged Type AB blood, Rh positive 07/12/2016 JOSY SEXTON RN DIANE Active Last Documented On 6 2:16PM ; [facility] Plan of Treatment Pending Tests Order Diagnosis Results Due Ordering Nadiya carrasco In office procedures - OB MIRENA Encounter for initial prescription of other contraceptives 02/23/23 JOSY ESCOBAR Last Documented On 3 8:27AM ; [facility] In office procedures - OB IUD Insertion Encounter for initial prescription of other contraceptives 02/23/23 JOSY ESCOBAR Last Documented On 3 8:27AM ; [facility] Assessments Includes: Assessments from this encounter Findings - [Z30.018 - Encounter for initial prescription of other contraceptives] Encounter for contraceptive surveillance, unspecified - Last Documented On 02/09/2023 8:28AM ; [facility] Medical Equipment - Implanted Devices Includes: Current Devices No Medical Equipment Recorded Medications Includes: Medications discussed during this encounter and other current Medications New / Renewed during this visit JOSY ESCOBAR on 02/09/2023 Ibuprofen 800 MG Oral Tablet Provider: JOSY ESCOBAR 7 day supply: 21 tablet, 0 refills Diagnosis: Encounter for initial prescription of other contraceptives One tablet three times a day TAKE DIRECTED W/FOOD Pharmacy: [facility], [address] - Last Documented On 3 8:38AM By JOSY VALLE ; [facility] Current Medications (continue as prescribed) Mirena (52 MG) 20 MCG/DAY Intrauterine Intrauterine de vice 02/09/2023 Provider: Diagnosis: Last Documented On 05/25/2023 3:02PM By Machelle Augustine ; [facility] Past Medications on file Sertraline HCl 100MG Oral Tablet 04/12/2018 - 04/28/2018 Provider: JOSY CHAKRABORTY Diagnosis: Major depressive disorder, recurrent, moderate One tablet daily Last Documented On 8 9:21AM By JOSY VALLE ; [facility] Sertraline HCl 50MG Oral Tablet 04/06/2018 - 04/13/2018 Provider: JOSY CHAKRABORTY Diagnosis: Major depressive disorder, recurrent, moderate 1 po q day......ed Last Documented On 8 6:29PM By MARIAH CODY ; [facility] Sertraline HCl 50MG Oral Tablet 11/21/2017 - 12/12/2017 Provider: JOSY CHAKRABORTY Diagnosis: Major depressive disorder, recurrent, moderate One tablet daily Last Documented On 8 4:09PM By JOSY VALLE ; [facility] Macrobid 100MG Oral Capsule 05/11/2017 - 05/18/2017 Pr ovider: JOSY CHAKRABORTY Diagnosis: Dysuria One tablet twice a day Last Documented On 7 3:20PM By JOSY VALLE ; [facility] Ferrous Gluconate 324 (37.5 Fe)MG Oral Tablet 04/28/2017 - 08/26/2017 Provider: JOSY CHAKRABORTY Diagnosis: Anemia complicat ing , third trimester One tablet twice a day Last Documented On 7 11:13AM By JOSY VALLE ; [facility] Plus 27-1MG Oral Tablet 11/24/2016 - 11/19/2017 Provider: JOSY CHAKRABORTY Diagnosis: Irregular menstr uation, unspecified 1 capsule daily Last Documented On 7 2:01PM By JOSY VALLE ; [facility] Terconazole 0.8 % Cream 07/08/2016 - 07/11/2016 Provid er: JOSY CHAKRABORTY Diagnosis: Acute vaginitis as directed 1 ildefonso in vagina at HS x 3 Last Documented On 6 2:30PM By JOSY VALLE ; [facility] Plus 27-1 MG Tablet 07/05/2016 - 06/30/2017 Provider: JOSY CHAKRABORTY Diagnosis: Encounter for ot h general cnsl and advice on procreation One tablet daily Last Documented On 6 4:08PM By JOSY VALLE ; [facility] Naproxen 500 MG Tablet 01/20/2016 - 01/27/2016 Provide r: JOSY CHAKRABORTY Diagnosis: Pelvic and perin eal pain One tablet twice a day ONE T AB TWICE A DAY WITH FOOD DON'T EXCEED 2 TABS IN 24 HOURS Last Documented On 6 4:17PM By JOSY VALLE ; [facility] Medications Administered Includes: Administered Medications from this encounter No Administered Medications Recorded Vital Signs Includes: Vital Signs from this encounter Vital Name 02/09/2023 08:03A Blood Pressure Sitting L 112/70 BP Cuff Size Regular Temp-Temporal 98.1 Height (in) 63 Weight (lb) 144 Body Mass Index 25.5 Body Surface Area 1.7 Last Documented: On 02/09/2023 8:07AM ; [facility] Results Includes: Results discussed during this encounter No Results Recorded For Specified Dates History of Present Illness Includes: History of Present Illness from this encounter HPI - Allergy list reviewed - Medication list reviewed Social History Description Last Updated Activities 02/09/2023 Last Documented On 3 8:28AM ; [facility] Alcohol use seldom 02/09/2023 Last Documented On 3 8:28AM ; [facility] Alcohol use: 2 drinks or less per day no ne 02/09/2023 Last Documented On 3 8:28AM ; [facility] Amount of sleep 02/09/2023 Last Documented On 3 8:28AM ; [facility] Current nonsmoker 02/09/2023 Last Documented On 3 8:28AM ; [facility] Education history 02/09/2023 Last Documented On 3 8:28AM ; [facility] Educational level 02/09/2023 Last Documented On 3 8:28AM ; [facility] Exercising regularly 02/09/2023 Last Documented On 3 8:28AM ; [facility] In monogamous relationship last coitus 1 month ago 02/09/2023 Last Documented On 3 8:28AM ; [facility] 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 02/09/2023 Last Documented On 3 8:28AM ; [facility] Marital history Single 02/09/2023 Last Documented On 3 8:28AM ; [facility] Non-smoker 02/09/2023 Last Documented On 3 8:28AM ; [facility] Not a smoker 02/09/2023 Last Documented On 3 8:28AM ; [facility] Not using drugs 02/09/2023 Last Documented On 3 8:28AM ; [facility] Personal history 02/09/2023 Last Documented On 3 8:28AM ; [facility] Sexually active 02/09/2023 Last Documented On 3 8:28AM ; [facility] Sexually active with 1 partners in the l ast year 02/09/2023 Last Documented On 3 8:28AM ; [facility] Single 02/09/2023 Last Documented On 3 8:28AM ; [facility] Smoking status : Never smoker 02/09/2023 Last Documented On 3 8:28AM ; [facility] Social history unchanged single parent n o assistance from FOB 02/09/2023 Last Documented On 3 8:28AM ; [facility] Tobacco non-user 02/09/2023 Last Documented On 3 8:28AM ; [facility] Procedures and Surgical History Includes: Procedures from this encounter Procedures Code Diagnosis Performing Provider Service L ocation Service Date insertion of intrauterine device (IUD) The uterus was sounded using sterile technique. The IUD insertion flange was placed at the appropriate position and the stain dipper was placed through the os to a depth of 7 cm, and the applicator was discharged to the first deployment german. The insertion device was advanced to the flange, and the applicator was deployed fully making sure the IUD strings were free from the stain dipper. The stain dipper was removed from the cervix and the strings were trimmed to 4-5 cm. The tenaculum was removed and the speculum removed 18262 Last Documented On 3 8:26AM ; [facility] education and instructions Last Documented On 3 8:25AM ; [facility] intrauterine device (IUD) Af ter discussing the risks and benefits of the IUD and checking for contraindications, and having the patient verbally and in writing, give consent to have the device placed, the patient was placed in the dorsal lithotomy position Last Documented On 3 8:25AM ; [facility] Patient tolerated procedure well Last Documented On 3 8:25AM ; [facility] Instructed to use non-hormonal, back-up method of control x 1 month Last Documented On 3 8:25AM ; [facility] Patient verbalizes understanding Last Documented On 3 8:25AM ; [facility] RTO in month for IUD check. Last Documented On 3 8:25AM ; [facility] Encouraged to call office with any IUD c oncerns Last Documented On 3 8:25AM ; [facility] Clinical summary provided to patient Last Documented On 3 8:25AM ; [facility] an HCG test was negative 77175 Last Documented On 3 8:25AM ; [facility] Surgical History Last Updated Surgical / procedural history Gel Breast Implants-04/202201/11/2023 Last Documented On 3 8:03AM ; [facility] Medical History Includes: Medical History addressed during this encounter Description Last Updated Contraception: uses condoms 100% 023 Last Documented On 3 8:03AM ; [facility] Last pap smear date 12/202005/25/2023 Last Documented On 3 8:03AM ; [facility] LMP: 02/03/2023 denies any unprotected Last Documented On 3 8:28AM ; [facility] Sexually active last unprotected about a month ago 01/11/2023 Last Documented On 3 8:03AM ; [facility] History of cervical Pap smear 12/2020 Last Documented On 3 8:03AM ; [facility] History of Pap smear done 12/2020 023 Last Documented On 3 8:03AM ; [facility] PRIMARY CARE PROVIDER : Dr Brownlee 0 Last Documented On 3 8:03AM ; [facility] Sexually active with 3 partners in the l ast year 10/21/2019 Last Documented On 3 8:03AM ; [facility] Vaginal delivery x 2 10/21/2019 Last Documented On 3 8:03AM ; [facility] Para 2 04/12/2018 Last Documented On 3 8:03AM ; [facility] Result: normal 11/21/2017 Last Documented On 3 8:03AM ; [facility] is breast-feeding and plans on breast feeding x 6 months. Supplemenets with formula about 1/2 of the time 08/11/2017 Last Documented On 3 8:03AM ; [facility] Baby thriving KATHI Adame 39- 1/7wks #6 12oz 08/11/2017 Last Documented On 3 8:03AM ; [facility] Depression 06/09/2017 Last Documented On 3 8:03AM ; [facility] History of allergic rhinitis Seasonal Last Documented On 3 8:03AM ; [facility] History of depression 06/09/2017 Last Documented On 3 8:03AM ; [facility] History of Gardasil 06/09/2017 Last Documented On 3 8:03AM ; [facility] History of recurrent loss (gra vid) 06/09/2017 Last Documented On 3 8:03AM ; [facility] Not taking medication for depression Last Documented On 3 8:03AM ; [facility] Aborta 2 11/24/2016 Last Documented On 3 8:03AM ; [facility] 4 11/24/2016 Last Documented On 3 8:03AM ; [facility] Family History Includes: Family History addressed during this encounter Description Last Updated Parkinsons-MGM 01/11/2023 Last Documented On 3 8:03AM ; [facility] Family history of malignant female breas t neoplasm PGM 01/11/2023 Last Documented On 3 8:03AM ; [facility] Family history of diabetes mellitus PGGM 10/21/2019 Last Documented On 3 8:03AM ; [facility] Paternal grandmother's histo ry of malignant female breast neoplasm Pat, GMA 01/20/2016 Last Documented On 3 8:03AM ; [facility] Review of Systems Includes: Review of Systems [...] Last Documented On 3 3:01PM ; [facility] Encounters Encounter Provider Location Date Check-In Time Check-Out Time Diagnosis PROCEDURE OFFICE JOSY CHAKRABORTY [facility] 02/10/20 23 8:07AM 8:27AM Encounter For Contraceptive Surveillance, Unspecified Insurance Includes: Active Insurance Policies Plan Name Member ID Group # Subscriber Relationship Effect chris Dates 1 - [facility] [id number] COBY Zuniga Clinical Notes Includes: Clinical Notes from this encounter * Progress note Date Encounter Last Documented by 02/09/2023 PROCEDURE OFFICE Last documented on 02/09/2023; 8:28 AM, JOSY ESCOBAR ; [facility] Active Problems & Conditions - F32.9 - Depression - Nephrolithiasis - Z80.3 - Paternal Grandmother's History of Breast Neoplasm Malignant Female - Pat, GMA - Z67.30 - Type AB blood, Rh positive Chief Complaint The Chief Complaint is: Mirena Insert. LOT: [id number] EXP: 10/2024 LMP: 02/03/2023. Reason For Visit Visit for: IUD Insertion. - Visit for: insertion of intrauterine device (IUD) History of Present Illness - Allergy list reviewed - Medication list reviewed Current Medication - None Past Medical/Surgical History Other: Primary Care Provider: Dr Brownlee Reported: LMP: 02/03/2023 denies any unprotected, Last pap smear date 12/2020 result: normal, and Contraception: uses condoms 100%. Medical: Depression. Surgical / Procedural: Surgical / procedural history Gel Breast Implants- 04/2022. Medications: Not taking medication for depression. Immunization History: History of Gardasil. Dietary: is breast-feeding and plans on breast feeding x 6 months. Supplemenets with formula about 1/2 of the time. : Baby thriving [facility] Nicole Adame 39- /7wks #6 12oz, 4, para 2, aborta 2, [...] no assistance from FOB. 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 Tobacco use: Current nonsmoker. Not a smoker. Non-smoker. Smoking status: Never smoker. Alcohol: Alcohol use seldom and alcohol use: 2 drinks or less per day none. Drug Use: Not using drugs. Habits: Amount of sleep. Exercising regularly. Education: Educational level. Activities: Activities. Marital: Marital history Single and single. Sexual: Sexually active. In monogamous relationship last coitus 1 month ago. Sexually active with 1 partners in the last year. Allergies - SEASONAL Family History Parkinsons-MGM Diabetes mellitus PGGM Malignant female breast neoplasm PGM Paternal grandmother's: Malignant female breast neoplasm Pat, GMA Physical Findings - Vitals taken 02/09/2023 08:03 am BP-Sitting L 112/70 mmHg BP Cuff Size Regular Temp-Temporal 98.1 F Height 63 in Weight 144 lbs Body Mass Index 25.5 kg/m2 Body Surface Area 1.7 m2 Genitalia: External: - Genitalia showed no abnormalities POST IUD INSERTION. Pelvic: Vagina: - No vaginal discharge was observed. Cervix: - Showed no lesion. - Did not demonstrate pain elicited by motion. Uterus: - Position was normal The speculum was placed intravaginally and the cervix and vaginal vault were swabbed with 10% betadine solution. A single tooth tenaculum was placed at the 12 o'clock position. - Not enlarged. - Not tender. Uterine Adnexae: - Uterine adnexa was not tender. Tests Laboratory-based Chemistry: Urine Tests: An HCG test was negative. Assessment - [Z30.018 - Encounter for initial prescription of other contraceptives] Encounter for contraceptive surveillance, unspecified Therapy - Education and instructions. - Intrauterine device (IUD) After discussing the risks and benefits of the IUD and checking for contraindications, and having the patient verbally and in writing, give consent to have the device placed, the patient was placed in the dorsal lithotomy position, insertion The uterus was sounded using sterile technique. The IUD insertion flange was placed at the appropriate position and the stain dipper was placed through the os to a depth of 7 cm, and the applicator was discharged to the first deployment german. The insertion device was advanced to the flange, and the applicator was deployed fully making sure the IUD strings were free from the stain dipper. The stain dipper was removed from the cervix and the strings were trimmed to 4-5 cm. The tenaculum was removed and the speculum removed, Patient tolerated procedure well, Instructed to use non-hormonal, back-up method of control x 1 month, Patient verbalizes understanding, RTO in month for IUD check., and Encouraged to call office with any IUD concerns. - Clinical summary provided to patient. Counseling/Education - Discussion of gynecologic procedure The post procedure complications were discussed and the patient was told to call with any problems or if major complications arise to proceed to the Emergency Department. Follow up instructions and an appointment was made. The card for the IUD was provided to the patient for medical purposes. The patient was instructed on checking monthly for IUD strings. Pt. instructed when the device should be removed, or sooner should she desire to become Pelvic pain/bleeding and infection precaution review w/all questions answered. Enc. to take analgesics as directed. All questions answered. Plan StartCited - Encounter for initial prescription of other contraceptives In office procedures/OB: MIRENA, IUD Insertion In office procedures/*Clia Waived Labs: Urine Test Ibuprofen 800 MG tablet One tablet three times a day TAKE DIRECTED W/FOOD, 7 days, 0 refills EndCited StartCited - Other PHY ORDER/COMMENT 1 month IUD check thanks EndCited Health Reminders - Assess BMI satisfied 02/09/2023. - Assess Tobacco Use satisfied 02/09/2023.
--- OUTSIDE RECORDS SUMMARY | 2024-10-07 08:43 | XMS_ITS ---
Care Plan - [facility] Created on: October 07, 2024 COBY PHAM Elliott : 1990 Sex: Female Author Organization [facility] Address [address] [place] [address] Phone Care Team Providers Care Clinic Lpn Name Role Phone TAMMY LEI, MICHELLE C Unavailable [phone]
--- OUTSIDE RECORDS SUMMARY | 2024-10-07 08:43 | XMS_ITS | Clinical Summary ---
Author Organization [facility] Address [address] [place] [address] Phone Care Team Providers Care Sommelier Name Role Phone TAMMY LEI, MICHELLE Dorman Unavailable [phone] Reason for Visit and Chief Complaint gynecologic [...] Resolved Last Documented On 11/09/2017 9:46AM ; [facility] Note: was Closed. History of Depression 12/23/2016 Unknown MICHELLE MUNOZ MD Resolved Last Documented On 11/09/2017 9:46AM ; [facility] Note: was Closed. History of Recurrent Loss (Gravid) 12/23/2016 Unknown MICHELLE MUNOZ MD Resolved Last Documented On 11/09/2017 9:46AM ; [facility] Note: was Closed. Depression 11/24/2016 JOSY Ovalle DIANE BC Active Last Documented On 11/24/2016 2:39PM ; [facility] Note: Unchanged Past Visits Onset Date Resolved Date Provider Condition Status Nephrolithiasis 06/27/2018 JOSY BARRAGAN P BC Active Last Documented On 8 10:06AM ; [facility] Type AB blood, Rh positive 07/12/2016 JOSY SEXTON RN DIANE BC Active Last Documented On 6 2:16PM ; [facility] Plan of Treatment - Clinical summary provided to patient - Last Documented On 01/18/2021 11:03AM ; [facility] PT TO CALL WITH ANY CHANGE IN STATUS ALL QUESTIONS ANSWERED WITH UNDERSTANDING VERBALIZED BY PT. - Last Documented On 01/18/2021 11:03AM ; [facility] Referrals To Diagnosis Neurologist [facility] [address] [place] [address] - Low back pain Note: dull pain w/palpation at site of epidural from 2017 delivery, rates 6 on 0-10 scale Last Documented On 2 11:12AM ; [facility] Instructions to patient Instructions for patient : B reast Self Exam discussed and technique reviewed Last Documented On 10:42AM ; [facility] Use a condom during sexual i ntercourse Last Documented On 10:42AM ; [facility] Instructed to call if excess chris bleeding or abdominal/pelvic pain Last Documented On 10:42AM ; [facility] Recommend diet and exercise at least 30 min three times per week Last Documented On 10:42AM ; [facility] Education and Decision Aids were provided during visit for: Patient Education: Daily yan cium and vitamin D Last Documented On 10:42AM ; [facility] Assessments Includes: Assessments from this encounter Findings - NORMAL FEMALE EXAM - Last Documented On 01/18/2021 11:03AM ; [facility] - Screen malignant neoplasm cervix - Last Documented On 01/18/2021 11:03AM ; [facility] Instructions Includes: Instructions from this encounter Instructions to patient Instructions for patient : B reast Self Exam discussed and technique reviewed Last Documented On 10:42AM ; [facility] Use a condom during sexual i ntercourse Last Documented On 10:42AM ; [facility] Instructed to call if excess chris bleeding or abdominal/pelvic pain Last Documented On 10:42AM ; [facility] Recommend diet and exercise at least 30 min three times per week Last Documented On 06/28/202 1 10:42AM ; [facility] Education and Decision Aids were provided during visit for: Patient Education: Daily yan cium and vitamin D Last Documented On 1 10:42AM ; [facility] Medical Equipment - Implanted Devices Includes: Current Devices No Medical Equipment Recorded Medications Includes: Medications discussed during this encounter and other current Medications Discontinued / Stopped on this date on 10/21/2019 [facility] Oral Capsule Provider: Diagnosis: Last Documented On 1 10:36AM By TRISTON SAPP LPN ; [facility] Sertraline HCl 100 MG Oral Tablet Provide r: Diagnosis: Last Documented On 1 10:36AM By TRISTON SAPP LPN ; [facility] Multi Vitamin Daily Oral Tablet Provider: Diagnosis: Last Documented On 1 10:36AM By TRISTON SAPP LPN ; [facility] Current Medications (continue as prescribed) Mirena (52 MG) 20 MCG/DAY Intrauterine Intrauterine de vice 02/09/2023 Provider: Diagnosis: Last Documented On 05/25/2023 3:02PM By Machelle Augustine ; [facility] Past Medications on file Ibuprofen 800 MG Oral Tablet 02/09/2023 - 02/16/2023 Provider: JOSY ESCOBAR Diagnosis: Encounter for in itial prescription of other contraceptives One tablet three times a day TAKE DIRECTED W/FOOD Last Documented On 3 8:38AM By JOSY VALLE ; [facility] Sertraline HCl 100MG Oral Tablet 04/12/2018 - 04/28/2018 Provider: JOSY ESCOBAR Diagnosis: Major depressive disorder, recurrent, moderate One tablet daily Last Documented On 8 9:21AM By JOSY VALLE ; [facility] Sertraline HCl 50MG Oral Tablet 04/06/2018 - 04/13/2018 Provider: JOSY CHAKRABORTY Diagnosis: Major depressive disorder, recurrent, moderate 1 po q day......ed Last Documented On 8 6:29PM By MARIAH CODY ; [facility] Sertraline HCl 50MG Oral Tablet 11/21/2017 - 12/12/2017 Provider: JOSY CHAKRABORTY Diagnosis: Major depressive disorder, recurrent, moderate One tablet daily Last Documented On 8 4:09PM By JOSY VALLE ; [facility] Macrobid 100MG Oral Capsule 05/11/2017 - 05/18/2017 Pr ovider: JOSY CHAKRABORTY Diagnosis: Dysuria One tablet twice a day Last Documented On 7 3:20PM By JOSY VALLE ; [facility] Ferrous Gluconate 324 (37.5 Fe)MG Oral Tablet 04/28/2017 - 08/26/2017 Provider: JOSY CHAKRABORTY Diagnosis: Anemia complicat ing , third trimester One tablet twice a day Last Documented On 7 11:13AM By JOSY VALLE ; [facility] Plus 27-1MG Oral Tablet 11/24/2016 - 11/19/2017 Provider: JOSY CHAKRABORTY Diagnosis: Irregular menstr uation, unspecified 1 capsule daily Last Documented On 7 2:01PM By JOSY VALLE ; [facility] Terconazole 0.8 % Cream 07/08/2016 - 07/11/2016 Provid er: JOSY CHAKRABORTY Diagnosis: Acute vaginitis as directed 1 ildefonso in vagina at HS x 3 Last Documented On 6 2:30PM By JOSY VALLE ; [facility] Plus 27-1 MG Tablet 07/05/2016 - 06/30/2017 Provider: JOSY CHAKRABORTY Diagnosis: Encounter for ot h general cnsl and advice on procreation One tablet daily Last Documented On 6 4:08PM By JOSY VALLE ; [facility] Naproxen 500 MG Tablet 01/20/2016 - 01/27/2016 Provide r: JOSY CHAKRABORTY Diagnosis: Pelvic and perin eal pain One tablet twice a day ONE T AB TWICE A DAY WITH FOOD DON'T EXCEED 2 TABS IN 24 HOURS Last Documented On 6 4:17PM By JOSY VALLE ; [facility] Medications Administered Includes: Administered Medications from this encounter No Administered Medications Recorded Vital Signs Includes: Vital Signs from this encounter Vital Name 01/18/2021 10:31A Blood Pressure Standing (mmHg) 128/64 Temp-Oral (F) 98.2 Height (in) 63 Weight (lb) 142 Body Mass Index (kg/m2) 25.2 Body Surface Area (m2) 1.7 Last Documented: On 01/18/2021 10:33A M ; [facility] Results Includes: Results discussed during this encounter No Results Recorded For Specified Dates History of Present Illness Includes: History of Present Illness from this encounter HPI - Allergy list reviewed. Social History Description Last Updated Activities 01/18/2021 Last Documented On 11:03AM ; [facility] Alcohol use seldom 01/18/2021 Last Documented On 11:03AM ; [facility] Alcohol use: 2 drinks or less per day no ne 01/18/2021 Last Documented On 11:03AM ; [facility] Amount of sleep 01/18/2021 Last Documented On 11:03AM ; [facility] Education history 01/18/2021 Last Documented On 1 11:03AM ; [facility] Educational level 01/18/2021 Last Documented On 1 11:03AM ; [facility] Exercising regularly 01/18/2021 Last Documented On 1 11:03AM ; [facility] In monogamous relationship last coitus 1 week ago 01/18/2021 Last Documented On 11:03AM ; [facility] Job change works midnights [facility] 01/18/2021 Last Documented On 1 11:03AM ; [facility] Marital history Single 01/18/2021 Last Documented On 1 11:03AM ; [facility] Non-smoker 01/18/2021 Last Documented On 1 11:03AM ; [facility] Not using drugs 01/18/2021 Last Documented On 11:03AM ; [facility] Personal history 01/18/2021 Last Documented On 1 11:03AM ; [facility] Sexually active 01/18/2021 Last Documented On 1 11:03AM ; [facility] Smoking status : Never smoker 01/18/2021 Last Documented On 1 11:03AM ; [facility] Social history unchanged single parent n o assistance from FOB 01/18/2021 Last Documented On 1 11:03AM ; [facility] Current nonsmoker 01/18/2021 Last Documented On 11:03AM ; [facility] Procedures and Surgical History Includes: Procedures from this encounter Procedures Code Diagnosis Performing Provider Service L ocation Service Date education and instructions Last Documented On 1 10:42AM ; [facility] explanation of plan Last Documented On 1 10:42AM ; [facility] discharge medications reconciled with current ga dication list 1111F Last Documented On 1 10:35AM ; [facility] review of medications documented 1160F Last Documented On 10:35AM ; [facility] Discussed Contraception Last Documented On 1 10:42AM ; [facility] Urged Exercise and Diet , exercise at le ast 30 min three times per week Last Documented On 1 10:42AM ; [facility] Clinical summary provided to patient Last Documented On 1 10:42AM ; [facility] cervical Pap smear 52118 Last Documented On 1 10:42AM ; [facility] Medical History Includes: Medical History addressed during this encounter Description Last Updated Sexually active 01/11/2023 Last Documented On 1 10:31AM ; [facility] History of cervical Pap smear 10/21/2019 01/18/2021 Last Documented On 1 11:03AM ; [facility] Contraception: uses condoms 100% 021 Last Documented On 1 11:03AM ; [facility] Last pap smear date 10/21/2019 01/18/2021 Last Documented On 1 11:03AM ; [facility] LMP: 01/16/2021 01/18/2021 Last Documented On 1 11:03AM ; [facility] PRIMARY CARE PROVIDER : Dr Brownlee 0 Last Documented On 1 10:31AM ; [facility] Vaginal delivery x 2 10/21/2019 Last Documented On 1 10:31AM ; [facility] Para 2 04/12/2018 Last Documented On 1 10:31AM ; [facility] Result: normal 11/21/2017 Last Documented On 1 10:31AM ; [facility] Baby thriving STA Nicole Adame 39- 1/7wks #6 12oz 08/11/2017 Last Documented On 1 10:31AM ; [facility] Depression 06/09/2017 Last Documented On 1 10:31AM ; [facility] History of allergic rhinitis Seasonal Last Documented On 1 10:31AM ; [facility] History of depression 06/09/2017 Last Documented On 1 10:31AM ; [facility] History of Gardasil 06/09/2017 Last Documented On 1 10:31AM ; [facility] History of recurrent loss (gra vid) 06/09/2017 Last Documented On 1 10:31AM ; [facility] Not taking medication for depression Last Documented On 1 10:31AM ; [facility] Aborta 2 11/24/2016 Last Documented On 1 10:31AM ; [facility] 4 11/24/2016 Last Documented On 1 10:31AM ; [facility] Family History Includes: Family History addressed during this encounter Description Last Updated Family history of diabetes mellitus PGGM 10/21/2019 Last Documented On 1 10:31AM ; [facility] Paternal grandmother's histo ry of malignant female breast neoplasm Pat, GMA 01/20/2016 Last Documented On 1 10:31AM ; [facility] Review of Systems Includes: Review of [...] Active Last Documented On 3 3:01PM ; [facility] Encounters Encounter Provider Location Date Check-In Time Check-Out Time Diagnosis WELL WOMAN - ESTABLISHED PT JOSY LAWSON RN DIANE [facility] 01/19/20 21 10:27AM 10:59AM Screen Malignant Neoplasm Cervix,Normal Female Exam Insurance Includes: Active Insurance Policies Plan Name Member ID Group # Subscriber Relationship Effect chris Dates 1 - [facility] [id number] [employer] Self Clinical Notes Includes: Clinical Notes from this encounter No Clinical Notes Recorded
--- OUTSIDE RECORDS SUMMARY | 2024-10-07 08:43 | XMS_ITS | Continuity of Care Document ---
Author Organization [facility] Address [address] [place] [address] [place] [address] Phone Care Team Providers Care Manager Technical Name Role Phone Alireza Fry MD Unavailable [...] Diagnoses Date Provider Providers Copied on Encounter [facility], [address] [place], [id number], tel:[phone] [facility] No Information [address] Ang [address]. [address], [place], [place], [address] , [place]. [phone] [facility], [address], [place], [place], [id number], tel:[phone] [facility] No Information 6 Ang Lay[address], [place], [place], [address] , [place]. tel:[phone] OFFICE/OUTPA TIENT VISIT, [facility], [address], [place], [place], [address], [place] tel:[phone] [facility] Anxiety (chief complaint) anxiety1 (chief complaint) anemia1 (chief complaint) Generalized anxiety disorderAnemia [address] Ang [address], [place], [place], [address] , [place]. tel:[phone] Referring Provider: Minnie Pandey [address], [place], [place], [address]. tel:[phone] OFFICE/OUTPA TIENT VISIT, [facility], [address], [place], [place], [address], [place] tel:[phone] [facility] anemia1 (chief complaint) anxiety1 (chief complaint) AnemiaGeneralized anxiety disorder [address], [place], [place], [address] , [place]. tel:[phone] Referring Provider: [address]ie [address], [place], [place], [address]. tel:[phone] OFFICE/OUTPA TIENT VISIT, [facility], [address], [place], [place], [address], [place] tel:[phone] [facility] anxiety1 (chief complaint) nevus (chief complaint) Generalized anxiety disorderNevus, non-neoplastic [address] Ang [address], [place], [place], [address] , [place]. tel:[phone] Referring Provider: Minnie Pandey [address], [place], [place], [address]. tel:[phone] PREV VISIT, NEW, AGE 18-39 [facility], [address], [place], [place], [address], [place] tel:[phone] [facility] PHysical (chief complaint) Encounter for general adult medical exam w abnormal findingsGeneralized anxiety disorderInsomnia, unspecified 201 [address] [facility] [address], [place], [place], [address] , . tel:[phone] Referring Provider: Minnie Pandey [facility] [address], [place], [place], [address]. tel:[phone] Family History Family Member Type Diagnosis Age At Onset Sister Problem (finding) Depression Mother Problem (finding) Alive and well Father Problem (finding) Coronary artery disease Mother Problem (finding) Depression Sister Problem (finding) Alive and well Payers Payer name Insurance type Covered constitution party ID Authoriza tion(s) No Information Social History [...] [place]ley [address] [place], [phone] Ordered: Referrals: Julio Cesar Harley. Evaluate and treat ordered History Of Present Illness Encounter Date Complaint History Of Prese nt Illness Anxiety anxiety1 Pt has chronic a nxiety and depression. Pt doing ok with celexa and xanax. pt denies any suicidal or homcidial thought Pt doing ok with current meds. Pt denies any crying spells anemia1 P:t has not done lab yet. Pt denies any GI bleeding anemia1 Pt is mildly ane jacqueline. Pt denies any GI blood loss. Pt has regular period and she bleeds 4-5 days and is not heavy Pt has IUD. Pt denies any dizziness anxiety1 Pt has chronic a nxiety and depression .Pt takes celexa and xanax Pt doing better Pt denies any suicidal or homicidal thought. Pt feels more relaxed and is able to deal with things better. anxiety1 Pt has chronic a nxiety and depression. Pt takes celexa and xanax and doing better. pt states that 0.5 mg xanax does not help and she has to take two of it to work. Pt states that she overall feels much better Pt denies any suicidal or homicdial thought nevus Pt has birthmark nevus on front of neck. Pt made appointment to see plastic surgeon in November. Pt denies any size change PHysical 25 yo female nee ds annual [...]
--- OUTSIDE RECORDS SUMMARY | 2024-10-07 08:44 | XMS_ITS | Clinical Summary ---
Author Organization [facility] Address [address] [place] [address] Phone Care Team Providers Care Orthotic Practitioner Name Role Phone TAMMY LEI, MICHELLE Lakia Unavailable [phone] Reason for Visit and Chief Complaint [Patient Encounter] Problems Includes: Problems addressed during this encounter and other active Problems All Visits Onset Date Resolved Date Provider Condition S tatus Nephrolithiasis 06/27/2018 JOSY LAWSON RN Vasquez P BC Active Last Documented On 8 10:06AM ; [facility] Depression 11/24/2016 JOSY LAWSON RN DIANE Active Last Documented On 7 2:39PM ; [facility] Note: Unchanged Type AB blood, Rh positive 07/12/2016 JOSY SEXTON RN DIANE Active Last Documented On 6 2:16PM ; [facility] Plan of Treatment No Plan of Treatment [...] On 05/25/2023 3:02PM By Machelle Augustine ; [facility] Medications Administered Includes: Administered Medications from [...] Active Last Documented On 3 3:01PM ; [facility] Encounters Encounter Provider Location Date Check-In Time Check-Out Time Diagnosis [Patient Encounter] DAVID HASSAN DIANE-PALMER 02/07/2020 2:22PM 11:59PM Insurance Includes: Active Insurance Policies Plan Name Member ID Group # Subscriber Relationship Effect chris Dates 1 - [facility] [id number] [employer] PH[employer] Self Clinical Notes Includes: Clinical Notes from this encounter No Clinical Notes Recorded
--- OUTSIDE RECORDS SUMMARY | 2024-10-07 08:44 | XMS_ITS | Clinical Summary ---
Author Organization [facility] Address [address] [place] [address] Phone Care Team Providers Care Mill Manager Name Role Phone TAMMY LEI, MICHELLE Dorman Unavailable [phone] Reason for Visit and Chief Complaint The Chief Complaint is: IUD check Problems Includes: Problems addressed during this encounter and other active Problems Current Visit Onset Date Resolved Date Provider Conditio n Status History of Allergic Rhinitis 12/23/2016 Unknown MICHELLE MUNOZ MD Resolved Last Documented On 11/09/2017 9:46AM ; [facility] Note: was Closed. History of Depression 12/23/2016 Unknown MICHELLE MUNOZ MD Resolved Last Documented On 11/09/2017 9:46AM ; [facility] Note: was Closed. History of Recurrent Loss (Gravid) 12/23/2016 Unknown MICHELLE MUNOZ MD Resolved Last Documented On 11/09/2017 9:46AM ; [facility] Note: was Closed. Past Visits Onset Date Resolved Date Provider Condition Status Nephrolithiasis 06/27/2018 JOSY LAWSON RN Vasquez P BC Active Last Documented On 8 10:06AM ; [facility] Depression 11/24/2016 JOSY LAWSON RN DIANE BC Active Last Documented On 7 2:39PM ; [facility] Note: Unchanged Type AB blood, Rh positive 07/12/2016 JOSY SEXTON RN DIANE BC Active Last Documented On 6 2:16PM ; [facility] Plan of Treatment No Plan of Treatment Recorded Assessments Includes: Assessments from this encounter Findings - [Z30.09 - Encounter for other general counseling and advice on contraception] Contraceptive management - Last Documented On 05/25/2023 3:11PM ; [facility] Medical Equipment - Implanted Devices Includes: Current Devices No Medical Equipment Recorded Medications Includes: Medications discussed during this encounter and other current Medications Current Medications (continue as prescribed) Mirena (52 MG) 20 MCG/DAY Intrauterine Intrauterine de vice 02/09/2023 Provider: Diagnosis: Last Documented On 05/25/2023 3:02PM By Machelle Augustine ; [facility] Past Medications on file Ibuprofen 800 MG Oral Tablet 02/09/2023 - 02/16/2023 Provider: JOSY LAWSON RN DIANE Diagnosis: Encounter for in itial prescription of other contraceptives One tablet three times a day TAKE DIRECTED W/FOOD Last Documented On 3 8:38AM By JOSY ELMORE ; [facility] Sertraline HCl 100MG Oral Tablet 04/12/2018 - 04/28/2018 Provider: JOSY ESCOBAR Diagnosis: Major depressive disorder, recurrent, moderate One tablet daily Last Documented On 8 9:21AM By JOSY ELMORE ; [facility] Sertraline HCl 50MG Oral Tablet 04/06/2018 - 04/13/2018 Provider: JOSY ESCOBAR Diagnosis: Major depressive disorder, recurrent, moderate 1 po q day......ed Last Documented On 8 6:29PM By MARIAH CODY ; [facility] Sertraline HCl 50MG Oral Tablet 11/21/2017 - 12/12/2017 Provider: JOSY LAWSON RN DIANE Diagnosis: Major depressive disorder, recurrent, moderate One tablet daily Last Documented On 8 4:09PM By JOSY VALLE ; [facility] Macrobid 100MG Oral Capsule 05/11/2017 - 05/18/2017 Pr ovider: JOSY LAWSON RN DIANE Diagnosis: Dysuria One tablet twice a day Last Documented On 7 3:20PM By JOSY VALLE ; [facility] Ferrous Gluconate 324 (37.5 Fe)MG Oral Tablet 04/28/2017 - 08/26/2017 Provider: JOSY CHAKRABORTY Diagnosis: Anemia complicat ing , third trimester One tablet twice a day Last Documented On 7 11:13AM By JOSY VALLE ; [facility] Plus 27-1MG Oral Tablet 11/24/2016 - 11/19/2017 Provider: JOSY CHAKRABORTY Diagnosis: Irregular menstr uation, unspecified 1 capsule daily Last Documented On 7 2:01PM By JOSY VALLE ; [facility] Terconazole 0.8 % Cream 07/08/2016 - 07/11/2016 Provid er: JOSY CHAKRABORTY Diagnosis: Acute vaginitis as directed 1 ildefonso in vagina at HS x 3 Last Documented On 6 2:30PM By JOSY VALLE ; [facility] Plus 27-1 MG Tablet 07/05/2016 - 06/30/2017 Provider: JOSY CHAKRABORTY Diagnosis: Encounter for ot h general cnsl and advice on procreation One tablet daily Last Documented On 6 4:08PM By JOSY VALLE ; [facility] Naproxen 500 MG Tablet 01/20/2016 - 01/27/2016 Provide r: JOSY CHAKRABORTY Diagnosis: Pelvic and perin eal pain One tablet twice a day ONE T AB TWICE A DAY WITH FOOD DON'T EXCEED 2 TABS IN 24 HOURS Last Documented On 6 4:17PM By JOSY VALLE ; [facility] Medications Administered Includes: Administered Medications from this encounter No Administered Medications Recorded Vital Signs Includes: Vital Signs from this encounter Vital Name 05/25/2023 02:56P Blood Pressure Sitting L 112/74 BP Cuff Size Regular Height (in) 63 Weight (lb) 142 Body Mass Index 25.2 Body Surface Area 1.7 Last Documented: On 05/25/2023 3:03PM ; [facility] Results Includes: Results discussed during this encounter [...] exam Last Documented On 3 3:11PM ; [facility] Patient reassured IUD in cor rect position and she may rely on it for contraception Last Documented On 3 3:11PM ; [facility] Surgical History Last Updated Surgical / procedural history Gel Breast Implants-04/202201/11/2023 Last Documented On 3 2:56PM ; [facility] Medical History Includes: Medical History addressed during this encounter Description Last Updated Contraception: Mirena 05/25/2023 Last Documented On 3 3:11PM ; [facility] Last pap smear date 12/202205/25/2023 Last Documented On 3 3:11PM ; [facility] LMP: 05/20/2023 denies any unprotected 1 07/25/2022 Last Documented On 3 3:11PM ; [facility] Sexually active last unprotected about a month ago 01/11/2023 Last Documented On 3 2:56PM ; [facility] History of cervical Pap smear 12/2020 Last Documented On 3 2:56PM ; [facility] History of Pap smear done 12/2020 023 Last Documented On 3 2:56PM ; [facility] PRIMARY CARE PROVIDER : Dr Brownlee 0 Last Documented On 3 2:56PM ; [facility] Sexually active with 3 partners in the l ast year 10/21/2019 Last Documented On 3 2:56PM ; [facility] Vaginal delivery x 2 10/21/2019 Last Documented On 3 2:56PM ; [facility] Para 2 04/12/2018 Last Documented On 3 2:56PM ; [facility] Result: normal 11/21/2017 Last Documented On 3 2:56PM ; [facility] is breast-feeding and plans on breast feeding x 6 months. Supplemenets with formula about 1/2 of the time 08/11/2017 Last Documented On 3 2:56PM ; [facility] Baby thriving KATHI Adame 39- 1/7wks #6 12oz 08/11/2017 Last Documented On 3 2:56PM ; [facility] Depression 06/09/2017 Last Documented On 3 2:56PM ; [facility] History of allergic rhinitis Seasonal Last Documented On 3 2:56PM ; [facility] History of depression 06/09/2017 Last Documented On 3 2:56PM ; [facility] History of Gardasil 06/09/2017 Last Documented On 3 2:56PM ; [facility] History of recurrent loss (gra vid) 06/09/2017 Last Documented On 3 2:56PM ; [facility] Not taking medication for depression Last Documented On 3 2:56PM ; [facility] Aborta 2 11/24/2016 Last Documented On 3 2:56PM ; [facility] 4 11/24/2016 Last Documented On 3 2:56PM ; [facility] Family History Includes: Family History addressed during this encounter Description Last Updated Parkinsons-MGM 01/11/2023 Last Documented On 3 2:56PM ; [facility] Family history of malignant female breas t neoplasm PGM 01/11/2023 Last Documented On 3 2:56PM ; [facility] Family history of diabetes mellitus PG 10/21/2019 Last Documented On 3 2:56PM ; [facility] Paternal grandmother's histo ry of malignant female breast neoplasm Pat, GMA 01/20/2016 Last Documented On 3 2:56PM ; [facility] Review of Systems Includes: Review of [...] Active Last Documented On 3 3:01PM ; [facility] Encounters Encounter Provider Location Date Check-In Time Check-Out Time Diagnosis FOLLOW UP JOSY LAWSON RN DIANE [facility] 05/25/20 23 2:55PM 3:12PM Contraceptive Management Insurance Includes: Active Insurance Policies Plan Name Member ID Group # Subscriber Relationship Effect chris Dates 1 - [facility] [id number] BASILIAELVA Elliott AGUILERAVERO Self Clinical Notes Includes: Clinical Notes from this encounter * Progress note Date Encounter Last Documented by 05/25/2023 FOLLOW UP Last documented on 05/25/2023; 3:11 PM, JOSY LAWSON RN DIANE ; [facility] Active Problems & Conditions - F32.9 - [...]
--- OUTSIDE RECORDS SUMMARY | 2024-10-07 08:44 | XMS_ITS | Clinical Summary ---
Author Organization [facility] Address [address] [place] [address] Phone Care Team Providers Care Leak Inspector Name Role Phone TAMMY LEI, MICHELLE Dorman Unavailable [phone] Reason for Visit and Chief Complaint visit for: IUD Insertion - The Chief Complaint is: Mirena Insert. LOT: [id number] EXP: 10/2024 LMP: 02/03/2023 Problems Includes: Problems addressed during this encounter and other active Problems Current Visit Onset Date Resolved Date Provider Conditio n Status History of Allergic Rhinitis 12/23/2016 Unknown MICHELLE MUNOZ MD Resolved Last Documented On 11/09/2017 9:46AM ; [facility] Note: was Closed. History of Depression 12/23/2016 Unknown MICHELLE MUNOZ MD Resolved Last Documented On 11/09/2017 9:46AM ; [facility] Note: was Closed. History of Recurrent Loss (Gravid) 12/23/2016 Unknown MICHELLE MUNOZ MD Resolved Last Documented On 11/09/2017 9:46AM ; [facility] Note: was Closed. Past Visits Onset Date Resolved Date Provider Condition Status Nephrolithiasis 06/27/2018 JOSY LAWSON RN N P BC Active Last Documented On 8 10:06AM ; [facility] Depression 11/24/2016 JOSY LAWSON RN NP BC Active Last Documented On 7 2:39PM ; [facility] Note: Unchanged Type AB blood, Rh positive 07/12/2016 JOSY SEXTON RN DIANE Active Last Documented On 6 2:16PM ; [facility] Plan of Treatment Pending Tests Order Diagnosis Results Due Ordering Nadiya carrasco In office procedures - OB MIRENA Encounter for initial prescription of other contraceptives 02/23/23 JOSY ESCOBAR Last Documented On 3 8:27AM ; [facility] In office procedures - OB IUD Insertion Encounter for initial prescription of other contraceptives 02/23/23 JOSY ESCOBAR Last Documented On 3 8:27AM ; [facility] Assessments Includes: Assessments from this encounter Findings - [Z30.018 - Encounter for initial prescription of other contraceptives] Encounter for contraceptive surveillance, unspecified - Last Documented On 02/09/2023 8:28AM ; [facility] Medical Equipment - Implanted Devices Includes: [...] times a day TAKE DIRECTED W/FOOD Pharmacy: [facility], [address] - Last Documented On 3 8:38AM By JOSY VALLE ; [facility] Current Medications (continue as prescribed) Mirena (52 MG) 20 MCG/DAY Intrauterine Intrauterine de vice 02/09/2023 Provider: Diagnosis: Last Documented On 05/25/2023 3:02PM By Machelle Augustine ; [facility] Past Medications on file Sertraline HCl 100MG Oral Tablet 04/12/2018 - 04/28/2018 Provider: JOSY CHAKRABORTY Diagnosis: Major depressive disorder, recurrent, moderate One tablet daily Last Documented On 8 9:21AM By JOSY VALLE ; [facility] Sertraline HCl 50MG Oral Tablet 04/06/2018 - 04/13/2018 Provider: JOSY CHAKRABORTY Diagnosis: Major depressive disorder, recurrent, moderate 1 po q day......ed Last Documented On 8 6:29PM By MARIAH COYD ; [facility] Sertraline HCl 50MG Oral Tablet 11/21/2017 - 12/12/2017 Provider: JOSY CHAKRABORTY Diagnosis: Major depressive disorder, recurrent, moderate One tablet daily Last Documented On 8 4:09PM By JOSY VALLE ; [facility] Macrobid 100MG Oral Capsule 05/11/2017 - 05/18/2017 Pr ovider: JOSY CHAKRABORTY Diagnosis: Dysuria One tablet twice a day Last Documented On 7 3:20PM By JOSY VALLE ; [facility] Ferrous Gluconate 324 (37.5 Fe)MG Oral Tablet 04/28/2017 - 08/26/2017 Provider: JOSY CHAKRABORTY Diagnosis: Anemia complicat ing , third trimester One tablet twice a day Last Documented On 7 11:13AM By JOSY VALLE ; [facility] Plus 27-1MG Oral Tablet 11/24/2016 - 11/19/2017 Provider: JOSY CHAKRABORTY Diagnosis: Irregular menstr uation, unspecified 1 capsule daily Last Documented On 7 2:01PM By JOSY VALLE ; [facility] Terconazole 0.8 % Cream 07/08/2016 - 07/11/2016 Provid er: JOSY CHAKRABORTY Diagnosis: Acute vaginitis as directed 1 ildefonso in vagina at HS x 3 Last Documented On 6 2:30PM By JOSY VALLE ; [facility] Plus 27-1 MG Tablet 07/05/2016 - 06/30/2017 Provider: JOSY CHAKRABORTY Diagnosis: Encounter for ot h general cnsl and advice on procreation One tablet daily Last Documented On 6 4:08PM By JOSY VALLE ; [facility] Naproxen 500 MG Tablet 01/20/2016 - 01/27/2016 Provide r: JOSY CHAKRABORTY Diagnosis: Pelvic and perin eal pain One tablet twice a day ONE T AB TWICE A DAY WITH FOOD DON'T EXCEED 2 TABS IN 24 HOURS Last Documented On 6 4:17PM By JOSY VALLE ; [facility] Medications Administered Includes: Administered Medications from this encounter No Administered Medications Recorded Vital Signs Includes: Vital Signs from this encounter Vital Name 02/09/2023 08:03A Blood Pressure Sitting L 112/70 BP Cuff Size Regular Temp-Temporal 98.1 Height (in) 63 Weight (lb) 144 Body Mass Index 25.5 Body Surface Area 1.7 Last Documented: On 02/09/2023 8:07AM ; [facility] Results Includes: Results discussed during this encounter No Results Recorded For Specified Dates History of Present Illness Includes: History of Present Illness from this encounter HPI - Allergy list reviewed - Medication list reviewed Social History Description Last Updated Activities 02/09/2023 Last Documented On 3 8:28AM ; [facility] Alcohol use seldom 02/09/2023 Last Documented On 3 8:28AM ; [facility] Alcohol use: 2 drinks or less per day no ne 02/09/2023 Last Documented On 3 8:28AM ; [facility] Amount of sleep 02/09/2023 Last Documented On 3 8:28AM ; [facility] Current nonsmoker 02/09/2023 Last Documented On 3 8:28AM ; [facility] Education history 02/09/2023 Last Documented On 3 8:28AM ; [facility] Educational level 02/09/2023 Last Documented On 3 8:28AM ; [facility] Exercising regularly 02/09/2023 Last Documented On 3 8:28AM ; [facility] In monogamous relationship last coitus 1 month ago 02/09/2023 Last Documented On 3 8:28AM ; [facility] 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 Last Documented On 3 8:28AM ; [facility] Marital history Single 02/09/2023 Last Documented On 3 8:28AM ; [facility] Non-smoker 02/09/2023 Last Documented On 3 8:28AM ; [facility] Not a smoker 02/09/2023 Last Documented On 3 8:28AM ; [facility] Not using drugs 02/09/2023 Last Documented On 3 8:28AM ; [facility] Personal history 02/09/2023 Last Documented On 3 8:28AM ; [facility] Sexually active 02/09/2023 Last Documented On 3 8:28AM ; [facility] Sexually active with 1 partners in the l ast year 02/09/2023 Last Documented On 3 8:28AM ; [facility] Single 02/09/2023 Last Documented On 3 8:28AM ; [facility] Smoking status : Never smoker 02/09/2023 Last Documented On 3 8:28AM ; [facility] Social history unchanged single parent n o assistance from FOB 02/09/2023 Last Documented On 3 8:28AM ; [facility] Tobacco non-user 02/09/2023 Last Documented On 3 8:28AM ; [facility] Procedures and Surgical History Includes: Procedures from this encounter Procedures Code Diagnosis Performing Provider Service L ocation Service Date insertion of intrauterine device (IUD) The uterus was sounded using sterile technique. The IUD insertion flange was placed at the appropriate position and the child welfare social worker was placed through the os to a depth of 7 cm, and the applicator was discharged to the first deployment german. The insertion device was advanced to the flange, and the applicator was deployed fully making sure the IUD strings were free from the child welfare social worker. The child welfare social worker was removed from the cervix and the strings were trimmed to 4-5 cm. The tenaculum was removed and the speculum removed [id number] Last Documented On 3 8:26AM ; [facility] education and instructions Last Documented On 3 8:25AM ; [facility] intrauterine device (IUD) Af ter discussing the risks and benefits of the IUD and checking for contraindications, and having the patient verbally and in writing, give consent to have the device placed, the patient was placed in the dorsal lithotomy position Last Documented On 3 8:25AM ; [facility] Patient tolerated procedure well Last Documented On 3 8:25AM ; [facility] Instructed to use non-hormonal, back-up method of control x 1 month Last Documented On 3 8:25AM ; [facility] Patient verbalizes understanding Last Documented On 3 8:25AM ; [facility] RTO in month for IUD check. Last Documented On 3 8:25AM ; [facility] Encouraged to call office with any IUD c oncerns Last Documented On 3 8:25AM ; [facility] Clinical summary provided to patient Last Documented On 3 8:25AM ; [facility] an HCG test was negative [id number] Last Documented On 3 8:25AM ; [facility] Surgical History Last Updated Surgical / procedural history Gel Breast Implants-04/202201/11/2023 Last Documented On 3 8:03AM ; [facility] Medical History Includes: Medical History addressed during this encounter Description Last Updated Contraception: uses condoms 100% 023 Last Documented On 3 8:03AM ; [facility] Last pap smear date 12/202005/25/2023 Last Documented On 3 8:03AM ; [facility] LMP: 02/03/2023 denies any unprotected Last Documented On 3 8:28AM ; [facility] Sexually active last unprotected about a month ago 01/11/2023 Last Documented On 3 8:03AM ; [facility] History of cervical Pap smear 12/2020 Last Documented On 3 8:03AM ; [facility] History of Pap smear done 12/2020 023 Last Documented On 3 8:03AM ; [facility] PRIMARY CARE PROVIDER : Dr Brownlee 0 Last Documented On 3 8:03AM ; [facility] Sexually active with 3 partners in the l ast year 10/21/2019 Last Documented On 3 8:03AM ; [facility] Vaginal delivery x 2 10/21/2019 Last Documented On 3 8:03AM ; [facility] Para 2 04/12/2018 Last Documented On 3 8:03AM ; [facility] Result: normal 11/21/2017 Last Documented On 3 8:03AM ; [facility] is breast-feeding and plans on breast feeding x 6 months. Supplemenets with formula about 1/2 of the time 08/11/2017 Last Documented On 3 8:03AM ; [facility] Baby thriving KATHI Adame 39- 1/7wks #6 12oz 08/11/2017 Last Documented On 3 8:03AM ; [facility] Depression 06/09/2017 Last Documented On 3 8:03AM ; [facility] History of allergic rhinitis Seasonal Last Documented On 3 8:03AM ; [facility] History of depression 06/09/2017 Last Documented On 3 8:03AM ; [facility] History of Gardasil 06/09/2017 Last Documented On 3 8:03AM ; [facility] History of recurrent loss (gra vid) 06/09/2017 Last Documented On 3 8:03AM ; [facility] Not taking medication for depression Last Documented On 3 8:03AM ; [facility] Aborta 2 11/24/2016 Last Documented On 3 8:03AM ; [facility] 4 11/24/2016 Last Documented On 3 8:03AM ; [facility] Family History Includes: Family History addressed during this encounter Description Last Updated Parkinsons-MGM 01/11/2023 Last Documented On 3 8:03AM ; [facility] Family history of malignant female breas t neoplasm PGM 01/11/2023 Last Documented On 3 8:03AM ; [facility] Family history of diabetes mellitus PGGM 10/21/2019 Last Documented On 3 8:03AM ; [facility] Paternal grandmother's histo ry of malignant female breast neoplasm Pat, GMA 01/20/2016 Last Documented On 3 8:03AM ; [facility] Review of Systems Includes: Review of [...] Active Last Documented On 3 3:01PM ; [facility] Encounters Encounter Provider Location Date Check-In Time Check-Out Time Diagnosis PROCEDURE OFFICE JOSY CHAKRABORTY [facility] 02/10/20 23 8:07AM 8:27AM Encounter For Contraceptive Surveillance, Unspecified Insurance Includes: Active Insurance Policies Plan Name Member ID Group # Subscriber Relationship Effect chris Dates 1 - [facility] [id number] COBY Zuniga Clinical Notes Includes: Clinical Notes from this encounter * Progress note Date Encounter Last Documented by 02/09/2023 PROCEDURE OFFICE Last documented on 02/09/2023; 8:28 AM, JOSY ESCOBAR ; [facility] Active Problems & Conditions - F32.9 - Depression - Nephrolithiasis - Z80.3 - Paternal Grandmother's History of Breast Neoplasm Malignant Female - Pat, GMA - Z67.30 - Type AB blood, Rh positive Chief Complaint The Chief Complaint is: Mirena Insert. LOT: [id number] EXP: 10/2024 LMP: 02/03/2023. Reason For Visit [...] 1/2 of the time. : Baby thriving [facility] Nicole Adame 39- /7wks #6 12oz, 4, [...] no assistance from FOB. 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 Tobacco use: Current nonsmoker. Not a smoker. [...] placed at the appropriate position and the child welfare social worker was placed through the os to a depth of 7 cm, and the applicator was discharged to the first deployment german. The insertion device was advanced to the flange, and the applicator was deployed fully making sure the IUD strings were free from the child welfare social worker. The child welfare social worker was removed from the cervix and the [...]
--- OUTSIDE RECORDS SUMMARY | 2024-10-07 08:44 | XMS_ITS | Clinical Summary ---
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 Pt would like a Mirberny Problems Includes: Problems addressed during this encounter and other active Problems Current Visit Onset Date Resolved Date Provider Conditio n Status History of Allergic Rhinitis 12/23/2016 Unknown MICHELLE MUNOZ MD Resolved Last Documented On 11/09/2017 9:46AM ; [facility] Note: was Closed. History of Depression 12/23/2016 Unknown MICHELLE MUNOZ MD Resolved Last Documented On 11/09/2017 9:46AM ; [facility] Note: was Closed. History of Recurrent Loss (Gravid) 12/23/2016 Unknown MICHELLE MUNOZ MD Resolved Last Documented On 11/09/2017 9:46AM ; [facility] Note: was Closed. Depression 11/24/2016 JOSY Ovalle DIANE BC Active Last Documented On 11/24/2016 2:39PM ; [facility] Note: Unchanged Past Visits Onset Date Resolved Date Provider Condition Status Nephrolithiasis 06/27/2018 JOSY BARRAGAN P BC Active Last Documented On 8 10:06AM ; [facility] Type AB blood, Rh positive 07/12/2016 JOSY SEXTON RN DIANE BC Active Last Documented On 6 2:16PM ; [facility] Plan of Treatment - Clinical summary provided to patient - Last Documented On 01/11/2023 3:45PM ; [facility] PT TO CALL WITH ANY CHANGE IN STATUS ALL QUESTIONS ANSWERED WITH UNDERSTANDING VERBALIZED BY PT. - Last Documented On 01/11/2023 3:45PM ; [facility] Instructions to patient Instructions for patient : B reast Self Exam discussed and technique reviewed Last Documented On 3 3:24PM ; [facility] Use a condom during sexual i ntercourse Last Documented On 3 3:24PM ; [facility] Instructed to call if excess chris bleeding or abdominal/pelvic pain Last Documented On 3 3:24PM ; [facility] Recommend diet and exercise at least 30 min three times per week Last Documented On 3 3:24PM ; [facility] Education and Decision Aids were provided during visit for: Patient Education: Daily yan cium and vitamin D Last Documented On 3 3:24PM ; [facility] Assessments Includes: Assessments from this encounter Findings - [Z01.419 - Encounter for gynecological examination (general) (routine) without abnormal findings] NORMAL FEMALE EXAM - Last Documented On 01/11/2023 3:45PM ; [facility] - [Z12.4 - Encounter for screening for malignant neoplasm of cervix] Screen malignant neoplasm cervix - Last Documented On 01/11/2023 3:45PM ; [facility] Instructions Includes: Instructions from this encounter Instructions to patient Instructions for patient : B reast Self Exam discussed and technique reviewed Last Documented On 3 3:24PM ; [facility] Use a condom during sexual i ntercourse Last Documented On 3 3:24PM ; [facility] Instructed to call if excess chris bleeding or abdominal/pelvic pain Last Documented On 3 3:24PM ; [facility] Recommend diet and exercise at least 30 min three times per week Last Documented On 3 3:24PM ; [facility] Education and Decision Aids were provided during visit for: Patient Education: Daily yan cium and vitamin D Last Documented On 3 3:24PM ; [facility] Medical Equipment - Implanted Devices Includes: Current Devices No Medical Equipment Recorded Medications Includes: Medications discussed during this encounter and other current Medications Current Medications (continue as prescribed) Mirena (52 MG) 20 MCG/DAY Intrauterine Intrauterine de vice 02/09/2023 Provider: Diagnosis: Last Documented On 05/25/2023 3:02PM By Machelle Augustine ; [facility] Past Medications on file Ibuprofen 800 MG Oral Tablet 02/09/2023 - 02/16/2023 Provider: JOSY ESCOBAR Diagnosis: Encounter for in itial prescription of other contraceptives One tablet three times a day TAKE DIRECTED W/FOOD Last Documented On 3 8:38AM By JOSY VALLE ; [facility] Sertraline HCl 100MG Oral Tablet 04/12/2018 - 04/28/2018 Provider: JOSY ESCOBAR Diagnosis: Major depressive disorder, recurrent, moderate One tablet daily Last Documented On 8 9:21AM By JOSY VALLE ; [facility] Sertraline HCl 50MG Oral Tablet 04/06/2018 - 04/13/2018 Provider: JOSY ESCOBAR Diagnosis: Major depressive disorder, recurrent, moderate 1 po q day......ed Last Documented On 8 6:29PM By MARIAH CODY ; [facility] Sertraline HCl 50MG Oral Tablet 11/21/2017 - 12/12/2017 Provider: JOSY ESCOBAR Diagnosis: Major depressive disorder, recurrent, moderate One tablet daily Last Documented On 8 4:09PM By JOSY VALLE ; [facility] Macrobid 100MG Oral Capsule 05/11/2017 - 05/18/2017 Pr ovider: JOSY ESCOBAR Diagnosis: Dysuria One tablet twice a day Last Documented On 7 3:20PM By JOSY VALLE ; [facility] Ferrous Gluconate 324 (37.5 Fe)MG [...] On 7 2:01PM By JOSY VALLE ; [facility] Terconazole 0.8 % Cream 07/08/2016 - 07/11/2016 Provid er: JOSY ESCOBAR Diagnosis: Acute vaginitis as directed 1 ildefonso in vagina at HS x 3 Last Documented On 6 2:30PM By JOSY VALLE ; [facility] Plus 27-1 MG Tablet 07/05/2016 - 06/30/2017 Provider: JOSY CHAKRABORTY Diagnosis: Encounter for ot h general cnsl and advice on procreation One tablet daily Last Documented On 6 4:08PM By JOSY VALLE ; [facility] Naproxen 500 MG Tablet 01/20/2016 - 01/27/2016 Provide r: JOSY ESCOBAR Diagnosis: Pelvic and perin eal pain One tablet twice a day ONE T AB TWICE A DAY WITH FOOD DON'T EXCEED 2 TABS IN 24 HOURS Last Documented On 6 4:17PM By JOSY VALLE ; [facility] Medications Administered Includes: Administered Medications from this encounter No Administered Medications Recorded Vital Signs Includes: Vital Signs from this encounter Vital Name 01/11/2023 03:07P Blood Pressure Sitting L 114/70 BP Cuff Size Regular Temp-Temporal 98.5 Height (in) 63 Weight (lb) 145 Body Mass Index 25.7 Body Surface Area 1.7 Last Documented: On 01/11/2023 3:14PM ; [facility] Results Includes: Results discussed during this encounter No Results Recorded For Specified Dates History of Present Illness Includes: History of Present Illness from this encounter HPI - Allergy list reviewed - Medication list reviewed Social History Description 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 Updated 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 Last Documented On 3 3:45PM ; [facility] In monogamous relationship last coitus 1 month ago 01/11/2023 Last Documented On 3 3:45PM ; [facility] Activities 01/11/2023 Last Documented On 3 3:45PM ; [facility] Alcohol use seldom 01/11/2023 Last Documented On 3 3:45PM ; [facility] Alcohol use: 2 drinks or less per day no ne 01/11/2023 Last Documented On 3 3:45PM ; [facility] Amount of sleep 01/11/2023 Last Documented On 3 3:45PM ; [facility] Current nonsmoker 01/11/2023 Last Documented On 3 3:45PM ; [facility] Education history 01/11/2023 Last Documented On 3 3:45PM ; [facility] Educational level 01/11/2023 Last Documented On 3 3:45PM ; [facility] Exercising regularly 01/11/2023 Last Documented On 3 3:45PM ; [facility] Marital history Single 01/11/2023 Last Documented On 3 3:45PM ; [facility] Non-smoker 01/11/2023 Last Documented On 3 3:45PM ; [facility] Not using drugs 01/11/2023 Last Documented On 3 3:45PM ; [facility] Personal history 01/11/2023 Last Documented On 3 3:45PM ; [facility] Sexually active 01/11/2023 Last Documented On 3 3:45PM ; [facility] Smoking status : Never smoker 01/11/2023 Last Documented On 3 3:45PM ; [facility] Social history unchanged single parent n o assistance from FOB 01/11/2023 Last Documented On 3 3:45PM ; [facility] Not using alcohol 01/11/2023 Last Documented On 3 3:45PM ; [facility] Sexually active with 1 partners in the l ast year 01/11/2023 Last Documented On 3 3:45PM ; [facility] Tobacco non-user 01/11/2023 Last Documented On 3 3:45PM ; [facility] Procedures and Surgical History Includes: Procedures from this encounter Procedures Code Diagnosis Performing Provider Service L ocation Service Date education and instructions Last Documented On 3 3:24PM ; [facility] explanation of plan Last Documented On 3 3:24PM ; [facility] Discussed Contraception Pt. instructed she must abstain or use a reliable method of contraception until IUD can be placed. Partner had vasectomy 06/14, but has not had negative sperm counts as of today. All questions answered Last Documented On 3 3:45PM ; [facility] Urged Exercise and Diet , exercise at le ast 30 min three times per week Last Documented On 3 3:24PM ; [facility] Clinical summary provided to patient Last Documented On 3 3:24PM ; [facility] cervical Pap smear 42869 Last Documented On 3 3:24PM ; [facility] history of cervical Pap smear 12/2020 69439 Last Documented On 3 3:15PM ; [facility] Surgical History Last Updated Surgical / procedural history Gel Breast Implants-04/202201/11/2023 Last Documented On 3 3:45PM ; [facility] Medical History Includes: Medical History addressed during this encounter Description Last Updated Last pap smear date 12/202001/11/2023 Last Documented On 3 3:45PM ; [facility] Sexually active last unprotected about a month ago 01/11/2023 Last Documented On 3 3:45PM ; [facility] LMP: 01/08/2023 01/11/2023 Last Documented On 3 3:45PM ; [facility] History of cervical Pap smear 12/2020 Last Documented On 3 3:45PM ; [facility] History of Pap smear done 12/2020 023 Last Documented On 3 3:45PM ; [facility] Last pap smear date 12/202001/11/2023 Last Documented On 3 3:45PM ; [facility] PRIMARY CARE PROVIDER : Dr Brownlee 0 Last Documented On 3 2:58PM ; [facility] Vaginal delivery x 2 10/21/2019 Last Documented On 3 2:58PM ; [facility] Para 2 04/12/2018 Last Documented On 3 2:58PM ; [facility] Result: normal 11/21/2017 Last Documented On 3 2:58PM ; [facility] Baby thriving STA Nicole Adame 39- 1/7wks #6 12oz 08/11/2017 Last Documented On 3 2:58PM ; [facility] Depression 06/09/2017 Last Documented On 3 2:58PM ; [facility] History of allergic rhinitis Seasonal Last Documented On 3 2:58PM ; [facility] History of depression 06/09/2017 Last Documented On 3 2:58PM ; [facility] History of Gardasil 06/09/2017 Last Documented On 3 2:58PM ; [facility] History of recurrent loss (gra vid) 06/09/2017 Last Documented On 3 2:58PM ; [facility] Not taking medication for depression Last Documented On 3 2:58PM ; [facility] Aborta 2 11/24/2016 Last Documented On 3 2:58PM ; [facility] 4 11/24/2016 Last Documented On 3 2:58PM ; [facility] Family History Includes: Family History addressed during this encounter Description Last Updated Parkinsons-MGM 01/11/2023 Last Documented On 3 3:45PM ; [facility] Family history of malignant female breas t neoplasm PGM 01/11/2023 Last Documented On 3 3:45PM ; [facility] Family history of diabetes mellitus PGGM 10/21/2019 Last Documented On 3 2:58PM ; [facility] Paternal grandmother's histo ry of malignant female breast neoplasm Pat, GMA 01/20/2016 Last Documented On 3 2:58PM ; [facility] Review of Systems Includes: Review of [...] Active Last Documented On 3 3:01PM ; [facility] Encounters Encounter Provider Location Date Check-In Time Check-Out Time Diagnosis [facility] PT JOSY LAWSON RN DIANE [facility] 01/12/20 23 2:56PM 3:42PM Screen Malignant Neoplasm Cervix,Normal Female Exam Insurance Includes: Active Insurance Policies Plan Name Member ID Group # Subscriber Relationship Effect chris Dates 1 - [facility] [id number] [employer] Self Clinical Notes Includes: Clinical Notes from this encounter * Progress note Date Encounter Last Documented by 01/11/2023 [facility] PT Last documented on 01/11/2023; 3:45 PM, JOSY LAWSON RN NP ; [facility] Active Problems & Conditions - [...] History: History of Gardasil. : Baby thriving [place] [id number]- 07/30wks #6 12oz, 4, para 2, aborta 2, and history of the : vaginal delivery x 2. Sexual: Sexually active last unprotected about a month ago. Other: Cervical Pap smear 12/2020 Diagnoses: Allergic rhinitis Seasonal. Recurrent loss (gravid). Depression Procedural: - Pap smear done 12/2020 Social History Social history unchanged single parent no assistance from FOB. 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 Tobacco use: Current nonsmoker and non-smoker. 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 Health Reminders - Assess BMI satisfied 01/11/2023. - Assess Tobacco Use satisfied 01/11/2023.
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
--- NOTE | 2024-10-07 08:58 | ED_ITS ---
HPI - Skin/Abscess/Foreign Bdy General Chief complaint: Skin/Abscess/Foreign Body Stated complaint: Rash Time Seen by Provider: 10/07/24 08:37 Source: patient and RN notes reviewed Mode of arrival: ambulatory Limitations: no limitations History of Present Illness HPI narrative: Patient presents today complaining of a rash to the corners of her mouth x1 week with crusting and itching. She has tried Blistex, Carmex, JACKSON, and Vaseline without relief. Related Data Allergies Allergy/AdvReac Type Severity Reaction Status Date / Time Penicillins Allergy Intermediate Hives Verified 01/24/24 18:10 Review of Systems Review of Systems: CONSTITUTIONAL: Denies body aches, fever, chills, or sweats. EYES: Denies visual changes, redness, or discharge. ENT: Denies rhinorrhea, congestion, sore throat, or otalgia. + rash to corners of mouth CARDIOVASCULAR: Denies chest pain, palpitations, or edema. RESPIRATORY: Denies cough or dyspnea. GASTROINTESTINAL: Denies abdominal pain, nausea, vomiting, or diarrhea. GENITOURINARY: Denies dysuria or hematuria. SKIN: Denies rash, itching, or wounds. MUSCULOSKELETAL: Denies back pain, joint pain, or myalgia. NEUROLOGIC: Denies headache, numbness, tingling, or weakness. PSYCH: Denies depression or anxiety. [facility] Past Medical History Medical History Chronic back pain UTI (urinary tract infection) Depression Surgical History Surgical History H/O breast augmentation Family History Family History Mother No active medical problems Social History Social History Smoking status: Never smoker Alcohol intake: current Alcohol use details: rare social Substance use: never Living arrangements: alone Gender identity (if verbalized by the patient): Female Spiritual care concerns: No Comments At time of signature, I have reviewed and agree with nursing past medical, surgical, social and family history unless otherwise noted. Please see nursing chart for further information. There is no relevant family history pertinent to the presenting complaint Exam Narrative: GENERAL: Well-appearing, well-nourished, and in no acute distress. HEAD: Normocephalic, atraumatic. EYES: EOMI. No redness or drainage. Conjunctivae normal. ENT: Mucous membranes pink and moist. Nares clear. Mildly erythematous dry, rash with some slight flaking and cracking to the corners of the mouth that has spread to the nikia border of the lower lip. When viewed in a darkened room with the Wood's lamp, there was some illumination to suggest fungal/yeast infection. NECK: Normal AROM. CHEST: No respiratory distress. EXTREMITIES: Normal range of motion. No edema. SKIN: Warm, dry. Capillary refill normal. Normal skin turgor. NEURO: No focal deficits. Alert and oriented x3. Gait steady. PSYCH: Normal affect. No signs of depression or anxiety. Course Course Level of Care: Express Care Visit Vital Signs Vital signs: Vital Signs Temperature 97.3 F L 10/07/24 08:26 Pulse Rate 88 10/07/24 08:26 Respiratory Rate 20 10/07/24 08:26 Blood Pressure 128/59 L 10/07/24 08:26 Pulse Oximetry 100 10/07/24 08:26 Oxygen Delivery Room Air 10/07/24 08:26 Temperature 97.3 F L 10/07/24 08:26 Pulse Rate 88 10/07/24 08:26 Respiratory Rate 20 10/07/24 08:26 Blood Pressure 128/59 L 10/07/24 08:26 Pulse Oximetry 100 10/07/24 08:26 Oxygen Delivery Room Air 10/07/24 08:26 Reviewed MDM - Skin/Abscess/Foreign Bdy MDM Narrative Medical decision making narrative: Wood's Lamp illumination, exam, and history suggest fungal/yeast infection. Will treat with OTC clotrimazole. Follow up instructions given. Anticipatory guidance given. Differential Diagnosis Differential diagnosis: Likely viral exanthem, dermatophytosis, cellulitis, eczema, impetigo, contact dermatitis and other (angular cheilitis, periorbital dermatitis) Critical Care Time Critical Care Time Critical Care Time: No Discharge Plan Discharge Clinical Impression: Angular cheilitis Patient Disposition: Home, Self-Care Condition: Stable Additional Instructions: Please use clotrimazole cream twice daily in the corners of your mouth. You may need to use this for up to 3 weeks. Otherwise during the day if you feel that your lips are dry you may use only Vaseline to keep them moist. If after 1 week your not seeing an improvement, please follow-up with your PCP. Your blood pressure was elevated above 120/80 today at Urgent Care. This puts you above the threshold for follow up. Please schedule a followup visit with your personal physician as soon as possible, for further evaluation and treatment. Even blood pressure exceeding 120/80 may indicate pre-hypertension. Patient Language: Italian Follow-up/Referrals: UNKNOWN,DOCTOR [Primary Care Provider] - Time of Disposition: 08:56
== END 2024-10-07 09:04 | disposition home or self-care (01) ==
PROVIDERS: Emergency Provider Nurse Practitioner
DX: K13.0 Diseases of lips (principal)
CPT/HCPCS: 99211; G0463

== ENCOUNTER 2024-11-26 08:21 | Emergency (ER) | payer OTHER, SELFPAY ==
[2024-11-26 08:31] VITALS: BP 122/70; PULSE 91; RESP 18; TEMP 36.3; O2SAT 100
--- OUTSIDE RECORDS SUMMARY | 2024-11-26 08:32 | XMS_ITS | Clinical Summary ---
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
--- OUTSIDE RECORDS SUMMARY | 2024-11-26 08:32 | XMS_ITS | Referral Summary ---
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
--- OUTSIDE RECORDS SUMMARY | 2024-11-26 08:33 | XMS_ITS | Encounter Summary ---
Author Organization [facility] Address [address] [facility] [facility] [place] [address] Phone Care Team Providers Care Display And Banner Designer Name Role Phone Catina Ram MD Unavailable Andrew Brownlee MD Primary Care Provider [phone] Reason for Visit * Reason Comments Medication Refill Encounter Details Date Type Department Care Team (Late st Contact Info) Description 07/25/2021 Refill [facility] - Family Medicine - [place] [address] [place] [id number] Andrew Brownlee MD [address] [place] [address] Medication Refill Social History Tobacco Use Types [...] Dept 01/28/21 Office Visit Andrew Brownlee MD [facility] Showing recent visits within past 182 days and meeting all other requirements Future Appointments No visits were found meeting these conditions. 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
--- OUTSIDE RECORDS SUMMARY | 2024-11-26 08:33 | XMS_ITS | Clinical Summary ---
Author Organization [facility] Address [address] [place] [address] Care Team Providers Care Multicut Line Operator Name Role Phone Bridget Haji MD Primary Care Provider Source Comments [facility],non-owned Affiliates and Associated Physician Practices is amultiple site organization consisting of ambulatory clinics and hospital sitesin [place], [place], [place] and [place]. This disclosure is being madepursuant to the Care Everywhere program and may not contain all information available regarding this patient. Last updated 18.[facility] Allergies Active Allergy Reactions Criticality Noted Date Comments Penicillins Swelling 06/13/2011 Medications * Be aware that medications may not be up to date on this document. Alwaysverify current medications with the patient. Vit-Fe Fumarate-FA ( VITAMIN) 28-0.8 MG tablet [...] 06/13/2011 Overview (06/13/2011): Urine culture pending Immunizations Immunization Administration Dates Next Due INFLUENZA VACCINE 06/14/2011 [...] drink = 0.6 oz pur e alcohol) Comments No Sex and Gender Information Value Date Recorded Sex Assigned at Not on file Legal Sex Female 12:48 PM BUYING AGENT Gender Identity Not on file Sexual Orientation Not on file Last Filed Vital Signs Vital Sign Reading Time Taken Comments Blood Pressure 129/61 06/14/2011 11:14 AM BUYING AGENT Pulse 116 06/13/2011 8:45 PM BUYING AGENT Temperature 35.8 C (96.5 F) 06/14/2011 7:25 AM BUYING AGENT Respiratory Rate 18 06/14/2011 7:25 AM BUYING AGENT Oxygen Saturation - - Inhaled Oxygen Concentration - - Weight 68 kg (150 lb) 06/13/2011 3:25 PM BUYING AGENT Height 160 cm (5' 3 ) 06/13/2011 3:25 PM BUYING AGENT Body Mass Index 26.57 06/13/2011 3:25 PM BUYING AGENT Plan of Treatment Health Maintenance Due Date Last Done Comments HIV SCREENING 2006 HEPATITIS C SCREENING 03/13/2009 DTAP/TDAP/TD VACCINES (1 - Tdap) 2010 HEPATITIS B VACCINE (1 of 3 - 19+ 3-dose series) 2010 COVID-19 VACCINE ( - 2023-2 5 season) 2024 DEPRESSION SCREENING 07/24/2024 INFLUENZA VACCINE (Season Ended) 2025 06/14/20 11 ZOSTER VACCINE (1 of 2) 2041 HIB [...] patient's age to complete this topic Insurance [facility] [place] [address] [place] [address] MEDICAID - OUT OF STATE Advance Directives * FULL RESUSCITATION (Latest Code Status on File) Date Activated Date Inactivated Comments 06/13/2011 4:49 PM 06/15/2011 1:40 AM Care Teams Multicut Line Operator Relationship Specialty Start Date End Date Bridget Haji MD [address] [address] PCP - General 01/15/18
--- OUTSIDE RECORDS SUMMARY | 2024-11-26 08:33 | XMS_ITS | Data Portability ---
Author Organization [facility] MICHELLEVeena Swartz Address [address] [place] [address] Care Team Providers Care Audiology Assistant Name Role Phone HAWK FORMAN Primary Care Provider Unavail able Assessment Encounter Date Assessment Date Assessment LastModified by Organization Details LastModified Time 06/11/2015 06/11/2015 Assessment: 25 yo P1 for routine dog licenser visit Plan Pelvic US for location of IUD Counseled regarding prevention of STD's Counseled regarding contraceptive options Advised avoidance of tobacco, alcohol, and drugs BSE reviewed and recommended. [email or web address] Not available 06/11/2015 20:32:45 Plan of Treatment Reminders Order Date Submit Date Provider Last Modified By Organization Details Last Modified Time Details Appointments None recorded. Lab TSH, ultra-sensi tive, serum 2023 [facility], [address] [place] [address], [address], 4 06:20:38 HbA1c (hemoglobin A1c), blood 2023 024 [facility], [address] [place] [address], [address], 4 06:20:39 lipid panel, serum 2023 024 [facility], [address] [place] [address] 2, [place], [address], 4 06:20:35 CMP, serum or plasma 2023 024 [facility], [address] [place] [address] [place], [address], 4 06:20:36 bacterial vaginosis + vaginitis panel, vaginal 2014 015 [facility], [address] [facility], [address], [place], [address], 5 12:05:18 Referral wood drill operator referral 2023 024 lenny Dunn [facility], [address] [facility], [address], [place], [address], 5 15:43:47 plastic surgeon referral 2020 021 [email or web address] 6 Alec Whiteside MD, [address] [facility] [place], [address], 1 16:03:16 Procedures None recorded. Surgeries None recorded. Imaging ultrasound, complete pelvic 2014 015 [facility] (Radiology), [address] [facility] , [place], [address], 5 15:02:11 Medication Orders sertraline 50 mg tablet 2023 024 [facility][id number], [address] [address], [place], [address], 4 17:38:22 naltrexone 50 mg tablet 2023 024 [id number], [address] , [place], [place], [id number], 4 17:37:09 bupropion HCl XL 150 mg 24 hr tablet, extended release 2023 024 [facility][id number], [address], [place], [place], [id number], 4 17:37:07 Patient TargetsNo targets recorded. Patient Instructions Encounter Date Encounter Id Patient Instructions Last Modified By Organization Details Last Modified Time 06/11/2015 [id number] Patient was informed that the IUD string was not located, as such an ultrasound would be needed to rule out displaced IUD. [email or web address] Not available 06/11/2015 20:18:27 11/06/2020 [id number] skin lesions: ca re instructions [email or web address] Not available 11/06/2020 11:53:56 05/28/2024 [id number] A healthy lifestyle: care instructions [email or web address] Not available 05/28/2024 10:39:37 07/11/2024 [id number] Attending Physician Attestation I did not personally [...] Elizabeth García, Internal Medicine, Encounter Date: 11/06/2020 Tool Salvage Worker Referral for Frac ture of distal end of fibula Referring Physician: Cricket Mukherjee, Housekeeper Caregiver, Encounter Date: 07/11/2024 Results Created Date Observation Date Name Description Value Unit Range Abnormal Flag Note LastModifiedBy Organization Detail LastModifiedTime 05/28/20 24 05/29/2024 LIPID PANEL cholesterol, total 166 mg/dL 100-19 9 Not Available [facility] ([facility]) [address] [facility], [place], [address], 05/29/2024 06:20:35 05/28/20 24 05/29/2024 LIPID PANEL triglyceride s 84 mg/dL 0-149 Not Available [facility] ([facility]) [address] [facility], [place], [address], 05/29/2024 06:20:35 05/28/20 24 05/29/2024 LIPID PANEL HDL cholesterol 45 mg/dL >39 Not Available [facility] ([facility]) [address] [facility] [place], [address], 05/29/2024 06:20:35 05/28/20 24 05/29/2024 LIPID PANEL VLDL cholesterol yan 16 mg/dL 5-40 Not Available [facility] ([facility]) [address] [facility] [place], [address], 05/29/2024 06:20:35 05/28/20 24 05/29/2024 LIPID PANEL LDL chol calc ([facility]) 105 mg/dL 0-99 above high normal Not Available [facility] ([facility]) [address] [facility] [place], [address], 05/29/2024 06:20:35 05/28/20 24 05/29/2024 COMP. METAB OLIC PANEL (14) glucose 68 mg/dL 70-99 below low normal Not Available [facility] ([facility]) [address] [place], [address], 05/29/2024 06:20:36 05/28/20 24 05/29/2024 COMP. METAB OLIC PANEL (14) BUN 10 mg/dL 6-20 Not Available [facility] ([facility]) [address] [place], [address], 05/29/2024 06:20:36 05/28/20 24 05/29/2024 COMP. METAB OLIC PANEL (14) creatinine 0.70 mg/dL 0.57-1 .00 Not Available [facility] ([facility]) [address] [place], [address], 05/29/2024 06:20:36 05/28/20 24 05/29/2024 COMP. METAB OLIC PANEL (14) eGFR 117 mL/mi n/1.7 3 >59 Not Available [facility] ([facility]) [address] [place], [address], 05/29/2024 06:20:36 05/28/20 24 05/29/2024 COMP. METAB OLIC PANEL (14) BUN/creatini ne ratio 14 9-23 Not Available [facility] ([facility]) [address] [facility] [place], [address], 05/29/2024 06:20:36 05/28/20 24 05/29/2024 COMP. METAB OLIC PANEL (14) sodium 141 mmol/ L 134-14 4 Not Available [facility] ([facility]) [address] [facility] [place], [address], 05/29/2024 06:20:36 05/28/20 24 05/29/2024 COMP. METAB OLIC PANEL (14) potassium 4.3 mmol/ L 3.5-5. 2 Not Available [facility] ([facility]) [address] [facility], [place], [address], 05/29/2024 06:20:36 05/28/20 24 05/29/2024 COMP. METAB OLIC PANEL (14) chloride 104 mmol/ L 96-106 Not Available [facility] ([facility]) [address] [facility] [place], [address], 05/29/2024 06:20:36 05/28/20 24 05/29/2024 COMP. METAB OLIC PANEL (14) carbon dioxide, total 24 mmol/ L 20-29 Not Available [facility] ([facility]) [address] [place], [address], 05/29/2024 06:20:36 05/28/20 24 05/29/2024 COMP. METAB OLIC PANEL (14) calcium 9.4 mg/dL 8.7-10 .2 Not Available [facility] ([facility]) [address] [place], [address], 05/29/2024 06:20:36 05/28/20 24 05/29/2024 COMP. METAB OLIC PANEL (14) protein, total 6.8 g/dL 6.0-8. 5 Not Available [facility] ([facility]) [address] [facility], [place], [address], 05/29/2024 06:20:36 05/28/20 24 05/29/2024 COMP. METAB OLIC PANEL (14) albumin 4.4 g/dL 3.9-4. 9 Not Available [facility] ([facility]) [address] [facility] [place], [address], 05/29/2024 06:20:36 05/28/20 24 05/29/2024 COMP. METAB OLIC PANEL (14) globulin, total 2.4 g/dL 1.5-4. 5 Not Available [facility] ([facility]) [address] [facility] [place], [address], 05/29/2024 06:20:36 05/28/20 24 05/29/2024 COMP. METAB OLIC PANEL (14) bilirubin, total <0.2 mg/dL 0.0-1. 2 Not Available [facility] ([facility]) [address] [facility] [place], [address], 05/29/2024 06:20:36 05/28/20 24 05/29/2024 COMP. METAB OLIC PANEL (14) alkaline phosphatase 96 IU/L 44-121 Not Available [facility] ([facility]) [address] [facility] [place], [address], 05/29/2024 06:20:36 05/28/20 24 05/29/2024 COMP. METAB OLIC PANEL (14) AST (SGOT) 21 IU/L 0-40 Not Available [facility] ([facility]) [address] [facility] [place], [address], 05/29/2024 06:20:36 05/28/20 24 05/29/2024 COMP. METAB OLIC PANEL (14) ALT (SGPT) 16 IU/L 0-32 Not Available [facility] ([facility]) [address] [facility], [place], [address], 05/29/2024 06:20:36 05/28/20 24 05/29/2024 TSH RFX ON ABNOR MAL TO FREE T4 TSH 2.850 uIU/m L 0.450- 4.500 Not Available [facility] ([facility]) [address] [facility], [place], [address], 05/29/2024 06:20:38 05/28/20 24 05/28/2024 HEMOG LOBIN A1C hemoglobin A1C 5.5 % 4.8-5. 6 Predi abete s: 5.7 - 6.4 Diabe fan: >6.4 Glyce jacqueline contr ol for adult s with diabe fan: <7.0 Not Available [facility] ([facility]) [address] [facility], [place], [address], 05/29/2024 06:20:39 07/10/20 15 07/09/2015 ultra sound , compl ete pelvi c No observ ation record ed. [email or web address] [address], [address], 07/15/2015 09:42:13 Result Notes None recorded. Problems Name Problem SNOMED Code Status Onset Date Resolution Date Notes Provider Name and Address Organization Details Recorded Time Overweight 537261158 Active 2023 Hawk Forman MD Attn: Accounting ,[address] [place], [address] , [facility] - [facility] 4 01:32:20 Generalized anxiety disorder 00942051 Active 2023 Hawk Forman MD Attn: Accounting ,[address] [place], [address] , [place] [facility] 4 01:32:22 Chronic back pain 737883202 Active 2023 Hawk Forman MD Attn: Accounting ,[address] [place], [address] , [facility] - [place] 4 01:32:25 Fracture of distal end of fibula 097131784 Active 2023 Cricket Mukherjee MD Attn: Accounting ,[address] [facility], [place], [address] , [facility] - [facility] 4 17:36:53 Urinary tract infectious disease 79859033 Active SAMANTHA Garcia[place] 5 16:32:12 Problem Notes None recorded. Procedures Surgical History Date Name Laterality Status Provider Name and Address Organization Details Recorded Time 03/15/2020 Date of Last Pap Smear completed Ed Lynch [place] 11/06/2020 11:29:54 Imaging Results Imaging Date Name Status LastModified by Organiz ation Details LastModified Time 07/09/2015 ultrasound, complete pelvic completed [address], [address], 07/15/2015 09:42:13 Procedure Notes None recorded. Medical Equipment None Reported. Allergies Allergen ID Allergen Name Allergen Category Reaction Reaction Severity Criticality Documentation Date Start Date Code Code System Note Provider Name and Address Organization Details Recorded Time 020680 Product containin g penicilli n (product) medicatio n rash Not available Not available 11/06/2020 21461 8001 SNOMED SAMANTHA Grace[place] 11:27:49 Medications Name Sig Start Date Stop Date [...] Updated DateTime 1 161.93 cm 25.1 kg/m2 54951.3 2 g 98.1 [degF] 100 % 100 % 84 /min 102 mm[Hg] 60 mm[Hg] Ed Lynch [place] - [facility] 1 11:35:17 Date Recorded Body weight Body height Body temperature Heart rate Body mass index (BMI) Systolic blood pressure Diastolic blood pressure Provider Name and Address Organization Details Last Updated DateTime 5 96041.9 6995 g 160.02 cm 98.2 [degF] 62 /min 23.9 kg/m2 114 mm[Hg] 58 mm[Hg] Alyson Quiles MA [facility] 5 11:38:08 Date Recorded Body height Body mass index (BMI) Body weight Heart rate Respiratory rate Body temperature Systolic blood pressure Diastolic blood pressure Provider Name and Address Organization Details Last Updated DateTime 4 162.56 cm 29.6 kg/m2 56774.9 4 g 84 /min 18 /min 98.3 [degF] 110 mm[Hg] 74 mm[Hg] Jennifer Gamboa MA [facility] 4 09:43:34 Date Recorded Body height Body mass index (BMI) Body weight Heart rate Oxygen saturation Oxygen saturation in Arterial blood by Pulse oximetry Body temperature Respiratory rate Systolic blood pressure Diastolic blood pressure Provider Name and Address Organization Details Last Updated DateTime 4 162.56 cm 29.7 kg/m2 06584.1 2 g 98 /min 99 % 99 % 98 [degF] 18 /min 115 mm[Hg] 76 mm[Hg] Melissa Kramer [facility] 4 17:12:12 Social History Question Answer Notes LastModified by Organizat ion Details LastModified Time Tobacco Smoking Status Never Smoker Ed Lynch MA [facility], [facility] 11/06/2020 11:29:27 What Is Your Level [...] Full Term 1 Living 1 Total 2 Immunizations Vaccine Type Date Status Note Provider Carlos vasquez and Address Organization Details Recorded Time Hib, unspecified formulation 6 completed SAMANTHA [place] - [facility] 11/21/2024 16:05:29 IPV 3 completed Kiara Cross [place], [place] [facility] 11/21/2024 16:05:29 IPV 1 completed Kiara Cross [place] [facility] 11/21/2024 16:05:29 MMR 5 completed SAMANTHA [place] [facility] 11/21/2024 16:05:29 MMR 2 completed SAM[place]TH[place] [facility] 11/21/2024 16:05:29 COVID-19, mRNA, LNP-S, PF, 30 mcg/0.3 mL dose 1 completed [place]TH[place] [facility] 11/21/2024 16:05:29 influenza, unspecified formulation 3 completed [place] [facility] 11/21/2024 16:05:29 Tdap 6 completed [place]TH[place] [facility] 11/21/2024 16:05:29 Tdap 3 completed [place] [facility] 11/21/2024 16:05:29 Tdap 5 completed Kiara Cross [place] [facility] 11/21/2024 16:05:29 Tdap 7 completed [place]TH[place] [facility] 11/21/2024 16:05:29 varicella 6 completed [place] [facility] 11/21/2024 16:05:29 DTP 5 completed [place] [facility] 11/21/2024 16:05:29 Hep B, unspecified formulation 8 completed Kiara Lorts, [place] [facility] 11/21/2024 16:05:29 Hep B, unspecified formulation 8 completed Kiara [place], [place] [facility] 11/21/2024 16:05:29 Hep B, unspecified formulation 8 completed Kiara [place], [place] [facility] 11/21/2024 16:05:29 OPV 2 completed Kiara L[place], [place] [facility] 11/21/2024 16:05:29 OPV 3 completed Kiara L[place], [place] [facility] 11/21/2024 16:05:29 OPV 5 completed Kiara De La Garz[place], [place] [facility] 11/21/2024 16:05:29 DTP-Hib 2 completed Kiara De [place] Gar[place], [place] [facility] 11/21/2024 16:05:29 DTP-Hib 2 completed Kiara De La [place], [place] [facility] 11/21/2024 16:05:29 DTP-Hib 1 completed Kiara De [place], [place] [facility] 11/21/2024 16:05:29 Influenza, split virus, trivalent, preservative 3 completed Kiara De La Gar[place], [place] [facility] 11/21/2024 16:05:29 Influenza, split virus, trivalent, PF 6 completed Kiara De La Gar[place], [place] [facility] 11/21/2024 16:05:29 Td (adult), 2 Lf tetanus toxoid, preservative free, adsorbed 3 completed Kiara De La Garzats, [place] [facility] 11/21/2024 16:05:29 DTaP 3 completed Kiara Lorts, [place] [facility] 11/21/2024 16:05:29 Influenza, split virus, quadrivalent, PF 2 completed Kiara Cross, [place] [facility] 11/21/2024 16:05:29 Influenza, split virus, quadrivalent, PF 1 completed Kiara Cross [place] sekou, [place] [facility] 11/21/2024 16:05:29 Influenza, split virus, quadrivalent, PF 7 completed Kiara Cross [place], [place] [facility] 11/21/2024 16:05:29 Past Encounters Encounter ID Performer Location Encounter Start Date Encounter Closed Date Diagnosis/Indication Diagnosis SNOMED-CT Code Diagnosis ICD10 Code Diagnosis Note [id number] MD Nate Ojeda [facility] ([place] [address]) 2 [facility] [address] [place] [address] 06/11/2015 11:18:51 06/12/2015 09:40:16 Family planning surveillance 195212305 Z30.09 Venereal d isease screening 876767835 Z11.3 [id number] Elizabeth aGrcía MD [facility] (Adult Med) [address] [place] [address] 11/06/2020 11:07:08 11/09/2020 12:41:14 Skin lesion 32668314 L98.9 One locates on the front neck about 1 cm in size, light pink in color, papilla in shape, another one locates on the left temporal scalp near the hair line about half cm in size, similar color and shape but smaller. Discussed with patient, she agreed for the referral. [id number] MD Nate Billings 14 IM 4 [facility] [address] [place] [address] 05/28/2024 09:26:23 06/07/2024 15:25:34 Overweight 260059387 E66.3 Chronic, uncontroll ed- Will attempt generic contrave for possible coverage Generalize d anxiety disorder 45541992 F41.1 Chronic, uncontroll ed- Will provide generic contrave (buproprio n component) to address anxiety Chronic back pain 139501 002 G89.29 Chronic, uncontroll edPt taking NSAIDs consistent ly for back pain [id number] MD Nate THOMPSON 14 IM 4 [facility] [address] [place] [address] 07/11/2024 16:50:01 07/19/2024 15:25:22 Generalized anxiety disorder 07539800 F41.1 did not tolerate wellbutrin return to sertraline 50 mg po odRTC 6 weeks Fracture o f distal end of fibula 372857688 S82.891A mild chip fracture to the lateral [...] Walls Member ID Guarantor Name 06/11/2015 1 [place] [id number] Radha Cheers [id number] Ken Cheers 06/11/2015 1 [place] [facility] Ken Cespedes [id number] Stefanobatool Rubina 11/06/2020 1 [facility] (MEDICAID HMO) [id number] Ken Cespedes [id number] Stefanobatool Rubina 05/28/2024 1 [facility] [place] Jalenna Rubina [id number] Stefanona Rubina 07/11/2024 1 [facility] [place] Jalenna Rubina [id number] lenna Rubina Notes Date Note Type Note Provider Name and Address Organization Details Recorded Time 11/06/2020 text/html Office visit, ne w patient, allergic to penicillins. 1 skin lesions . one on the front neck one on the left temporal scalp. 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 She reports on Monday she was at a [employer] course and was jumping and landed on her right foot, avulsing her R foot. She immediately felt pain. She reports going to [place] urgent care and had an X Ray [...] uncomfortable. SHABNAM BRIAN MD Attn: Accounting[address] [facility], [place], [address], [place] [facility] 07/18/2024 22:52:32 OBGyn Episode No OBEpisode recorded.
--- OUTSIDE RECORDS SUMMARY | 2024-11-26 08:33 | XMS_ITS | Continuity of Care Document ---
Author Organization [facility] Address [address] [place] [address] [place] [address] Phone Care Team Providers Care Certifed Refrigeration Operator Name Role Phone Alireza Fry MD Unavailable [...] Diagnoses Date Provider Providers Copied on Encounter [facility], [address], [address], tel:[phone] [facility] No Information 6 Ang Lay. [address], [place], [place], [address] , [place]. [phone] [facility], [address], [place], [place], [address], tel:[phone] [facility] No Information 6 Ang Lay. [address], [place], [place], [address] , [place]. tel:[phone] OFFICE/OUTPA TIENT VISIT, [facility], [address], [place], [place], [address], [place] tel:[phone] [facility] Anxiety (chief complaint) anxiety1 (chief complaint) anemia1 (chief complaint) Generalized anxiety disorderAnemia 6 Ang Lay. [address], [place], [place], [address] , [place]. tel:[phone] Referring Provider: Minnie Pandey [address], [place], [place], [address]. tel:[phone] OFFICE/OUTPA TIENT VISIT, [facility], [address], [place], [place], [address], [place] tel:[phone] [facility] anemia1 (chief complaint) anxiety1 (chief complaint) AnemiaGeneralized anxiety disorder 6 Ang Lay. [address], [place], [place], [address] , [place]. tel:[phone] Referring Provider: Minnie [address], [place], [place], [address]. tel:[phone] OFFICE/OUTPA TIENT VISIT, [facility], [address], [place], [place], [address], [place] tel:[phone] [facility] anxiety1 (chief complaint) nevus (chief complaint) Generalized anxiety disorderNevus, non-neoplastic 6 Ang Lay. [address], [place], [place], [address] , [place]. tel:[phone] Referring Provider: Minnie Pandey [address], [place], [place], [address]. tel:[phone] PREV VISIT, NEW, AGE 18-39 [facility], [address], [place], [place], [address], [place] tel:[phone] [facility] PHysical (chief complaint) Encounter for general adult medical exam w abnormal findingsGeneralized anxiety disorderInsomnia, unspecified 201 6 Ang Lay. [address] [facility] [address], [place], [place], [address] , . [phone] Referring Provider: Minnie Pandey [facility] A, [place], [place], [address]. tel:[phone] Family History Family Member Type Diagnosis Age At Onset Sister Problem (finding) Depression Mother Problem (finding) Alive and well Father Problem (finding) Coronary artery disease Mother Problem (finding) Depression Sister Problem (finding) Alive and well Payers Payer name Insurance type Covered green party ID Authoriza tion(s) No Information Social [...] Harley [address] [place], [phone] Ordered: Referrals: Julio Cesar Harley. Evaluate and [...] meds. Pt denies any crying spells Anxiety anemia1 Pt is mildly ane jacqueline. Pt [...] is able to deal with things better. nevus Pt has birthmark nevus on front [...]
--- OUTSIDE RECORDS SUMMARY | 2024-11-26 08:33 | XMS_ITS | Clinical Summary ---
Author Organization [facility] Address [address] [place] [address] Phone Care Team Providers Care Shoe Stainer Name Role Phone Catina Ram MD Unavailable [phone] Allergies Active Allergy Reactions Criticality Noted Date [...] (CCS) 10/20/2022 Pap Smear 10/20/2022 10/21/2019, 08/11/2017 SARS-COV-2 Immunization ( season) 2024 02/10/2021 Influenza Immunization (Season Ended) 2025 03/31/2022, 04/15/2021, 07/01/2017, Additional history exists DTaP/Tdap/Td Immunization (10 - Td or Tdap) [...] Priority Date/Time Associated Diagnosis Comments PATHOLOGY CYTOLOGY TELEPHONE QUOTATION CLERK Routine 08/11/2017 from Last 3 Months or Most Recently Relevant to Health Maintenance Results * PATHOLOGY CYTOLOGY TELEPHONE QUOTATION CLERK (08/11/2017) Specimen of unknown material (specimen) Walter [...] measures to stabilize the patient. Care Teams Shoe Stainer Relationship Specialty Start Date End Date Catina Ram MD Consulting Physician Obstetrics & Gynecology 05/16/16
--- OUTSIDE RECORDS SUMMARY | 2024-11-26 08:33 | XMS_ITS | Data Portability ---
Author Organization [facility] [employer], Main Office Address [address] [place] [address] Care Team Providers Care Bus Info Consultant Name Role Phone [facility] Referring Provider SHAAN VICENTE Primary Care Provider Assessment Encounter Date Assessment Date Assessment LastModified by Organization Details LastModified Time 07/11/2024 07/11/2024 This note is dictated and transcribed by [employer]. Retina Subspecialist variances may occur. Despite proofreading, typographical errors may occur. Occasional wrong-word or 'qthvb-j-eyui' substitutions may have occurred due to the inherent limitations of voice recording. Read the chart carefully and recognize, using context, where substitutions have occurred. Not available 07/11/2024 10:07:57 08/08/2024 08/08/2024 This note is dictated and transcribed by [employer]. Retina Subspecialist variances may occur. Despite proofreading, typographical errors may occur. Occasional wrong-word or 'atecu-e-ngzr' substitutions may have occurred due to the [...] or more view 025 08/08/19 25 [email or web address] [facility] [place], Formerly [facility] [address], [place], [address], 5 10:05:01 Medication Orders None record ed. Patient TargetsNo targets recorded. Patient InstructionsNo instructions recorded. Reason for Referral None Reported. Results Created Date Observation Date Name Description Value Unit Range Abnormal Flag Note LastModifiedBy Organization Detail LastModifiedTime 08/08/19 XR, ankle , 3 or more view No observ ation record ed. [email or web address] [facility] [place] [address] [facility] [address], [place], [address], 08/08/2024 10:05:01 Result Notes None recorded. Problems Name Problem SNOMED Code Status Onset Date Resolution Date Notes Provider Name and Address Organization Details Recorded Time Sprain of right ankle 178591379669539 05 Active 2023 Venkatesh Dunn DPM [address] [facility], [place], [address], [employer] 4 10:08:06 Fracture of distal end of fibula 046119930 Active 2023 Venkatesh Dunn DPM [address] [facility] [facility], [place], [address], [employer] 4 10:09:22 Problem Notes None recorded. Procedures Surgical History None recorded. Imaging Results Imaging Date Name Status LastModified by Organiz ation Details LastModified Time 08/08/2024 XR, ankle, 3 or more view completed [email or web address] [facility] [place] [address], [place], [address], 08/08/2024 10:05:01 Procedure Notes None recorded. Medical Equipment None Reported. Allergies Allergen ID Allergen Name Allergen Category Reaction Reaction Severity Criticality Documentation Date Start Date Code Code System Note Provider Name and Address Organization Details Recorded Time 01247 Product containin g penicilli n (product) medicatio n Not available Not available Not available 07/11/2024 69052 8001 SNOMED Regi Antunez null, [place] [facility] [employer] 4 10:48:43 Medications Name Sig Start Date [...] % 127 mm[Hg] 70 mm[Hg] Crissy Harrell [employer] 4 09:29:55 Date Recorded Body height Body mass index (BMI) Body weight Provider Name and Address Organization Details Last Updated DateTime 07/11/2024 160.02 cm 31.2 kg/m2 50536.26 g Regi Antunez [employer] 07/11/2024 10:48:27 Date Recorded Body height Body mass index (BMI) Body weight Heart rate Respiratory rate Oxygen saturation Oxygen saturation in Arterial blood by Pulse oximetry Systolic blood pressure Diastolic blood pressure Provider Name and Address Organization Details Last Updated DateTime 5 160.02 cm 31.2 kg/m2 53161.2 6 g 82 /min 14 /min 99 % 99 % 109 mm[Hg] 55 mm[Hg] Crissy Harrell [employer] 5 09:45:25 Social History Question Answer Notes LastModified by Organizat ion Details LastModified Time Tobacco Smoking Status Never Smoker Regi sapp, [place] - [facility] 07/11/2024 10:49:51 What Is Your Level Of [...] SNOMED-CT Code Diagnosis ICD10 Code Diagnosis Note [id number] Venkatesh Dunn DPM [facility] Pod[facility] [address] [address] 07/11/2024 09:14:12 07/22/2024 09:29:12 Sprain of right ankle 0110633169 4014065 S93.401A x-rays reviewed- chip fracture distal fibulacont inue cam boot- daily when walking for 4-5 weeksrice therapyfol low-up 4-5 weeks Fracture o f distal end of fibula 870912512 S82.891A x-rays reviewed- stable chip fracture distal fibula [id number] Venkatesh Dunn DPM [facility] [place] [address] [place] [address] 08/08/2024 09:17:48 08/19/2024 10:48:38 Sprain of right ankle 1456426195 3357205 S93.401A resolvedco ntinue supportive shoe gearfollow -up as needed Fracture o f distal end of fibula 733868155 S82.891A x-rays reviewed- stable chip fracture distal fibula- healedas above Health Concerns Section Related Observation LastModified by Organization Detai ls LastModified Time None Recorded Concern Status LastModified by Organization Details LastModified Time None Recorded Advance Directives Directive None Recorded Payers Encounter Date Sequence Insurance Name Policy Number Policy Walls Covered Member ID Walls Member ID Guarantor Name 07/11/2024 1 [facility] Cespedes [id number] Ken Cespedes 08/08/[address] [facility] Ken Cespedes [id number] Ken Cespedes Notes Date Note Type Note [...] occurred on 07/06/2024 Venkatesh Dunn DPM [address] [facility], [facility] [address], [place], [address], [employer] 07/11/2024 11:18:50 08/08/2024 text/html . Patient is a 34-year-old female who returns the office for follow-up on ankle sprain and chip fracture. Patient is in normal shoe gear she has continued walking and working she states she is not having any discomfort at all with weight-bearing she denies any giving out of the ankle. Patient denies any other complaints. Venkatesh Dunn DPM [address], [facility] [address], [place], [address], [employer] 08/08/2024 10:05:12 OBGyn Episode No OBEpisode recorded.
--- OUTSIDE RECORDS SUMMARY | 2024-11-26 08:33 | XMS_ITS | Encounter Summary ---
Author Organization [facility] Address [address] [place] [address] Phone Care Team Providers Care Substation Operator Helper Generation Name Role Phone Catina Ram MD Unavailable [phone] Andrew Brownlee MD Primary Care Provider [phone] Reason for Visit * Reason Comments Medication Refill Encounter Details Date Type Department Care Team (Late st Contact Info) Description 05/16/2021 Refill [facility] [address] [place] [address] Andrew Brownlee MD [address] [place] [address] Medication Refill Social History Tobacco Use Types [...] Dept 01/28/21 Office Visit Andrew Brownlee MD [facility] Showing recent visits within past 182 days [...] documented as of this encounter Care Teams Substation Operator Helper Generation Relationship Specialty Start Date End Date Andrew Brownlee MD PCP - General Family Medicine 01/14/19 04/10/24 Catina Ram MD Consulting Physician Obstetrics & Gynecology 05/16/16 documented as of this encounter
--- OUTSIDE RECORDS SUMMARY | 2024-11-26 08:35 | XMS_ITS | Continuity of Care Document ---
Author Organization [facility] Address [address] [place] [address] Phone Care Team Providers Care Rivet Sticker Name Role Phone Alireza Fry MD Unavailable [...] Diagnoses Date Provider Providers Copied on Encounter [facility], [address] [place], [address], tel:[phone] [facility] No Information 6 Ang Lay. [address], [place], [place], [address] , [place]. [phone] [facility], [address], [place], [place], [address], tel:[phone] [facility] No Information 6 Ang Lay. [address], [place], [place], [address] , [place]. tel:[phone] OFFICE/OUTPA TIENT VISIT, [facility], [address], [place], [place], [address], [place] tel:[phone] [facility] Anxiety (chief complaint) anxiety1 (chief complaint) anemia1 (chief complaint) Generalized anxiety disorderAnemia 6 Ang Lay. [address], [place], [place], [address] , [place]. tel:[phone] Referring Provider: Minnie Pandey [address], [place], [place], [address]. tel:[phone] OFFICE/OUTPA TIENT VISIT, [facility], [address], [place], [place], [address], [place] tel:[phone] [facility] anemia1 (chief complaint) anxiety1 (chief complaint) AnemiaGeneralized anxiety disorder 6 Ang Lay. [address], [place], [place], [address] , [place]. tel:[phone] Referring Provider: [address], [place], [place], [address]. tel:[phone] OFFICE/OUTPA TIENT VISIT, [facility], [address], [place], [place], [address], [place] tel:[phone] [facility] anxiety1 (chief complaint) nevus (chief complaint) Generalized anxiety disorderNevus, non-neoplastic 6 Ang Lay. [address], [place], [place], [address] , [place]. tel:[phone] Referring Provider: Minnie Pandey [address], [place], [place], [address]. tel:[phone] PREV VISIT, NEW, AGE 18-39 [facility], [address], [place], [place], [address], [place] tel:[phone] [facility] Family Medicine PHysical (chief complaint) Encounter for general adult medical exam w abnormal findingsGeneralized anxiety disorderInsomnia, unspecified 201 [address] [facility] [address], [place], [place], [address] , . tel:[phone] Referring Provider: Minnie Pandey [facility] [address], [place], [place], [address]. tel:[phone] Family History Family Member Type Diagnosis Age [...] [address] [address] [place], [phone] Ordered: Referrals: Julio Cesar Harley. Evaluate and [...]
[2024-11-26 08:54] LABS: EDUAAPPEAR Cloudy; EDUABILI 1+ (Negative); EDUABLOOD 3+ (Negative); EDUACOLOR1 Amber; EDUAGLUCOSE Negative (Negative); EDUAKETONE Trace (Negative); EDUALEUKO Negative (Negative); EDUANITRATE Negative (Negative); EDUAPROTEIN 2+ (Negative); EDUAUROBILI 0.2
--- NOTE | 2024-11-26 09:08 | ED_ITS ---
HPI - General Adult General Chief complaint: Urogenital-Female Stated complaint: Urinary Problem Source: patient Mode of arrival: ambulatory Limitations: no limitations History of Present Illness HPI narrative: Patient presents for evaluation of left flank pain. Symptom onset this morning. Pain radiates into the left side of the abdomen. Pain is sharp and 10/10 in severity. She reports urinary frequency, dribbling and hematuria. Denies any dysuria, vaginal bleeding and discharge. LMP about one month ago. She has a history of kidney stones and this feels similar. Related Data Home Medications ?Medication ?Instructions ?Recorded ?Confirmed ?Last Taken ?Type No Home Medications 11/26/24 11/26/24 Unknown History Allergies Allergy/AdvReac Type Severity Reaction Status Date / Time Penicillins Allergy Intermediate Hives Verified 11/26/24 08:43 Review of Systems Review of Systems: CONSTITUTIONAL: Denies fever, chills, or sweats. EYES: Denies visual changes, redness, or discharge. ENT: Denies rhinorrhea, congestion, sore throat, or otalgia. CARDIOVASCULAR: Denies chest pain, palpitations, or edema. RESPIRATORY: Denies cough or dyspnea. GASTROINTESTINAL: Reports left-sided abdominal pain. Denies nausea, vomiting, or diarrhea. GENITOURINARY: Reports urinary frequency, dribbling, hematuria. Denies any dysuria, vaginal bleeding or discharge.. SKIN: Denies rash or itching. MUSCULOSKELETAL: Reports left flank pain. He NEUROLOGIC: Denies headache, numbness, dizziness, or weakness. PSYCHIATRIC: Denies anxiety or depression. [facility] Past Medical History Medical History History of kidney stones Chronic back pain UTI (urinary tract infection) Depression Surgical History Surgical History H/O breast augmentation Family History Family History Mother No active medical problems Social History Social History Smoking status: Never smoker Alcohol intake: current Alcohol use details: rare social Substance use: never Living arrangements: alone Gender identity (if verbalized by the patient): Female Spiritual care concerns: No Exam Narrative: GENERAL: Visually uncomfortable but well-nourished. HEAD: Normocephalic, atraumatic. EYES: PERRLA and EOMI. ENT: Nares clear, no rhinorrhea or epistaxis. Mucous membranes moist. Oropharynx without tonsillar hypertrophy exudate or other lesions. Bilateral TMs pearly redd nonbulging NECK: Supple. No adenopathy or masses. No carotid bruits or JVD CHEST: Clear to auscultation. No respiratory distress. No wheezes rales or rhonchi HEART: Regular rate and rhythm. No murmur heard. Normal peripheral pulses. ABDOMEN: Soft, nontender, nondistended, normal active bowel sounds. BACK: There is left sided CVA tenderness EXTREMITIES: Normal range of motion. No edema. SKIN: Warm, dry, no rash. NEURO: No focal deficits. Alert and oriented x3. PSYCH: Normal mood and affect. Course Course Emergency Course: This is a 34-year-old female who presented for evaluation of left flank pain. Her urine today does not have evidence of infection but does have blood. I suspect she has a kidney stone. I recommended she be transferred to the hospital for further evaluation and treatment. She is agreeable to this plan. [facility] is her facility of choice. I contacted [facility] and spoke with Dr Veloz who agrees to accept pt for transfer. Pt was transferred via private vehicle. Level of Care: Express Care Visit Vital Signs Vital signs: Vital Signs Temperature 36.3 C L 11/26/24 08:31 Pulse Rate 91 11/26/24 08:31 Respiratory Rate 18 11/26/24 08:31 Blood Pressure 122/70 11/26/24 08:31 Pulse Oximetry 100 11/26/24 08:31 Oxygen Delivery Room Air 11/26/24 08:31 Temperature 36.3 C L 11/26/24 08:31 Pulse Rate 91 11/26/24 08:31 Respiratory Rate 18 11/26/24 08:31 Blood Pressure 122/70 11/26/24 08:31 Pulse Oximetry 100 11/26/24 08:31 Oxygen Delivery Room Air 11/26/24 08:31 Medical Decision Making Vital Signs Vital Signs: Vital Signs Temperature 36.3 C L 11/26/24 08:31 Pulse Rate 91 11/26/24 08:31 Respiratory Rate 18 11/26/24 08:31 Blood Pressure 122/70 11/26/24 08:31 Pulse Oximetry 100 11/26/24 08:31 Oxygen Delivery Room Air 11/26/24 08:31 Temperature 36.3 C L 11/26/24 08:31 Pulse Rate 91 11/26/24 08:31 Respiratory Rate 18 11/26/24 08:31 Blood Pressure 122/70 11/26/24 08:31 Pulse Oximetry 100 11/26/24 08:31 Oxygen Delivery Room Air 11/26/24 08:31 Lab Data Labs: Lab Results 11/26/24 11/26/24 11/26/24 Range/Units 08:52 08:52 08:52 POC Urine Color Lina Lina POC Urine Clarity Cloudy Cloudy POC Urine pH 6.0 POC Ur Specif [place] POC Urine Protein (Negative) POC Ur Glucose (UA) (Negative) POC Urine Ketones (Negative) POC Urine Blood (Negative) POC Urine Nitrite (Negative) POC Urine Bilirubin (Negative) POC Urine Urobilinogen POC U Leukocyte Esteras (Negative) 11/26/24 11/26/24 11/26/24 Range/Units 08:52 08:52 08:52 POC Urine Color POC Urine Clarity POC Urine pH 6.0 POC Ur Specif [place] 1.030 1.030 POC Urine Protein 2+ 2+ (Negative) POC Ur Glucose (UA) Negative (Negative) POC Urine Ketones (Negative) POC Urine Blood (Negative) POC Urine Nitrite (Negative) POC Urine Bilirubin (Negative) POC Urine Urobilinogen POC U Leukocyte Esteras (Negative) 11/26/24 11/26/24 11/26/24 Range/Units 08:52 08:52 08:52 POC Urine Color POC Urine Clarity POC Urine pH POC Ur Specif [place] POC Urine Protein (Negative) POC Ur Glucose (UA) Negative (Negative) POC Urine Ketones Trace Trace (Negative) POC Urine Blood 3+ 3+ (Negative) POC Urine Nitrite Negative (Negative) POC Urine Bilirubin (Negative) POC Urine Urobilinogen POC U Leukocyte Esteras (Negative) 11/26/24 11/26/24 11/26/24 Range/Units 08:52 08:52 08:52 POC Urine Color POC Urine Clarity POC Urine pH POC Ur Specif [place] POC Urine Protein (Negative) POC Ur Glucose (UA) (Negative) POC Urine Ketones (Negative) POC Urine Blood (Negative) POC Urine Nitrite Negative (Negative) POC Urine Bilirubin 1+ 1+ (Negative) POC Urine Urobilinogen 0.2 0.2 POC U Leukocyte Esteras Negative (Negative) 11/26/24 Range/Units 08:52 POC Urine Color POC Urine Clarity POC Urine pH POC Ur Specif [place] POC Urine Protein (Negative) POC Ur Glucose (UA) (Negative) POC Urine Ketones (Negative) POC Urine Blood (Negative) POC Urine Nitrite (Negative) POC Urine Bilirubin (Negative) POC Urine Urobilinogen POC U Leukocyte Esteras Negative (Negative) Discharge Plan Discharge Clinical Impression: Acute left flank pain, Hematuria, Family history of kidney stone Patient Disposition: Acute Care Hospital Condition: Stable Patient Language: Luxembourgish Prescriptions: No Action No Home Medications Follow-up/Referrals: PHYSICIAN,CLIENT ARCHITECT [Primary Care Provider] - Time of Disposition: 09:07
== END 2024-11-26 09:10 | disposition short-term general hospital (02) ==
PROVIDERS: Emergency Provider Nurse Practitioner
DX: R10.9 Unspecified abdominal pain (principal); R31.9 Hematuria, unspecified; Z87.442 Personal history of urinary calculi
CPT/HCPCS: 81003; 99212; G0463

== ENCOUNTER 2024-11-26 10:06 | Emergency (ER) | payer OTHER, SELFPAY ==
--- NOTE | ~2024-11-26 | CT_ITS ---
EXAMINATION: CT abdomen pelvis wo con DATE: 11/26/2024 12:31 INDICATION: Left flank pain TECHNIQUE: Computed tomography (CT) of the abdomen and pelvis was performed without intravenous contr ast. Automated exposure control and iterative reconstruction technique were employed. The dose-length product was 432.24 mGy-cm. COMPARISON: None FINDINGS: Lung bases are clear. Heart size is normal. No pericardial or pleural effusion. Bilateral breast impl ants. Liver, gallbladder, spleen, pancreas, right kidney and bilateral adrenal glands are normal. 1 m m stone at an upper pole calyx of the left kidney. Mild left hydroureter without hydronephrosis exten ding to a 2-3 mm stone at the left ureterovesicular junction. There several phleboliths in the pelvis . Bladder is normal. Uterus and bilateral adnexa are unremarkable. Bowels including the appendix are normal.. No free intraperitoneal gas or fluid. No pathologically enlarged abdominal or pelvic lymphad enopathy. Bones are unremarkable. IMPRESSION: 1. Left nephrolithiasis with likely partially obstructing 2-3 mm stone at the left ureterovesicular j unction with mild left hydroureter but no hydronephrosis. Reviewed, dictated and finalized at location A. IMPRESSION: 1. Left nephrolithiasis with likely partially obstructing 2-3 mm stone at the l eft ureterovesicular junction with mild left hydroureter but no hydronephrosis.
[2024-11-26 10:12] VITALS: BP 130/66; PULSE 78; RESP 16; TEMP 36.2; O2SAT 100
[2024-11-26 10:53] LABS: BEDSIDEPREGUCG Negative (Negative)
[2024-11-26 10:56] LABS: Basophils Absolute Auto 0.1 K/mm3 (0.0-0.1); Basophils Percent Auto 0.4 % (0.2-1.2); Eosinophils Percent Auto 0.1 % (0-4.4); Hematocrit 35.8 % (37.0-47.0); Hemoglobin 11.1 g/dL (12.0-15.0); Immature Granulocyte Absolute 0.07 K/mm3 (0.00-0.031); Immature Granulocyte Percent A 0.6 % (0-0.5); Lymphocytes Absolute Auto 0.84 K/mm3 (0.9-3.2); Lymphocytes Percent Auto 6.7 % (18.3-44.2); Mean Corpuscular Hemoglobin 26.1 pg (26-34); Mean Corpuscular Volume 84.2 fl (80-100); Mean Platelet Volume 10.4 fl (7.4-10.4); Monocytes Absolute Auto 0.4 K/mm3 (0.1-0.6); Monocytes Percent Auto 3.4 % (2.6-8.5); Neutrophils Absolute Auto 11.2 K/mm3 (1.3-6.7); Neutrophils Percent Auto 88.8 % (45.5-73.1); Platelet Count Result 288 k/mm3 (150-375); Red Blood Count 4.25 M/mm3 (4.2-5.4); Red Cell Distribution Width 13.9 % (11.5-14.5); White Blood Count 12.6 K/mm3 (4.5-10.0)
--- OUTSIDE RECORDS SUMMARY | 2024-11-26 10:56 | XMS_ITS | Clinical Summary ---
Author Organization [facility] Address [address] [place] [address] Phone Care Team Providers Care Riveting Machine Operator Tape Control Name Role Phone Catina Ram MD Unavailable [phone] Allergies Active Allergy Reactions Criticality Noted [...] Priority Date/Time Associated Diagnosis Comments PATHOLOGY CYTOLOGY RETAIL PLANNING MANAGER Routine 08/11/2017 from Last 3 Months or Most Recently Relevant to Health Maintenance Results * PATHOLOGY CYTOLOGY RETAIL PLANNING MANAGER (08/11/2017) Specimen of unknown material (specimen) Walter [...] measures to stabilize the patient. Care Teams Riveting Machine Operator Tape Control Relationship Specialty Start Date End Date Catina Ram MD Consulting Physician Obstetrics & Gynecology 05/16/16
--- OUTSIDE RECORDS SUMMARY | 2024-11-26 10:56 | XMS_ITS | Encounter Summary ---
Author Organization [facility] Address [address] [facility] [place] [address] Phone Care Team Providers Care Book Cutter Name Role Phone Catina Ram MD Unavailable [phone] Andrew Brownlee MD Primary Care Provider [phone] Reason for Visit * Reason Comments Medication Refill Encounter Details Date Type Department Care Team (Late st Contact Info) Description 07/25/2021 Refill [facility] - Family Medicine - [place] [address] [place] [id number] Andrew Brownlee MD [address] [place] [address] Medication Refill Social History Tobacco Use Types [...] Dept 01/28/21 Office Visit Andrew Brownlee MD [facility] Showing recent visits within past 182 days and meeting all other requirements Future Appointments No visits were found meeting these conditions. Showing future appointments within next 90 days and meeting all other requirements Passed - Has an encounter in the past 6 months with a depression, anxiety, adjustment disorder, OCD, or PTSD visit diagnosis [employer]OR BUILDING documented in this encounter Plan of Treatment Not on file documented as of this encounter Visit Diagnoses Diagnosis Anxiety Anxiety state, unspecified documented in this encounter Additional Health Concerns Assessment Noted Time PHQ-9 Depression Total Score: 3 10/24/19 21 9:00 AM CDT documented as of this encounter Care Teams Book Cutter Relationship Specialty Start Date End Date Andrew Brownlee MD PCP - General Family Medicine 01/14/19 04/10/24 Catina Ram MD Consulting Physician Obstetrics & Gynecology 05/16/16 documented as of this encounter
--- OUTSIDE RECORDS SUMMARY | 2024-11-26 10:56 | XMS_ITS | Encounter Summary ---
Author Organization [facility] Address [address] [place] [address] Phone Care Team Providers Care Customs And Immigration Officer Name Role Phone Catina Ram MD Unavailable [phone] Andrew Brownlee MD Primary Care Provider [phone] Reason for Visit * Reason Comments Medication Refill Encounter Details Date Type Department Care Team (Late st Contact Info) Description 05/16/2021 Refill [facility] [address] [place] [address] Andrew Brownlee MD [address] [place] [address] Medication Refill Social History Tobacco Use Types [...] Dept 01/28/21 Office Visit Andrew Brownlee MD [facility] Showing recent visits within past [...] documented as of this encounter Care Teams Customs And Immigration Officer Relationship Specialty Start Date End Date Andrew Brownlee MD PCP - General Family Medicine 01/14/19 04/10/24 Catina Ram MD Consulting Physician Obstetrics & Gynecology 05/16/16 documented as of this encounter
--- OUTSIDE RECORDS SUMMARY | 2024-11-26 10:56 | XMS_ITS | Clinical Summary ---
Author Organization [facility] Address [address] [address] Care Team Providers Care Seater Grinder Name Role Phone Andrew Brownlee MD Primary Care Provider [phone] Allergies Active Allergy Reactions Criticality Noted Date [...] on file Legal Sex Female 5:50 PM SENIOR UNIX ADMINISTRATOR Gender Identity Not on file Sexual Orientation [...] to complete this topic Insurance [facility] Care Teams Seater Grinder Relationship Specialty Start Date End Date Andrew Brownlee MD [address] [address] PCP - General Family Medicine 08/31/22
--- OUTSIDE RECORDS SUMMARY | 2024-11-26 10:56 | XMS_ITS | Referral Summary ---
Author Organization [facility] Address [address] [place] [address] Care Team Providers Care Unhairing Machine Operator Name Role Phone Andrew Brownlee MD Primary Care Provider [phone] Allergies Active Allergy Reactions Criticality Noted Date [...] on file Legal Sex Female 5:50 PM PALLIATIVE SENIOR NP Gender Identity Not on file Sexual Orientation [...] Plan of Treatment Not on file Insurance [facility] Care Teams Unhairing Machine Operator Relationship Specialty Start Date End Date Andrew Brownlee MD [address] [address] PCP - General Family Medicine 08/31/22
--- OUTSIDE RECORDS SUMMARY | 2024-11-26 10:57 | XMS_ITS | Clinical Summary ---
Author Organization [facility] Address [address] [place] [address] Care Team Providers Care Volcanology Professor Name Role Phone Bridget Haji MD Primary Care Provider Source Comments [facility],non-owned Affiliates and Associated Physician Practices is amultiple site organization consisting of ambulatory clinics and hospital sitesin [place], [place], [place] and [place]. This disclosure is being madepursuant to the Care Everywhere program and may not contain all information available regarding this patient. Last updated 18.[facility] Allergies Active Allergy Reactions Criticality Noted Date [...] on file Legal Sex Female 12:48 PM JOINTER SUBMARINE CABLE Gender Identity Not on file Sexual Orientation Not on file Last Filed Vital Signs Vital Sign Reading Time Taken Comments Blood Pressure 129/61 06/14/2011 11:14 AM JOINTER SUBMARINE CABLE Pulse 116 06/13/2011 8:45 PM JOINTER SUBMARINE CABLE Temperature 35.8 C (96.5 F) 06/14/2011 7:25 AM JOINTER SUBMARINE CABLE Respiratory Rate 18 06/14/2011 7:25 AM JOINTER SUBMARINE CABLE Oxygen Saturation - - Inhaled Oxygen Concentration - - Weight 68 kg (150 lb) 06/13/2011 3:25 PM JOINTER SUBMARINE CABLE Height 160 cm (5' 3 ) 06/13/2011 3:25 PM JOINTER SUBMARINE CABLE Body Mass Index 26.57 06/13/2011 3:25 PM JOINTER SUBMARINE CABLE Plan of Treatment Health Maintenance Due Date [...] patient's age to complete this topic Insurance [facility] [place] [address] MEDICAID - OUT OF STATE Advance Directives * FULL RESUSCITATION (Latest Code Status on File) Date Activated Date Inactivated Comments 06/13/2011 4:49 PM 06/15/2011 1:40 AM Care Teams Volcanology Professor Relationship Specialty Start Date End Date Bridget Haji MD [address] [address] PCP - General 01/15/18
--- OUTSIDE RECORDS SUMMARY | 2024-11-26 10:57 | XMS_ITS | Continuity of Care Document ---
Author Organization [facility] Address [address] [place] [address] [place] [address] Phone Care Team Providers Care Library Services Coordinator Name Role Phone Alireza Fry MD Unavailable [...] Diagnoses Date Provider Providers Copied on Encounter [facility], [address] [place], [place], [address], tel:[phone] [facility] No Information 6 Ang Lay. [address], [place], [place], [address] , [place]. [phone] [facility], [address], [place], [place], [id number], tel:[phone] [facility] No Information 6 Ang Lay. [address], [place], [place], [address] , [place]. tel:[phone] OFFICE/OUTPA TIENT VISIT, [facility], [address], [place], [place], [address], [place] tel:[phone] [facility] Anxiety (chief complaint) anxiety1 (chief complaint) anemia1 (chief complaint) Generalized anxiety disorderAnemia 6 Ang Lay. [address], [place], [place], [address] , [place]. tel:[phone] Referring Provider: Minnie Pandey [address], [place], [place], [address]. tel:[phone] OFFICE/OUTPA TIENT VISIT, [facility], [address], [place], [place], [address], [place] tel:[phone] [facility] anemia1 (chief complaint) anxiety1 (chief complaint) AnemiaGeneralized anxiety disorder 6 Ang Lay. [address], [place], [place], [address] , [place]. tel:[phone] Referring Provider: Minnie Pandey [address], [place], [place], [address]. tel:[phone] OFFICE/OUTPA TIENT VISIT, [facility], [address], [place], [place], [address], [place] tel:[phone] [facility] anxiety1 (chief complaint) nevus (chief complaint) Generalized anxiety disorderNevus, non-neoplastic 6 Ang Lay. [address], [place], [place], [address] , [place]. tel:[phone] Referring Provider: Minnie Pandey [address], [place], [place], [address]. tel:[phone] PREV VISIT, NEW, AGE 18-39 [facility], [address], [place], [place], [address], [place] tel:[phone] [facility] PHysical (chief complaint) Encounter for general adult medical exam w abnormal findingsGeneralized anxiety disorderInsomnia, unspecified 201 6 Ang Lay. [address] [facility] [address], [place], [place], [address] , . tel:[phone] Referring Provider: Minnie Pandey [facility] A, [place], [place], [address]. tel:[phone] Family History Family Member Type Diagnosis Age At Onset Sister Problem (finding) Depression Mother Problem (finding) Alive and well Father Problem (finding) Coronary artery disease Mother Problem (finding) Depression Sister Problem (finding) Alive and well Payers Payer name Insurance type Covered libertarian ID Authoriza tion(s) No Information Social History [...] Harley [address] [place], [phone] Ordered: Referrals: Julio Cesar Harley. Evaluate and [...]
[2024-11-26 10:59] LABS: Add Urine Microscopic? YES; Appearance Urine Cloudy (Clear); Bacteria Urine None Seen /hpf; Bilirubin Urine Negative (Negative); Blood Urine 3+ (Negative); Color Urine Dark Yellow (Yellow); Glucose Urine UA Negative (Negative); Ketones Urine Trace mg/dL (Negative); Leukocyte Esterase Ur Trace LEU/UL (Negative); Nitrate Urine Negative (Negative); Protein Urine 2+ mg/dL (Negative); RBC Urine >100 /hpf (0-2); Specific Grav Ur 1.024 (1.001-1.035); Squamous Epithelial Cell Urine Occasional /hpf (Few); pH Urine 5.5 (5.0-9.0)
[2024-11-26 11:17] LABS: Alanine Aminotransferase 17 U/L (6-35); Albumin Level 4.6 g/dL (3.5-5.1); Alkaline Phosphatase 86 U/L (38-126); Anion Gap 10 mmol/L (4-12); Aspartate Amino Transferase 22 U/L (14-36); Bilirubin,Total 0.3 mg/dL (0.2-1.3); Blood Urea Nitrogen 11 mg/dL (7-17); Calcium 9.1 mg/dL (8.4-10.2); Carbon Dioxide 25 mmol/L (22-30); Chloride 104 mmol/L (98-107); Estimated CRCL calculation 95 ml/min; Estimated Glomerular Filt Rate > 60; Glucose 103 mg/dL (65-110); Potassium 4.3 mmol/L (3.4-5.0); Sodium 139 mmol/L (137-145)
[2024-11-26] MEDS: MORPHINE SULFATE (*CRX) 4 MG/ML INJ IV PUSH (12:10)
[2024-11-26] MEDS: ONDANSETRON INJ 4 MG/2 ML VIAL IV PUSH (12:11)
--- OUTSIDE RECORDS SUMMARY | 2024-11-26 12:27 | XMS_ITS | Referral Summary ---
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
--- OUTSIDE RECORDS SUMMARY | 2024-11-26 12:27 | XMS_ITS | Clinical Summary ---
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
--- OUTSIDE RECORDS SUMMARY | 2024-11-26 12:28 | XMS_ITS | Encounter Summary ---
Author Organization [facility] Address [address] [place] [address] Phone Care Team Providers Care Power Station Operator Name Role Phone Catina Ram MD Unavailable [phone] Andrew Brownlee MD Primary Care Provider [phone] Reason for Visit * Reason Comments Medication Refill Encounter Details Date Type Department Care Team (Late st Contact Info) Description 07/25/2021 Refill [facility] - Family Medicine - [place] [address] [place] [id number] Andrew Brownlee MD [address] [place] [address] Medication Refill Social History Tobacco Use Types [...] Dept 01/28/21 Office Visit Andrew Brownlee MD [facility] Showing recent visits within past 182 days and meeting all other requirements Future Appointments No visits were found meeting these conditions. Showing future appointments within next 90 days and meeting all other requirements Passed - Has an encounter in the past 6 months with a depression, anxiety, adjustment disorder, OCD, or PTSD visit diagnosis TRICAL DESIGN TECHNOLOGIST documented in this encounter Plan of Treatment Not on file documented as of this encounter Visit Diagnoses Diagnosis Anxiety Anxiety state, unspecified documented in this encounter Additional Health Concerns Assessment Noted Time PHQ-9 Depression Total Score: 3 10/24/19 21 9:00 AM CDT documented as of this encounter Care Teams Power Station Operator Relationship Specialty Start Date End Date Andrew Brownlee MD PCP - General Family Medicine 01/14/19 04/10/24 Catina Ram MD Consulting Physician Obstetrics & Gynecology 05/16/16 documented as of this encounter
--- OUTSIDE RECORDS SUMMARY | 2024-11-26 12:28 | XMS_ITS | Clinical Summary ---
Author Organization [facility] Address [address] [place] [address] Care Team Providers Care Servicing Manager Name Role Phone Bridget Haji MD Primary Care Provider Source Comments [facility],non-owned Affiliates and Associated Physician Practices is amultiple site organization consisting of ambulatory clinics and hospital sitesin [place], [place], [place] and [place]. This disclosure is being madepursuant to the Care Everywhere program and may not contain all information available regarding this patient. Last updated 18.[facility] Allergies Active Allergy Reactions Criticality Noted Date [...] on file Legal Sex Female 12:48 PM FLARE WORKER Gender Identity Not on file Sexual Orientation Not on file Last Filed Vital Signs Vital Sign Reading Time Taken Comments Blood Pressure 129/61 06/14/2011 11:14 AM FLARE WORKER Pulse 116 06/13/2011 8:45 PM FLARE WORKER Temperature 35.8 C (96.5 F) 06/14/2011 7:25 AM FLARE WORKER Respiratory Rate 18 06/14/2011 7:25 AM FLARE WORKER Oxygen Saturation - - Inhaled Oxygen Concentration - - Weight 68 kg (150 lb) 06/13/2011 3:25 PM FLARE WORKER Height 160 cm (5' 3 ) 06/13/2011 3:25 PM FLARE WORKER Body Mass Index 26.57 06/13/2011 3:25 PM FLARE WORKER Plan of Treatment Health Maintenance Due Date [...] patient's age to complete this topic Insurance [facility] [place] [address] MEDICAID - OUT OF STATE Advance Directives * FULL RESUSCITATION (Latest Code Status on File) Date Activated Date Inactivated Comments 06/13/2011 4:49 PM 06/15/2011 1:40 AM Care Teams Servicing Manager Relationship Specialty Start Date End Date Bridget Haji MD [address] [address] PCP - General 01/15/18
--- OUTSIDE RECORDS SUMMARY | 2024-11-26 12:28 | XMS_ITS | Clinical Summary ---
Author Organization [facility] Address [address] [place] [address] Phone Care Team Providers Care Brazing Furnace Feeder Name Role Phone Catina Ram MD Unavailable [phone] Allergies Active Allergy Reactions Criticality Noted [...] Priority Date/Time Associated Diagnosis Comments PATHOLOGY CYTOLOGY ROOTER OPERATOR Routine 08/11/2017 from Last 3 Months or Most Recently Relevant to Health Maintenance Results * PATHOLOGY CYTOLOGY ROOTER OPERATOR (08/11/2017) Specimen of unknown material (specimen) Walter [...] measures to stabilize the patient. Care Teams Brazing Furnace Feeder Relationship Specialty Start Date End Date Catina Ram MD Consulting Physician Obstetrics & Gynecology 05/16/16
--- OUTSIDE RECORDS SUMMARY | 2024-11-26 12:28 | XMS_ITS | Encounter Summary ---
Author Organization [facility] Address [address] [place] [address] Phone Care Team Providers Care Edge Molder Name Role Phone Catina Ram MD Unavailable Andrew Brownlee MD Primary Care Provider [phone] Reason for Visit * Reason Comments Medication Refill Encounter Details Date Type Department Care Team (Late st Contact Info) Description 05/16/2021 Refill [facility] [address] [place] [address] Andrew Brownlee MD [address] [place] [address] Medication Refill Social History Tobacco Use Types [...] Dept 01/28/21 Office Visit Andrew Brownlee MD [facility] Showing recent visits within past 182 days [...] documented as of this encounter Care Teams Edge Molder Relationship Specialty Start Date End Date Andrew Brownlee MD PCP - General Family Medicine 01/14/19 04/10/24 Catina Ram MD Consulting Physician Obstetrics & Gynecology 05/16/16 documented as of this encounter
--- NOTE | 2024-11-26 12:45 | ED_ITS ---
HPI - Abdominal Pain General Chief Complaint: Urogenital-Female Stated Complaint: left flank pain and hematuria sent from Time Seen by Provider: 11/26/24 11:57 Source: patient Mode of arrival: ambulatory Limitations: no limitations History of Present Illness HPI narrative: This is a 34-year-old female, with history kidney stones who presents to the emergency department complaining of left-sided flank pain, nausea vomiting beginning this morning. Patient states her pain is intermittent, cramping and sharp, radiating from left flank towards the groin. She rates 10/10 at maximum and 8/10 present. She states this is associated with some hematuria though denies fevers. She has no other complaints at this time. Related Data Allergies Allergy/AdvReac Type Severity Reaction Status Date / Time Penicillins Allergy Intermediate Hives Verified 11/26/24 08:43 Review of Systems 2 Review of Systems: All systems reviewed & are unremarkable except as noted in HPI and below PMFSH Past Medical History Medical History History of kidney stones Chronic back pain UTI (urinary tract infection) Depression Surgical History Surgical History H/O breast augmentation Family History Family History Mother No active medical problems Social History Social History Smoking status: Never smoker Alcohol intake: current Alcohol use details: rare social Substance use: never Living arrangements: alone Gender identity (if verbalized by the patient): Female Spiritual care concerns: No Exam 2 Narrative: GENERAL: Well-developed, well-nourished, and in no acute distress. HEAD: Normocephalic, atraumatic. EYES: PERRLA and EOMI. CHEST: Clear to auscultation. No respiratory distress. No wheezes rales or rhonchi HEART: Regular rate and rhythm. No murmur heard. Normal peripheral pulses. ABDOMEN: Soft, mild left upper quadrant tenderness to palpation without rebound or guarding, nondistended, normal active bowel sounds. Mild left CVA tenderness, no right CVA tenderness EXTREMITIES: Normal range of motion. No edema. SKIN: Warm, dry, no rash. NEURO: Alert and oriented x3. No focal deficit. Moving all 4 limbs spontaneously PSYCH: Normal mood and affect. Course Course Emergency Course: 13:05 - CBC demonstrates slightly elevated white blood cell count of 12.6 and mild anemia with hemoglobin of 11.1 but is otherwise unremarkable. Chemistries within normal limits. Urinalysis shows greater than 100 RBCs with 6-10 white blood cells without other changes concerning for urinary tract infection. CT abdomen pelvis demonstrates a 2-3 mm partially obstructing stone at the UVJ on the left without other acute intra-abdominal processes. On re-evaluation after pain and nausea medications, the patient states he feels significantly improved. Will discharge with Flomax, pain and nausea medications and recommendation for Urology and primary care follow-up. I discussed the findings and recommendations with the patient. Discussed return and emergency precautions including signs/symptoms of acute abdomen and intractable vomiting. The patient voiced understanding and agreement with the plan. All questions answered to her satisfaction. Vital Signs Vital signs: Vital Signs Temperature 97.1 F L 11/26/24 10:12 Pulse Rate 78 11/26/24 10:12 Respiratory Rate 16 11/26/24 10:12 Blood Pressure 130/66 11/26/24 10:12 Pulse Oximetry 100 11/26/24 10:12 Oxygen Delivery Room Air 11/26/24 10:12 Temperature 97.1 F L 11/26/24 10:12 Pulse Rate 83 11/26/24 13:29 Respiratory Rate 16 11/26/24 13:29 Blood Pressure 110/67 11/26/24 13:29 Pulse Oximetry 100 11/26/24 13:29 Oxygen Delivery Room Air 11/26/24 10:12 MDM - Abdominal Pain MDM Narrative Medical decision making narrative: Plan: Labs, imaging, pain control, fluids, antiemetics, reassess Differential Diagnosis Differential diagnosis: Likely acute appendicitis, calculus of kidney, constipation, diverticulitis, gastroenteritis, pancreatitis, small bowel obstruction and other (UTI, pyelonephritis, , metabolic abnormality, other) Lab Data 11/26/24 10:45 11/26/24 10:45 Labs: Lab Results 11/26/24 11/26/24 Range/Units 10:45 10:53 WBC 12.6 H (4.5-10.0) K/mm3 RBC 4.25 (4.2-5.4) M/mm3 Hgb 11.1 L (12.0-15.0) g/dL Hct 35.8 L (37.0-47.0) % MCV 84.2 (80-100) fl MCH 26.1 (26-34) pg MCHC 31.0 L (32-36) g/dl RDW 13.9 (11.5-14.5) % Plt Count 288 (150-375) k/mm3 MPV 10.4 (7.4-10.4) fl Immature Gran % (Auto) 0.6 H (0-0.5) % Neut % (Auto) 88.8 H (45.5-73.1) % Lymph % (Auto) 6.7 L (18.3-44.2) % [place] % (Auto) 3.4 (2.6-8.5) % Eos % (Auto) 0.1 (0-4.4) % Baso % (Auto) 0.4 (0.2-1.2) % Lymph # (Auto) 0.84 L (0.9-3.2) K/mm3 [place] # (Auto) 0.4 (0.1-0.6) K/mm3 Eos # (Auto) 0.0 (0-0.3) K/mm3 Baso # (Auto) 0.1 (0.0-0.1) K/mm3 Abs Immat Gran (auto) 0.07 H (0.00-0.031) K/mm3 Absolute Neuts (auto) 11.2 H (1.3-6.7) K/mm3 Absolute Nucleated RBC 0.000 (0.0-0.012) K/mm3 Nucleated RBC % 0.0 (0.0-0.2) % Sodium 139 (137-145) mmol/L Potassium 4.3 (3.4-5.0) mmol/L Chloride 104 (98-107) mmol/L Carbon Dioxide 25 (22-30) mmol/L Anion Gap 10 (4-12) mmol/L BUN 11 (7-17) mg/dL Creatinine 0.71 (0.7-1.0) mg/dL Estim Creat Clear Calc 95 ml/min Estimated GFR > 60 (59 - ) Glucose 103 (65-110) mg/dL Calcium 9.1 (8.4-10.2) mg/dL Total Bilirubin 0.3 (0.2-1.3) mg/dL AST 22 (14-36) U/L ALT 17 (6-35) U/L Alkaline Phosphatase 86 (38-126) U/L Total Protein 8.0 (6.3-8.2) g/dL Albumin 4.6 (3.5-5.1) g/dL Urine Color Dark yellow (Yellow) Urine Appearance Cloudy H (Clear) Urine pH 5.5 (5.0-9.0) Ur Specific [place] 1.024 (1.001-1.035) Urine Protein 2+ H (Negative) mg/dL Urine Glucose (UA) Negative (Negative) mg/dL Urine Ketones Trace H (Negative) mg/dL Ur Blood (Man) 3+ H (Negative) Urine Nitrate Negative (Negative) Urine Bilirubin Negative (Negative) Urine Urobilinogen 1.0 (<2.0) mg/dL Leukocyte Esterase Rfl Trace H (Negative) JANIE/UL Urine RBC >100 H (0-2) /hpf Urine WBC 6-10 H (0-3) /hpf Ur Squamous Epith Cells Occasional (Few) /hpf Urine Bacteria None seen /hpf Urine Casts 3-5 POC Urine HCG, Qual Negative (Negative) Imaging Data Radiologist's impression: ITS Impressions Abdomen/Pelvis CT 11/26/24 12:45 IMPRESSION: 1. Left nephrolithiasis with likely partially obstructing 2-3 mm stone at the left ureterovesicular junction with mild left hydroureter but no hydronephrosis. Discharge Plan Discharge Clinical Impression: Acute left flank pain, Ureterolithiasis Patient Disposition: Home Condition: Stable Instructions: Antibiotic Form, Kidney Stones (ED) Additional Instructions: You were seen in the emergency department. A CT scan showed a 2-3 mm kidney stone on the left side. Recommend pain medications, nausea medications, Flomax and follow-up with a urologist. If you develop severe abdominal pain, fevers abdominal pain, persistent vomiting, or if you have other emergent concerns for life, limb, or eyesight, return to the emergency department. Patient Language: Citizen Of [place] Prescriptions: New tamsulosin [Flomax] 0.4 mg capsule 0.4 mg PO DAILY 14 Days Qty: 14 0RF ondansetron 4 mg tablet,disintegrating 4 mg PO Q8H PRN (Reason: nausea and vomiting) Qty: 12 0RF hydrocodone-acetaminophen 5-325 mg tablet 1 tablet PO Q12H PRN (Reason: pain, severe) Qty: 8 0RF Follow-up/Referrals: Patrice Jacobo MD [Physician] - 2 Weeks UNKNOWN,DOCTOR [Primary Care Provider] - 2 Weeks Time of Disposition: 13:08
[2024-11-26] MEDS: KETOROLAC 30 MG/ML VIAL (*BKC) IV PUSH (13:25)
[2024-11-26 13:29] VITALS: BP 110/67; PULSE 83; RESP 16; O2SAT 100
== END 2024-11-26 13:47 | disposition home or self-care (01) ==
PROVIDERS: Emergency Medicine; Emergency Provider Preventive Medicine Aerospace Medicine
DX: N20.1 Calculus of ureter (principal)
CPT/HCPCS: 36415; 74176; 80053; 81001; 81025; 85025; 87086; 96374; 96375; 99284; J1885; J2270; J2405